=== PATIENT | male | born 1960 | race Asian ===

== ENCOUNTER 2023-12-20 08:53 | Outpatient (RCR) | payer OTHER, SELFPAY | END 2023-12-20 23:59 | disposition home or self-care (01) | LOC: RPT 08:53 | PROVIDERS: ATTENDING PHYSICIAN Internal Medicine | DX: M54.51 Vertebrogenic low back pain (principal); R25.2 Cramp and spasm; Z73.6 Limitation of activities due to disability | CPT/HCPCS: 97110; 97140; 97162 ==

== ENCOUNTER 2023-12-30 09:02 | Outpatient (RCR) | payer OTHER, SELFPAY | END 2023-12-30 23:59 | disposition home or self-care (01) | LOC: RPT 09:02 | PROVIDERS: ATTENDING PHYSICIAN Internal Medicine | DX: M54.51 Vertebrogenic low back pain (principal); R25.2 Cramp and spasm; Z73.6 Limitation of activities due to disability | CPT/HCPCS: 97110; 97140 ==

== ENCOUNTER 2024-02-17 17:02 | Outpatient (RCR) | payer OTHER, SELFPAY | END 2024-02-17 23:59 | disposition home or self-care (01) | LOC: RPT 17:02 | PROVIDERS: ATTENDING PHYSICIAN Internal Medicine | DX: M54.51 Vertebrogenic low back pain (principal); R25.2 Cramp and spasm; Z73.6 Limitation of activities due to disability; M79.642 Pain in left hand | CPT/HCPCS: 97018; 97110; 97140; 97166; 97535 ==

== ENCOUNTER 2024-03-20 09:16 | Outpatient (RCR) | payer OTHER, SELFPAY | END 2024-03-20 23:59 | disposition home or self-care (01) | LOC: RPT 09:16 | PROVIDERS: ATTENDING PHYSICIAN Internal Medicine | DX: M54.51 Vertebrogenic low back pain (principal); R25.2 Cramp and spasm; Z73.6 Limitation of activities due to disability; M79.642 Pain in left hand | CPT/HCPCS: 97010; 97018; 97035; 97110; 97140; 97535 ==

== ENCOUNTER 2024-04-20 12:29 | Outpatient (RCR) | payer OTHER, SELFPAY | END 2024-04-20 23:59 | disposition home or self-care (01) | LOC: RPT 12:29 | PROVIDERS: ATTENDING PHYSICIAN Internal Medicine | DX: M54.51 Vertebrogenic low back pain (principal); R25.2 Cramp and spasm; Z73.6 Limitation of activities due to disability | CPT/HCPCS: 97018; 97035; 97110; 97140 ==

== ENCOUNTER 2024-05-22 10:00 | Outpatient (RCR) | payer OTHER, SELFPAY | END 2024-05-22 12:00 | disposition home or self-care (01) | LOC: RPT 10:00 | PROVIDERS: ATTENDING PHYSICIAN Internal Medicine | DX: M54.51 Vertebrogenic low back pain (principal); R25.2 Cramp and spasm | CPT/HCPCS: 97110; 97140 ==

== ENCOUNTER 2025-02-15 09:28 | Outpatient (RCR) | payer OTHER, SELFPAY | END 2025-02-15 23:59 | disposition home or self-care (01) | LOC: RPT 09:28 | PROVIDERS: ATTENDING PHYSICIAN Internal Medicine | DX: M25.561 Pain in right knee (principal); M54.51 Vertebrogenic low back pain; Z73.6 Limitation of activities due to disability | CPT/HCPCS: 97110; 97140; 97162 ==

== ENCOUNTER 2025-03-21 15:15 | Outpatient (RCR) | payer OTHER, SELFPAY | END 2025-03-21 23:59 | disposition home or self-care (01) | LOC: RPT 15:15 | PROVIDERS: ATTENDING PHYSICIAN Internal Medicine | DX: M25.561 Pain in right knee (principal); M54.51 Vertebrogenic low back pain; Z73.6 Limitation of activities due to disability | CPT/HCPCS: 97110; 97140 ==

== ENCOUNTER → 2025-05-08 09:46 | Outpatient (REF) | payer OTHER, SELFPAY | LOC: MRI 3T 09:46 | PROVIDERS: ATTENDING PHYSICIAN Specialist; FAMILY PHYSICIAN Internal Medicine | DX: R97.20 Elevated prostate specific antigen [PSA] (principal) | CPT/HCPCS: 72197; A9575 ==

== ENCOUNTER 2025-05-19 14:20 | Inpatient (IN) | payer OTHER, SELFPAY ==
[2025-05-19] VITALS (22 sets, daily range): BP systolic 69–139; BP diastolic 43–76; BMI 26.2; BMI 25.7
[2025-05-19 11:15] LABS: Hematocrit 45.7 % (39.0-52.0); Hemoglobin 14.8 g/dL (13.0-18.0); Mean Corp Hgb Conc. 32.4 g/dL (33.0-37.0); Mean Corpuscular Volume 83.4 fL (80.0-94.0); Platelet Count 156 10^3/uL (130-400); Red Cell Dist. Width 12.7 % (11.5-14.5)
[2025-05-19 11:19] LABS: ALT (SGPT) 66 U/L (0-50); AST (SGOT) 54 U/L (17-59); Albumin 4.6 g/dl (3.5-5.0); Alkaline Phosphatase 94 U/L (38-126); Blood Urea Nitrogen 14 mg/dl (9-20); Calcium 8.6 mg/dl (8.4-10.2); Carbon Dioxide 20 mmol/L (22-30); Chloride 106 mmol/L (98-107); Estimated Creatinine Clearance 67 ml/min; Glucose 108 mg/dl (70-99); Potassium 4.4 mmol/L (3.5-5.1); Sodium 137 mmol/L (135-145); Total Protein 7.2 g/dl (6.3-8.2); eGFR > 60.00
--- NOTE | 2025-05-19 11:21 | ED.GENMED ---
History of Present Illness
General
Chief Complaint: Post Operative Problem(s)
Source: patient and spouse
Exam Limitations: none
Time Seen by Provider: 05/19/25 11:10
Nursing documentation reviewed up to this point in time: agreed with
History of Present Illness
History of Present Illness:
Note:
CHIEF COMPLAINT(S)
Cough and breathing difficulty following a biopsy procedure.
HISTORY OF PRESENT ILLNESS
The patient is a 64-year-old male who experienced the onset of cough and breathing difficulty after a biopsy procedure performed yesterday at his physicians office. The biopsy was done under local anesthesia. The patient reports that he began
coughing and was 'breathing really hard' following the procedure.
This episode is reminiscent of a prior experience related to a seizure, although the patient mentions that this is the first time occurring after a biopsy. He recalls an instance of being admitted to the hospital previously for similar symptoms.
In terms of medications, the patient states that he took Tylenol at 8:00 AM, but he is unsure of the precise amount. He believes the dose to be 500 mg. Additionally, the patient has been on an antibiotic, possibly mentioning 'cefixime,' having taken
two doses prior to yesterdays biopsy procedure.
He describes perineal pain and mentions discomfort when turning, alongside stating he felt a mass down there. These symptoms align with chest discomfort, but he denies any severe wheezing or use of inhalers, and there is no history of asthma noted.
The examination reveals a clear auscultation of lungs; however, shallow breathing is noted, warranting a chest X-ray for further evaluation. Given his symptoms, a CT scan has been considered as mentioned in the plan.
EXTERNAL RECORDS REVIEWED
The patient references his previous admission and procedure records, which are suggested to be accessed through a patient portal for current medications and antibiotic details.
SOCIAL DETERMINANTS AFFECTING HEALTH
The patient mentions experiencing anxiety related to his current symptoms and the medical interventions underway.
REVIEW OF SYSTEMS
- Respiratory: Cough and difficulty breathing, shallow respiration noted.
- Gastrointestinal: Possible history of diarrhea noted, though not an immediate concern.
- Genitourinary: Perineal discomfort, reported presence of a mass.
- Neurological: Mentions past experience with seizures.
- Psychiatric: Experiencing anxiety surrounding current health condition.
PHYSICAL EXAM
General: febrile, tachycardia
Skin: Warm, dry.
Head: Normocephalic, atraumatic.
Neck: Supple, trachea midline.
Eye Ears, nose, mouth and throat: Oral mucosa moist.
Cardiovascular: Normal peripheral perfusion, No edema.
Respiratory: Respirations are shallow, but auscultation reveals clear lungs.
Gastrointestinal : Abdomen nondistended
Back: Normal range of motion, Normal alignment.
Musculoskeletal: Normal ROM, normal strength.
Neurological: Alert and oriented to person, place, time, and situation, No focal neurological deficit observed.
Psychiatric: Cooperative, appropriate mood & affect.
PROBLEM LIST
Acute:
- Post-procedural respiratory difficulty
- Cough
- Anxiety related to current medical condition
PLAN
1. Admit the patient to the hospital for observation and management.
2. Conduct a chest X-ray to assess any pulmonary complications.
3. Evaluate the presence of a perineal mass via imaging.
4. Obtain a CT scan to further explore respiratory and related symptoms.
5. Administer medications for pain and anxiety management as indicated.
6. Assess for any potential allergic reaction to the antibiotic regimen with history review.
7. Provide supportive care, including safe mobilization practices to mitigate fall risk.
DIFFERENTIAL DIAGNOSIS
The Differential Diagnosis includes, in no particular order and is not limited to:
1. Post-procedural pneumothorax
2. Pulmonary embolism
3. Infection or abscess formation at the biopsy site
4. Drug-induced lung injury
5. Pneumonia
6. Anxiety-induced hyperventilation
7. Chronic obstructive pulmonary disease exacerbation
8. Heart failure exacerbation
9. Gastroesophageal reflux disease with aspiration
10. Perineal abscess or hematoma
CARE-UPDATE
05/19/25 - 15:03
The patient was admitted for sepsis of unclear etiology, potentially related to colitis. Currently receiving intravenous fluids and antibiotics, including cephalosporin and vancomycin. Will continue monitoring in the hospitalist care.
EKG
My independent EKG interpretation is:
- Time of EKG: Not provided
- Rhythm: Sinus tachycardia
- Heart rate: 122 bpm
- MA interval: Normal
- QRS duration: Normal
- QT interval: Normal
- Capay: Right axis deviation
- Abnormalities: None noted, no signs of ischemia, T wave inversions, or arrhythmias
Disposition:
SUMMARY OF ENCOUNTER
The patient, a 64-year-old male, presented to the emergency department with respiratory difficulty and cough following a biopsy procedure. The patients history included anxiety related to medical interventions and a recent admission for sepsis
potentially related to colitis. During the emergency department visit, the case was discussed with a urologist for suspected urinary retention, and intravenous fluids along with macrolide antibiotics, specifically vancomycin, were administered for
infection treatment.
DISPOSITION
Admit to hospitalists for further observation and care.
ASSESSMENT
Post-procedural respiratory difficulty, suspected sepsis related to colitis, and urinary retention.
EMERGENCY TREATMENTS ADMINISTERED
Administered intravenous fluids and vancomycin.
MANAGEMENT OF THE PATIENTS CARE WAS DISCUSSED WITH
Consultation with urology.
PLAN
The plan includes hospital admission under the care of hospitalists, continued monitoring for sepsis and colitis, initiation of intravenous fluid therapy, and administration of antibiotics. Urology to be involved in further management of urinary
retention.
DIAGNOSIS
1. Post-procedural respiratory difficulty (ICD-10: R06.89)
2. Sepsis, unspecified (ICD-10: A41.9)
3. Colitis, unspecified (ICD-10: K52.9)
4. Urinary retention (ICD-10: R33.9)
Phy Exam
Physical Exam
Physical Exam:
.
Sepsis
Sepsis Screening
Sepsis Assessment: Sepsis
Sepsis Screen
Sepsis Screen: Sepsis
Date: 05/19/25
Time: 15:06
Course
Orders/Labs/Results
Orders:
Orders
05/19/25 10:26
EKG [Electrocardiogram (*1)] Urgent
Reason for Study: Chest Pain
EKG- Treatment ONCE
05/19/25 10:47
Cardiac Monitoring- Treatment ONCE
IV Insert/Care/Rem.- Treatment PRN
Pulse Ox/cont/shift [RESP] Urgent
Quantity: 1
Special Instructions: CONTINUOUS
05/19/25 10:48
Complete Blood Count/With Diff Urgent
Comprehensive Metabolic Panel Urgent
Lactic Acid Q4H
Comment: ON ICE, CANCEL 2ND ORDER IF FIRST LACTIC ACID LEVEL <2
Urinalysis Reflex To Culture Urgent
Date Specimen was Collected: 05/19/25
Time Specimen was Collected: 10:47
Urine Microscopic Reflex Cult Urgent
Urine Culture Urgent
MORALES Source: U
Specimen Description:
Date Specimen was Collected: 05/19/25
Time Specimen was Collected: 10:47
05/19/25 10:57
Blood Culture Q20M
MORALES Source: Blood/Venous
Specimen Description:
Comment: Urgent from separate sites. If patient screens positive for possible sepsis
Blood Culture Q20M
MORALES Source: Blood/Venous
Specimen Description:
Comment: Urgent from separate sites. If patient screens positive for possible sepsis
05/19/25 11:22
0.9% Sodium Chloride 1000 ml [Nss] 2,000 ml IV BOLUS
05/19/25 11:34
Cefepime HCl [Maxipime] 2,000 mg IV NOW STA
05/19/25 11:35
Acetaminophen [Tylenol] 650 mg PO NOW STA
05/19/25 11:36
[place] Placement- Treatment ONCE
Reason for insertion: Acute Retention
CR Chest - 2 Views Urgent
Comment:
Reason For Exam: fever, cough
05/19/25 11:37
CT Abd/pelvis W Iv Cont Urgent
Comment:
Reason For Exam: lower abd pain, prostate biopsy 2d ago
05/19/25 11:57
COVID-19 Antigen Urgent
Source: Nasal Swab
INF RAPID [Influenza A+B Rapid Molecular] Urgent
MORALES Source: Nasal Swab
Specimen Description:
05/19/25 12:18
Sterile Water [Sterile Water For Injection] 10 ml .ROUTE .STK-MED ONE
Sterile Water [Sterile Water For Injection] 20 ml .ROUTE .STK-MED
05/19/25 12:38
Morphine Sulfate 4 mg IV NOW STA
05/19/25 12:39
Ondansetron Injectable [Zofran] 4 mg IV NOW STA
05/19/25 12:58
Vancomycin [Vancocin] 2,000 mg 0.9% Sodium Chloride 500 ml [Nss] 500 ml IV NOW
05/19/25 13:58
Admit/Transfer Patient As Directed
Co-Sign Provider:
Level of Care: Inpatient admission
Assign to:: IMU- Intermediate Care
Physician / Group: hospital medicine
Diagnosis: sepsis
Reason for Hospitalization: sepsis
Expected length of stay greater than two midnights?: Yes
ELOS- Estimated Length of Stay in days: 3
I certify the patient meets the requirements for IP care: Yes
PRN Pain Medication Management As Directed
May give lesser potent ordered pain med per pt: Yes
preference::
Protocol:: Medication orders for pain may be administered in a
manner that supports deferring to patient preference
when the pt is:
- Requesting an ordered lesser potent pain medication.
Least to most potent pain medications are defined
as: acetaminophen < NSAID < tramadol < opioids
(morphine, oxycodone, hydromorphone).
- Requesting a lesser dose of the same medication IF
ORDERED.
- Requesting a less intrusive route of administration
if both routes are prescribed by the provider (PO <
IV).
05/19/25 14:01
Code Status As Directed
Resuscitation Status: Full Code
05/19/25 15:00
Lactic Acid Q4H
Comment: ON ICE, CANCEL 2ND ORDER IF FIRST LACTIC ACID LEVEL <2
05/19/25 22:00
Cefepime HCl [Maxipime] 2,000 mg IV Q12H
Abnormal Lab Results
05/19/25
10:48
WBC 1.7 L* 10^3/uL
(4.8-10.8)
MCHC 32.4 L g/dL
(33.0-37.0)
Absolute Neuts (auto) 1.3 L 10^3/uL
(1.4-6.5)
Absolute Lymphs (auto) 0.4 L 10^3/uL
(1.2-3.4)
Absolute Monos (auto) 0.0 L 10^3/uL
(0.1-0.6)
Immature Gran % 1.2 H %
(0-0.5)
Monocytes % 1.2 L %
(1.7-9.3)
Carbon Dioxide 20 L mmol/L
(22-30)
Glucose 108 H mg/dl
(70-99)
Lactic Acid 3.7 H mmol/L
(0.7-2.0)
ALT 66 H U/L
(0-50)
Ur Occult Blood Reflex 4+ A
(Negative)
Leukocyte Esterase Rfl 1+ A
(Negative)
Urine RBC 90-100 A /HPF
(0-2)
Urine Bacteria (Reflex) Moderate A
(Negative)
Urine Albumin (Reflex) 3+ A
(Neg - Trace)
05/19/25 10:48
05/19/25 10:48
Vital Signs
Initial and Last Documented VS:
Initial Vital Signs
Temp Pulse Resp Pulse Ox
102.7 F H 127 20 95
05/19/25 10:24 05/19/25 10:24 05/19/25 10:24 05/19/25 10:24
Last Documented Vital Signs
Temp Pulse Resp BP Pulse Ox
104.1 F H 130 20 105/64 95
05/19/25 10:28 05/19/25 13:15 05/19/25 12:30 05/19/25 13:10 05/19/25 13:15
*Pulse Oximetry
SaO2: 96
Oxygen Mode of Delivery: Room air
Patient hypoxic: no
*Critical Care Note
Total Time (30-74mins, 75-104mins- exclusive of procedures): Not Applicable
ED Attending Note
-
Portions of this chart may have been created with voice recognition software.� Occasional wrong word or��sound alike� substitutions may have occurred due to the inherent limitations of voice recognition software.
Discharge Plan
Departure
Patient Disposition: Admit
Date of Disposition: 05/19/25
Time of Disposition: 12:58
Admit to: IMU
Presentation/result/management discussed w/ accepting MD/DO: Hospitalist
Patient with high blood pressure during this ER visit?: Yes
Condition: Fair
Discharge Problem:
Sepsis, Colitis, Acute urinary retention
Interventions
Interventions:
*Risk Screen - Suicide Last Done: 05/19/25 10:28
*General Assessment Last Done: 05/19/25 10:28
*ED COVID-19 Vaccine History Last Done: 05/19/25 10:46
[2025-05-19 11:25] LABS: Urine Character Slightly Cloudy (Clear)
[2025-05-19] MEDS: MAXIPIME 2000 MG IV (11:40)
[2025-05-19] MEDS: TYLENOL 650 MG PO ×2 (11:40→18:15)
[2025-05-19 11:41] LABS: Nucleated Red Blood Cells % 0 % (-)
[2025-05-19] MEDS: NSS 2000 IV (11:41)
[2025-05-19 12:07] LABS: Urine Red Blood Cell 90-100 /HPF (0-2)
[2025-05-19 12:25] LABS: COVID-19 Antigen Negative (Negative)
[2025-05-19] MEDS: MORPHINE SULFATE 4 MG IV (13:01)
[2025-05-19] MEDS: ZOFRAN 4 MG IV (13:02)
[2025-05-19] MEDS: VANCOCIN 540 MG IV (13:26)
--- NOTE | 2025-05-19 13:36 | HPS.HSE ---
Family Physician
-
Family Physician: NOT KNOW UNKNOWN - PT DOES
Chief Complaint
-
sepsis, urinary retention s/p prostate bx 1 day ago
History of Present Illness
64yoM PMH HLD presenting POD 1 from prostate bx with rigors, fever, nausea, vomiting, and urinary retention.
Pt was in usual state of health presented to the urologist for prostate bx for PI RADS 3 lesion on apex. Pt took cefdinir , today as prophylaxis for procedure. He was urinating appropriately and felt fine after the procedure. Upon waking this
morning, he was able to urinate but began to feel febrile, wheeze, and lightheaded. He then was unable to urinate independently. Pt reports having rigors, becoming weak. His called EMS.
In ED, pt was found to be febrile to 104.1, tachycardic to the 130s, normotensive. He was started on IVF and empiric abx cefepime and vancomycin. Upon leon placement, he was found to have hematuria. Pt reports resolved bloating feeling with leon
but continued sensation of having to void. He had formed stool today, denying diarrhea or constipation. In ED, pt reports nausea and vomiting.
Pt reports hx of retention 3 years ago whe he had fever and chillls with resolution after PO abx.
Medical History
Past Medical History
Past Medical History: Reports Hypercholesterolemia and Other (urinary retention 3 years ago)
Past Surgical History: Reports None
Social History
Tobacco: Non-smoker
Alcohol: Occasional
Personal:
Living: With Family
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
Family History
Family History: Not pertinent
Allergies / Home Medications
Allergies reflects when Allergies were last updated in [employer].
Home Medications with original date entered in [employer]
Allergy/Medication List:
NKDA
Review of Systems
-
History Source: Patient
A 12 point ROS was completed and negative except as noted: Yes
Constitutional: Reports Fever, Fatigue, Night Sweats and Chills
EENT: Reports No Symptoms
Respiratory: Reports No Symptoms (SOB resolved)
Cardiac: Reports No Symptoms
Abdomen/GI: Reports Nausea and Vomiting; Denies Abdominal Pain, Diarrhea or Bloody Stools
: Reports Bleeding and Leon
Musculoskeletal: Denies No Symptoms
Skin: Denies No Symptoms
Neurological: Denies No Symptoms
Endocrine: Denies No Symptoms
Hematologic/Lymphatic: Denies No Symptoms
Psych: Reports No Symptoms
Physical Exam
Vital Signs
Vital Signs
Temp Pulse Resp BP Pulse Ox
104.1 F H 130 20 105/64 95
05/19/25 10:28 05/19/25 13:15 05/19/25 12:30 05/19/25 13:10 05/19/25 13:15
Physical Exam
General: Well Developed, Well Nourished, No Apparent Distress, Comfortable, Fever and Sweats
HEENT: NormoCephalic, Anicteric, Moist mucous membranes and [place] Conjunctivae
Respiratory: Clear and Non Labored Respirations
Cardiac: S1/S2 and Regular Rhythm
GI: Soft, Non Tender (mild reported tenderness to deep palpation, non- peritonitic ) and Non Distended (baseline)
Genito-urinary: Bloody Urine and Leon
Musculoskeletal: No Edema
Skin: Warm
Neuro: AO x 3 and Nonfocal/grossly intact
Psych: Anxious
Laboratory Results
-
05/19/25 10:48
05/19/25 10:48
Laboratory Results
Lactic Acid 3.7 mmol/L (0.7-2.0) H 05/19/25 10:48
Total Bilirubin 1.0 mg/dl (0.2-1.3) 05/19/25 10:48
AST 54 U/L (17-59) 05/19/25 10:48
ALT 66 U/L (0-50) H 05/19/25 10:48
Alkaline Phosphatase 94 U/L (38-126) 05/19/25 10:48
Impression/Plan
-
IMPRESSION:
64yoM PMH urinary retention 3 years ago with recent prostate bx yesterday presenting with signs of sepsis. Pt is febrile Tmax 104.1, tachycardic 130, and leukopenic WBC 1.7, normotensive 139/76.
Pt received prophylactic cefdinir before and after prostate bx procedure yesterday, reports adherence. Pt has hx of urinary retention and fever treated outpt with PO abx 3 years ago. Discussion with urology, surmising likely acute on chronic
prostatitis aggravated in setting of prostate bx. CT demonstrated enteritis and transverse colitis, seemingly a sequelae of sepsis rather than source. Resolving nausea and vomiting, no abdominal pain. Lactic acidosis 3.7. Hematuria once leon
placed. ECG demonstrated sinus tachycardia with r axis.
PLAN:
#sepsis
#metabolic lactic acidosis
#prostatitis
- Continue broad spectrum abx cefepime and vancomycin adding flagyl for anaerobes
- IVF 150ml/hr s/p 2L bolus in ED
- ID consulted
- Urology following
- Follow enteritis. No abdominal pain. Trial clears, monitor for nausea.
- BC pending. Urine cultures pending.
- Flu, covid negative
- Keep leon in 1-2 days for retention and concerns of inflamation
DVT prophylaxis: lovenox
Diet: clears
Disposition: Admit to IMU
--- NOTE | 2025-05-19 14:15 | W.PN.URO.CBU ---
Today's Communication / Plan
-
continue present care
Assessment / Plan
-
urosepsis for transrecta bx prostae no physical eveidence of transverse colitis continue iv abs to cover anaerobes keep leon monitor wb
Diagnosis
-
Date of Service: May 19, 2025
-
Patient Diagnosis:sepsis s/p transrectal prostae bxs despite cefdir and tobramycin
Subjective
-
feeling better
Objective
-
Vital Signs
Temp Pulse Resp BP Pulse Ox
104.1 F H 130 20 105/64 95
05/19/25 10:28 05/19/25 13:15 05/19/25 12:30 05/19/25 13:10 05/19/25 13:15
Laboratory Results
05/19/25 10:48
05/19/25 10:48
Review of Systems
-
: Frequency and Difficulty Voiding
Physical Exam
-
General - well developed, well nourished, no acute distress
Chest - clear bilaterally
Abdomen - soft, non-tender, positive bowel sounds, no CVAT, no incisional pain or distention
Genitalia - normal
Rectal - normal
Skin - warm & dry with no rash
Neuro - AOx3, no motor deficits
Extremities - no clubbing, no cyanosis, no edema
Incision - clean, dry
Dressing - clean, dry, intact
Care Review
Data Reviewed
Discussed with: Internal Medicine, Nursing and Family
CT Scan: Image Pers Reviewed
--- NOTE | 2025-05-19 14:31 | PHA.VAN.IN ---
Assessment
- Assessment
Renal Function: Unknown baseline
Maximum Temperature: 104.1 F
Concomitant Antimicrobials: CEFEPIME
AUC Dosing Plan
- Dosing Variables
Dosing Weight (kg): 80
Dosing CrCl (ml/min): 67
Vd coefficient (L/kg): 0.7
- Empiric Dosing
Initial / Loading Dose: VANCO 2000MG X1
Maintenance Regimen: VANCO 750MG Q12H
Estimated AUC (mcg*h/mL): 466
Estimated Peak (mcg*h/mL): 26.1
Estimated Trough (mcg/ml): 13.9
Estimated Half Life (H): 11.5
- Monitoring
No levels ordered at this time: CONSIDER LEVELS AT STEADY STATE
Pharmacokinetics Vancomycin I
- -
Patient Age: 64
Patient Sex: Male
Vancomycin Day #: 1
Indication: Genito-Urinary Tract
Requesting Provider: DR. MORENO
Height / Weight:
Height 5 ft 9 in
Actual Weight 80.3 kg
- Vital Signs / Lab Results
Temp Pulse Resp BP Pulse Ox
104.1 F H 130 20 105/64 95
05/19/25 10:28 05/19/25 13:15 05/19/25 12:30 05/19/25 13:10 05/19/25 13:15
Lab Results - Hematology
05/19/25
10:48
WBC 1.7 L*
Lab Results - Chemistry
05/19/25
10:48
BUN 14
Creatinine 1.1
Estimated Creat Clear 67
Albumin 4.6
05/19/25
10:48
Lactic Acid 3.7 H
Lab Results - Urine
05/19/25
10:48
Urine Nitrite (Reflex) Negative
Leukocyte Esterase Rfl 1+ A
Urine WBC (Reflex) 6-10
Ur Squamous Epith Cells 3-5
Urine Bacteria (Reflex) Moderate A
Microbiology Results
05/19/25 11:57 Influenza Types A & B (DESTINI) - Final
Nasal Swab Negative for Influenza A & B, NAAT
Negative results must be combined with clinical observations
and patient history.
Nucleic Acid Amplification test (NAAT)performed on the
[employer] platform.
--- NOTE | 2025-05-19 15:03 | HPS.HSE ---
Addendum entered and electronically signed by Marv Rincon MD 05/29/25 08:45:
Read, reviewed, and agree. See same day progress note for additional details. Time spent reviewing records in EMR, med rec, consults, notes, d/w consultants, nursing, family, and CM
Addendum entered and electronically signed by Ana Botello MD, Resident 05/28/25 18:47:
Not on home medications.
Original Note:
Family Physician
-
Family Physician: NOT KNOW UNKNOWN - PT DOES
Chief Complaint
-
sepsis, urinary retention s/p prostate bx 1 day ago
History of Present Illness
64yoM PMH HLD presenting POD 1 from prostate bx with rigors, fever, nausea, vomiting, and urinary retention.
�
Pt was in usual state of health presented to the urologist for prostate bx for PI RADS 3 lesion on apex. Pt took cefdinir , , today as prophylaxis for procedure. He was urinating appropriately and felt fine after the procedure. Upon waking this
morning, he was able to urinate but began to feel febrile, wheeze, and lightheaded. He then was unable to urinate independently. Pt reports having rigors, becoming weak. His called EMS.
�
In ED, pt was found to be febrile to 104.1, tachycardic to the 130s, normotensive. He was started on IVF and empiric abx cefepime and vancomycin. Upon leon placement, he was found to have hematuria. Pt reports resolved bloating feeling with leon
but continued sensation of having to void. He had formed stool today, denying diarrhea or constipation. In ED, pt reports nausea and vomiting.
�
Pt reports hx of retention 3 years ago whe he had fever and chillls with resolution after PO abx.
�
Medical History
Past Medical History
Past Medical History: Reports Hypercholesterolemia and Other (urinary retention 3 years ago)
Past Surgical History: Reports None
Social History
Tobacco: Non-smoker
Alcohol: Occasional
Personal:
Living: With Family
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)
Family History
Family History: Not pertinent
Allergies / Home Medications
Allergies reflects when Allergies were last updated in [employer].
Home Medications with original date entered in [employer]
Allergy/Medication List:
NKDA
Review of Systems
-
History Source: Patient
A 12 point ROS was completed and negative except as noted: Yes
Constitutional: Reports Fever, Fatigue and Chills
EENT: Reports No Symptoms
Respiratory: Reports No Symptoms (SOB resolved)
Cardiac: Reports No Symptoms
Abdomen/GI: Reports Nausea; Denies Abdominal Pain, Diarrhea or Bloody Stools
: Reports Bleeding and Leon
Musculoskeletal: Reports No Symptoms
Skin: Reports No Symptoms
Neurological: Reports No Symptoms
Endocrine: Reports No Symptoms
Hematologic/Lymphatic: Reports No Symptoms
Psych: Reports Anxiety
Physical Exam
Vital Signs
Vital Signs
Temp Pulse Resp BP Pulse Ox
98.6 F 113 22 81/55 95
05/20/25 03:00 05/20/25 06:30 05/20/25 06:30 05/20/25 06:30 05/20/25 06:30
Physical Exam
General: Well Developed, Well Nourished, Appears in Distress, Pain and Fever
HEENT: NormoCephalic, Anicteric, Moist mucous membranes, PERRLA and [place] Conjunctivae
Respiratory: Clear and Non Labored Respirations
Cardiac: S1/S2 and Regular Rhythm
GI: Soft, Non Tender (mild tenderness to deep palpation, nonperitonitic ) and Non Distended
Genito-urinary: Bloody Urine and Leon
Musculoskeletal: No Clubbing, No Cyanosis and No Edema
Skin: Warm; No Dry (diaphoretic)
Neuro: AO x 3, No Motor Deficits and Nonfocal/grossly intact
Laboratory Results
-
05/20/25 03:56
05/20/25 03:56
Laboratory Results
Lactic Acid 2.7 mmol/L (0.7-2.0) H 05/20/25 03:56
Total Bilirubin 0.9 mg/dl (0.2-1.3) 05/20/25 03:56
AST 240 U/L (17-59) H 05/20/25 03:56
ALT 183 U/L (0-50) H 05/20/25 03:56
Alkaline Phosphatase 50 U/L (38-126) 05/20/25 03:56
Impression/Plan
-
IMPRESSION:
64yoM PMH urinary retention 3 years ago with recent prostate bx yesterday presenting with signs of sepsis. Pt is febrile Tmax 104.1, tachycardic 130, and leukopenic WBC 1.7, normotensive 139/76.
�
Pt received prophylactic cefdinir before and after prostate bx procedure yesterday, reports adherence. Pt has hx of urinary retention and fever treated outpt with PO abx 3 years ago. Discussion with urology, surmising likely acute on chronic
prostatitis aggravated in setting of prostate bx. CT demonstrated enteritis and transverse colitis, seemingly a sequelae of sepsis rather than source. Resolving nausea and vomiting, no abdominal pain. Lactic acidosis 3.7. Hematuria once leon
placed. ECG demonstrated sinus tachycardia with r axis.
�
�
PLAN:
#sepsis
#metabolic lactic acidosis
#prostatitis
- Continue broad spectrum abx cefepime and vancomycin adding flagyl for anaerobes
- IVF 150ml/hr s/p 2L bolus in ED
- ID consulted
- Urology following
- Follow enteritis. No abdominal pain. Trial clears, monitor for nausea.
- BC pending. Urine cultures pending.
- Flu, covid negative
- Keep loen in 1-2 days for retention and concerns of inflamation
�
DVT prophylaxis: lovenox
Diet: clears
Disposition: Admit to IMU
--- NOTE | 2025-05-19 15:13 | W.PN.UPDATE ---
Update Note
Progress Note Update
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 States woke up this morning with wheezing abdominal pain. CT abdomen pelvis demonstrating transverse colitis along with prostate
hypertrophy no abscess. While in the ED Regalado catheter was placed found to be leukopenic with a lactate of 3.7. Provided with 2 L of IV fluid along with cefepime and vancomycin. Personally spoke with urology in front of his room recommended
anaerobic coverage due to transrectal approach of biopsy.
Abdomen mildly distended however without evidence of rigidity/peritonitic findings. He is warm to touch though recorded temperature over 104.1.
Sepsis with fever leukopenia source likely GI/
- Check stool cultures however unlikely as decline diarrhea/nausea vomiting therefore low clinical suspicion for active colitis
- Continue serial abdominal examinations
- Follow-up blood and urine culture
- Start Flagyl for anaerobic coverage, continue cefepime for recent GC you intermittent hesitation for Pseudomonas coverage, continue vancomycin
- Sepsis bundle
- Follow-up lactate, until cleared
- ID consult
Metabolic acidosis secondary to lactic acid
- IV fluid maintenance
BPH
- Continue Flomax
- Follow up on protstate bx
- Uro following
--- NOTE | 2025-05-19 15:25 | CON.ID ---
Consultation
-
Date/Time Consultation Requested: May 19, 2025 1513
Date/Time Consultation Performed: May 19, 2025 152
Requesting Provider: Dr. Ana Botello
Performing Provider: Dr. Mary Banegas
Reason for Consultation: Prostate biopsy yesterday with sepsis
Chief Complaint / Past History
Chief Complaint
Rigors and wheezing
History of Present Illness
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 The patient reports he was prescribed prophylactic cefdinir. He
also received tobramycin at time of procedure. He was fine post procedure, urinating well, formed stool. However last night he developed sudden onset of severe shaking chills/rigors, and started to wheeze/air hunger. Was coughing a little bit.
This morning he noted perineal pain without bladder and rectum. No abdominal pain. No diarrhea. In the ER temperature up to 104, white count of 1.7. CT abdomen pelvis�possible mild colitis of the transverse colon versus due to limited
distention, no prostate abscess. Patient was dripping blood from the urethra and therefore Regalado catheter placed. He feels better after Regalado catheter placement. No flank pain.
Past History
Additional Past Medical History:
Dyslipidemia
BPH
Atopic dermatitis
Additional Past Surgical History:
Bilateral hernia repair
Hernia repair with mesh
Lisfranc arch injury left foot repair
Allergy History:
No Known Allergies Allergy (Verified 05/19/25 10:24)
Medications Reviewed: Yes
Current Antibiotics:
Cefepime
Vancomycin
Metronidazole
Social History
Tobacco: Non-Smoker
Alcohol: None
Drug: None
Living: With Family
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
Review of Systems
Review of Systems
General: Fever, Chills and Change in Appetite
HEENT: Negative Sinus Problems or Headache
Cardiovascular: Negative Chest Pain
Respiratory: Negative Dyspnea, Cough or Sputum Production
Gasteroenterology: Negative Nausea, Vomiting or Diarrhea
Genital / Urological: Hematuria; Negative Flank Pain
Endocrine: Weakness
Skin / Hair / Nails: Negative Rash
Neurological: Negative Dizziness
All systems: All other systems were reviewed and were negative
Vital Signs
Temp Pulse Resp BP Pulse Ox
104.1 F H 130 20 105/64 95
05/19/25 10:28 05/19/25 13:15 05/19/25 12:30 05/19/25 13:10 05/19/25 13:15
Physical Exam
Physical Exam
Constitutional: No Acute Distress and Non-toxic
Eyes: No Conjunctival Hemorrhage and Sclera Anicteric
Cardiovascular: S1/S2
Pulmonary: Clear
Gastrointestinal: Soft, Non Tender, Non Distended and Normal Bowel Sounds
Genito-Urinary: Regalado; Negative CVA Tenderness
Extremities: Negative Edema
Neurological: AO x 3
Lab / Diagnostic Study Results
05/19/25 10:48
05/19/25 10:48
Abs Immat Gran (auto) 0.0 10^3/uL (0-0.05) 05/19/25 10:48
Absolute Neuts (auto) 1.3 10^3/uL (1.4-6.5) L 05/19/25 10:48
Absolute Lymphs (auto) 0.4 10^3/uL (1.2-3.4) L 05/19/25 10:48
Absolute Monos (auto) 0.0 10^3/uL (0.1-0.6) L 05/19/25 10:48
Absolute Basos (auto) 0.0 10^3/uL (0-0.2) 05/19/25 10:48
Immature Gran % 1.2 % (0-0.5) H 05/19/25 10:48
Neutrophils % 75.0 % (42.2-75.2) 05/19/25 10:48
Lymphocytes % 21.4 % (20.5-51.1) 05/19/25 10:48
Monocytes % 1.2 % (1.7-9.3) L 05/19/25 10:48
Eosinophils % 0.6 % (0-6) 05/19/25 10:48
Basophils % 0.6 % (0-2) 05/19/25 10:48
Lactic Acid 3.7 mmol/L (0.7-2.0) H 05/19/25 10:48
Ur Squamous Epith Cells 3-5 /LPF (Few) 05/19/25 10:48
Microbiology Results
Micro:
05/19/25 11:57 Influenza Types A & B (DESTINI) - Final
Nasal Swab Negative for Influenza A & B, NAAT
Negative results must be combined with clinical observations
and patient history.
Nucleic Acid Amplification test (NAAT)performed on the
[employer] platform.
05/19/25 10:48 Urine Culture - Pending
Urine
05/19/25 10:57 Blood Culture - Pending
Blood/Venous
05/19/25 10:57 Blood Culture - Pending
Blood/Venous
05/19/25 CT a/p: Possible mild colitis of the transverse colon versus findings due to limited distention. Limited evaluation without oral contrast. Moderate prostate hypertrophy.No evidence of abscess formation.
Assessment / Plan
# Suspect bacteremia from prostate biopsy
# Sepsis: fever, leukopenia, tachycardia, elevated lactic acid
# s/p transrectal prostate biopsy 05/18/25
- Follow blood cx's
- DC Vanco, cefepime, metronidazole.
- At risk for ESBL post prostate bx. Cover with meropenem 500mg IV q6h.
- Trend temps, wbc.
# Possible mild transverse colitis on CT DOES NOT clinically correlate
--- NOTE | 2025-05-19 15:38 | CM ---
CM met with pt bedside
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
Pt is independent with his ADLs, denies use of DMEs, drives+
Confirmed [facility] plan with Rx coverage
PCP- Andre Washburn
Rx- Kian Wallis
Discharge Disposition- home, follow for needs
[2025-05-19] MEDS: LR 1000 IV ×3 (15:51→21:59)
[2025-05-19] MEDS: NSS (PRESERVATIVE FREE) 10 ML IV (16:03)
[2025-05-19] MEDS: PROTONIX IV 40 MG IV (16:03)
[2025-05-19] MEDS: LOVENOX 40 MG SC (18:15)
[2025-05-19] MEDS: STERILE WATER FOR INJECTION 10 ML IV ×2 (18:15→23:23)
[2025-05-19] MEDS: MERREM 500 MG IV ×2 (18:16→23:22)
--- NOTE | 2025-05-19 18:36 | PTCARENOTE ---
pt arrived via ed. aaox3. anxious. able to walk to the bed. states 10/10 pain in penis attila area from leon cath. temp 100.4 tylenol given as ordered. ivf running as ordered. pt resp rate 40 slight ex wheeze. bp 88/63 heart rate 120's. made
aware of pt condition.
--- NOTE | 2025-05-19 18:41 | W.PN.UPDATE ---
Update Note
Progress Note Update
Nurse updated 'BP 88/63 Resp 40 with slight expiratory wheeze saturating 95%. 100.4F'
On exam, pt is breathing around 30/min, denying lightheadedness in bed, no wheezes appreciated.
Start with fluid bolus. Levophed for MAP<65. 2L NC, titrate as needed for SpO2>92
[2025-05-19] MEDS: LEVOPHED 250 IV (19:08)
[2025-05-19] MEDS: DILAUDID 0.5 MG IV ×2 (19:21→23:22)
--- NOTE | 2025-05-19 20:00 | PTCARENOTE ---
Received pt. at 1900. Pt. awake, alert, and oriented. C/o pain related to prostate. Hypotensive. Levophed infusion started to maintain MAP >65. PRN Dilaudid given once vasopressor was started, see OCT. Heart rhythm sinus tach. Currently on room air.
Lungs sound diminished. Clear liquid diet is ordered. Abdomen round. [address] catheter [address] place. Draining without issue. Skin as documented. Discussed plan of care with patient and who is at bedside.
[2025-05-20] VITALS (44 sets, daily range): BP systolic 81–174; BP diastolic 55–107; PULSE 2–113; BMI 25.7
[2025-05-20 04:17] LABS: Hematocrit 38.2 % (39.0-52.0); Hemoglobin 12.7 g/dL (13.0-18.0); Mean Corp Hgb Conc. 33.2 g/dL (33.0-37.0); Mean Corpuscular Volume 84.0 fL (80.0-94.0); Platelet Count 112 10^3/uL (130-400); Red Cell Dist. Width 13.2 % (11.5-14.5)
[2025-05-20 04:31] LABS: Nucleated Red Blood Cells % 0 % (-)
[2025-05-20] MEDS: DILAUDID 0.5 MG IV ×3 (04:31→19:55)
[2025-05-20] MEDS: LR 1000 IV ×3 (04:41→17:40)
[2025-05-20 04:49] LABS: ALT (SGPT) 183 U/L (0-50); AST (SGOT) 240 U/L (17-59); Albumin 3.2 g/dl (3.5-5.0); Alkaline Phosphatase 50 U/L (38-126); Blood Urea Nitrogen 18 mg/dl (9-20); Calcium 7.0 mg/dl (8.4-10.2); Carbon Dioxide 20 mmol/L (22-30); Chloride 110 mmol/L (98-107); Estimated Creatinine Clearance 63 ml/min; Glucose 84 mg/dl (70-99); Potassium 4.3 mmol/L (3.5-5.1); Sodium 136 mmol/L (135-145); Total Protein 5.4 g/dl (6.3-8.2); eGFR > 60.00
[2025-05-20] MEDS: VALIUM INJECTION 2 MG IV (04:57)
[2025-05-20] MEDS: MERREM 500 MG IV ×4 (04:58→23:40)
[2025-05-20] MEDS: STERILE WATER FOR INJECTION 10 ML IV ×4 (04:58→23:40)
[2025-05-20] MEDS: VAPONEFRIN NEBS 0.5 ML INH (05:44)
[2025-05-20] MEDS: BENADRYL 50 MG IV (05:45)
[2025-05-20] MEDS: PEPCID 20 MG IV (05:51)
[2025-05-20] MEDS: ZOFRAN 4 MG IV (05:58)
--- NOTE | 2025-05-20 06:00 | PTCARENOTE ---
After receiving IV valium, pt. complaining of shakes. Became tachycardic. Expiratory wheezing in upper airway. Hypertensive. Contacted house provider. IV benadryl given. Respiratory contacted as well. Racemic epinephrine given by respiratory
therapist. Pt. also having episodes of dry heaving. IV zofran and IV pepcid administered. STAT chest x ray ordered. Pt. is now more calm. Blood pressure normotensive. Remains tachycardic. No audible wheezing at this time. IV valium placed on hold.
[2025-05-20] MEDS: NSS (PRESERVATIVE FREE) 8 ML IV (06:04)
--- NOTE | 2025-05-20 06:10 | W.PN.UPDATE ---
Update Note
Progress Note Update
RN reported patient having trouble breathing tachypneic 26, with expiratory wheezing. patient seen and evaluated. patient anxious noted to be in respiratory distress with audible wheezing, ? mild stridor 98.6 150/ 100's 130's, 30-40 97% 2l, patient
reports difficulty breathing, denies swelling of tongue or throat swelling, stated stomach upset and noted dry heaving, nauseous, RT made aware, Racemic neb , IV Benadryl IV Pepcid IV Zofran given. Chest Xray r/o volume overload
116/72 99% 2l 24 115-120, patient states feeling much better, faint wheeze auscultated, HR Regular tachy, abd distended + BS hypoactive + Flatus LBM 05/[address] draining well
patient had received IV Valium one hour prior, patient states his discomfort started shortly after that with wheezing getting worse
will hold Valium at present, Levophed on hold currently, chest xray pending
unsure Valium related reaction, paradoxical, though patient thinks it may be from Valium
--- NOTE | 2025-05-20 07:08 | W.PN.HOSP.TC ---
Addendum entered and electronically signed by Marv Rincon MD 05/29/25 08:45:
Read, reviewed, and agree. See same day progress note for additional details. Time spent reviewing records in EMR, med rec, consults, notes, d/w consultants, nursing, family, and CM
Addendum entered and electronically signed by Marv Rincon MD 05/20/25 12:36:
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 States woke up this morning with wheezing abdominal pain. CT abdomen pelvis demonstrating transverse colitis along with prostate
hypertrophy no abscess. While in the ED Leon catheter was placed found to be leukopenic with a lactate of 3.7. Provided with 2 L of IV fluid along with cefepime and vancomycin. Personally spoke with urology in front of his room recommended
anaerobic coverage due to transrectal approach of biopsy.
Abdomen mildly distended however without evidence of rigidity/peritonitic findings. He is warm to touch though recorded temperature over 104.1.
Septic shock secondary to GNR bacteremia (ankush gregorio) with fever leukopenia source likely GI/, hypotensive with map <65 breifly
-Started on pressors overrnight, was able to wean
- Check stool cultures however unlikely as decline diarrhea/nausea vomiting therefore low clinical suspicion for active colitis
- Continue serial abdominal examinations
- Follow-up blood and urine culture
- ID started Meropenem
- Sepsis bundle
- Follow-up lactate, until cleared
- ID following
Metabolic acidosis secondary to lactic acid
- IV fluid maintenance
BPH
- Continue Flomax
- Follow up on protstate bx
- Uro following
Original Note:
Today's Communication/Plan
-
Plan reviewed with attending
Continue fluid resuscitation.
Continue meropenem, BC and UC positive for E coli
ID and urology following
RUQ US
Monitor in IMU
Trend lactate
MAP >65 levophed
Assessment / Plan
Assessment / Plan
IMPRESSION:
64yoM PMH urinary retention 3 years ago with recent prostate bx yesterday presenting with signs of sepsis.
Admitted for Tmax 104.1, tachycardic 130, and leukopenic WBC 1.7, normotensive 139/76. Pt received prophylactic cefdinir before and after prostate bx procedure, reports adherence. Pt has hx of urinary retention and fever treated outpt with PO abx 3
years ago. Discussion with urology, surmising likely acute on chronic prostatitis aggravated in setting of prostate bx. CT demonstrated enteritis and transverse colitis, seemingly a sequelae of sepsis rather than source. Resolving nausea and
vomiting, no abdominal pain. Lactic acidosis 3.7. Hematuria once leon placed. ECG demonstrated sinus tachycardia with r axis.
Overnight, pt BP dropped. Fluid bolus given. Levophed started for MAP<65. Pt was complaining of bladder spasms and received dose valium to relieve symptoms with acute onset of wheezing, diaphoresis, hypertension ameliorated with bendryl, pepcid,
racemic epi, zofran. After episode, pt BP stabilized.
Today, pt still feels ill but improving with resolved nausea, SOB. Afebrile. CXR demonstrated bibasilar atelectasis with correlation on exam, not concerned for pneumonia currently. WBC 16.7. Lactate trending down, most recent 2.5. LFTs elevated AST
250 AST 183. Stooling appropriately. [place], blood tinged urine, less red than yesterday. BC and UC positive for E coli. Second BC drawn.
�
�
PLAN:
#septic shock
#metabolic lactic acidosis
#prostatitis
- Continue abx.
- ID following, recommended meropenem with concern of ESBL.
- IVF 150ml/hr s/p 2L bolus in ED. LR bolus last night.
- Urology following
- Follow enteritis, most likely in setting of sepsis. No abdominal pain. Trial clears, monitor for nausea.
- BC and UC positive for E coli. Awaiting sensitivities. Second BC pending.
- Flu, covid negative
- Keep leon in 1-2 days for retention and concerns of inflammation
#urinary retention
#bladder/urethral spasms
- Leon in place
- Urology following: Recommend against antispasmodics with risk of further retention. Recommended valium, although on hold due to the reaction overnight. No suppositories with prostatitis
#transaminitis
- in setting of septic shock, possible end organ damage.
- RUQ abdominal US ordered
�
DVT prophylaxis: lovenox
Diet: clears
Disposition: IMU
Anticipated Discharge: 24 - 48 hours
Subjective/Interval History
-
Date of Service: May 20, 2025
Pt reports continued bladder and urethra discomfort/spasms. Continues having BM. He reports having an episode of wheezing, dry heaving, nausea, and hypertension after receiving valium last night. After he was given bendryl, pepcid, zofran, racemic
epi, symptoms resolved.
Denies SOB, abdominal pain.
Objective Data
-
Labs:
Laboratory Results
05/20/25
03:56
WBC 16.7 H
Hgb 12.7 L
Hct 38.2 L
Plt Count 112 L D
Sodium 136
Potassium 4.3
Chloride 110 H
Carbon Dioxide 20 L
BUN 18
Creatinine 1.2
Glucose 84
Calcium 7.0 L D
Total Bilirubin 0.9
AST 240 H
ALT 183 H
Alkaline Phosphatase 50
Vital Signs:
Vital Signs
Temp Pulse Resp BP Pulse Ox
98.6 F 113 22 81/55 95
05/20/25 03:00 05/20/25 06:30 05/20/25 06:30 05/20/25 06:30 05/20/25 06:30
I&O
05/19/25 05/20/25 05/21/25
06:59 06:59 06:59
Intake Total 1800 / 1800
Output Total 1899 / 1899
Balance -100 / -100
Review of Systems
-
History Source: Patient
Constitutional: Reports Fatigue, Chills and Weakness
EENT: Reports No Symptoms Reported; Denies Blurry Vision or Decreased Vision
Respiratory: Reports No Symptoms
Cardiac: Reports No Symptoms and Diaphoresis
Abdomen/GI: Reports No Symptoms
Genitourinary: Reports Difficulty Voiding (feels like he must urinate) and Bleeding
Musculoskeletal: Reports No Symptoms
Skin: Reports No Symptoms
Neuro: Reports No Symptoms
Endocrine: Reports No Symptoms
Hematologic / Lymphatic: Reports No Symptoms
Allergy / Immunology: Reports No Symptoms
Psych: Reports Anxious
Physical Exam
-
General: Well Developed, Well Nourished, Fever, Chills and Sweats
HEENT: Normocephalic, Atraumatic and Moist Mucous Membranes
Respiratory: Clear to Auscultation and Crackles (basilar)
Cardiac: Regular Rhythm and S1/S2
GI: Soft, Nontender and Nondistended
Musculoskeletal: No Edema
Skin: Warm; Negative Dry (diaphoretic)
Neuro: AO x 3, No Motor Deficits and Nonfocal/Grossly Intact
Psych: Anxious
--- NOTE | 2025-05-20 07:08 | W.PN.UPDATE ---
Update Note
Progress Note Update
corrected ca 7.2 calcium gluconate IV 1g given,
Elevated AST ALT tylenol on hold, US abd
[2025-05-20] MEDS: CALCIUM GLUCONATE 100 IV (09:20)
[2025-05-20] MEDS: NSS (PRESERVATIVE FREE) 10 ML IV (09:21)
[2025-05-20] MEDS: PROTONIX IV 40 MG IV (09:21)
[2025-05-20] MEDS: FLOMAX 0.4 MG PO (09:21)
--- NOTE | 2025-05-20 10:55 | W.PN.ID1 ---
Date of Service
Date of Service: May 20, 2025
Today's Communication
Continue meropenem.
Assessment / Plan
# E. coli bacteremia from prostate biopsy
# Severe Sepsis: fever, leukocytosis, tachycardia, hypotension (brief course of pressor), elevated lactic acid
# s/p transrectal prostate biopsy 05/18/25
- Repeat blood cx's
- Continue meropenem 500mg IV q6h (d1)
- Trend temps, wbc, vitals
Chief Complaint
-: Fever, Leukocytosis, UTI and Bacteremia
Subjective / Review of Systems
c/o bladder spasm. Had episode of wheezing/SOB after valium.
Vital Signs / Physical Exam
Vital Signs
Vital Signs
Temp Pulse Resp BP Pulse Ox
98.8 F 107 20 83/59 94
05/20/25 07:05 05/20/25 08:30 05/20/25 08:30 05/20/25 08:30 05/20/25 08:30
Physical Exam
Constitutional: Acutely Ill
Eyes: Sclera Anicteric
Cardiovascular: S1/S2 (tachycardic)
Pulmonary: Clear
Gastrointestinal: Soft, Non Tender, Non Distended and Normal Bowel Sounds
Genito-Urinary: Regalado and Clear Urine
Extremities: Negative Edema
Neurological: AO x 3
Objective Data
Lab Data
Lab Results
05/20/25 03:56
05/20/25 03:56
Estimated Creat Clear 63 ml/min 05/20/25 03:56
Lactic Acid 2.5 mmol/L (0.7-2.0) H 05/20/25 08:18
Total Bilirubin 0.9 mg/dl (0.2-1.3) 05/20/25 03:56
AST 240 U/L (17-59) H 05/20/25 03:56
ALT 183 U/L (0-50) H 05/20/25 03:56
Alkaline Phosphatase 50 U/L (38-126) 05/20/25 03:56
Most recent labs reviewed.
Micro Results:
05/19/25 10:48 Urine Culture - Preliminary
Urine Escherichia coli
05/19/25 10:57 Blood Culture - Preliminary
Blood/Venous Escherichia coli
Gram Stain - Final
05/19/25 10:57 Blood Culture - Preliminary
Blood/Venous Positive culture in progress
Gram Stain - Final
05/20/25 03:56 Blood Culture - Pending
Blood/Venous
05/19/25 11:57 Influenza Types A & B (DESTINI) - Final
Nasal Swab Negative for Influenza A & B, NAAT
Negative results must be combined with clinical observations
and patient history.
Nucleic Acid Amplification test (NAAT)performed on the
[employer] platform.
05/19/25 CT a/p: Possible mild colitis of the transverse colon versus findings due to limited distention. Limited evaluation without oral contrast. Moderate prostate hypertrophy.No evidence of abscess formation.
--- NOTE | 2025-05-20 11:05 | W.PN.URO.CBU ---
Today's Communication / Plan
-
per id and hospitalist kyree leon
Assessment / Plan
-
urosepsis for transrecta bx prostae no physical eveidence of transverse colitis continue iv abs to cover anaerobes keep leon monitor wb will try and remove fokley am wednesday as uncomforatble and nidus of infection not good candidiate
for suppositories nr antichominergics
Diagnosis
-
Date of Service: May 20, 2025
-
Patient Diagnosis:
Post Op Day:
Patient Diagnosis:sepsis s/p transrectal prostae bxs despite cefdir and tobramycin
Subjective
-
bladder spasms
Objective
-
Vital Signs
Temp Pulse Resp BP Pulse Ox
98.8 F 107 20 83/59 94
05/20/25 07:05 05/20/25 08:30 05/20/25 08:30 05/20/25 08:30 05/20/25 08:30
Intake and Output
05/19/25 05/20/25 05/21/25
06:59 06:59 06:59
Intake Total 1800 / 1800
Output Total 1899 / 1899
Balance -100 / -100
Intake:
IV fluids (Total) 1800 / 1800
Output:
Urine, Leon 1899
Laboratory Results
05/20/25 03:56
05/20/25 03:56
Review of Systems
-
: Difficulty Voiding, Urgency and Other
Physical Exam
-
General - well developed, well nourished, no acute distress
Chest - clear bilaterally
Abdomen - soft, non-tender, positive bowel sounds, no CVAT, no incisional pain or distention
Genitalia - normal
Rectal - normal
Skin - warm & dry with no rash
Neuro - AOx3, no motor deficits
Extremities - no clubbing, no cyanosis, no edema
Incision - clean, dry
Dressing - clean, dry, intact
Counseling
-
keep leon no spasm tx for now
Care Review
Data Reviewed
Discussed with: Hospitalist, Nursing and Family
--- NOTE | 2025-05-20 13:18 | W.DCSUMMARY ---
Discharge Summary
Discharge Data
Date of Admission: 05/19/25
Date of Discharge: 05/28/25
-
Pending Results: No
Hospital Course
IMPRESSION:
64yoM PMH urinary retention 3 years ago with recent prostate bx yesterday presenting with signs of sepsis. Pt is febrile Tmax 104.1, tachycardic 130, and leukopenic WBC 1.7, normotensive 139/76.
�
Pt received prophylactic cefdinir before and after prostate bx procedure yesterday, reports adherence. Pt has hx of urinary retention and fever treated outpt with PO abx 3 years ago. Discussion with urology, surmising likely acute on chronic
prostatitis aggravated in setting of prostate bx. CT demonstrated enteritis and transverse colitis, seemingly a sequelae of sepsis rather than source. Resolving nausea and vomiting, no abdominal pain. Lactic acidosis 3.7. Hematuria once leon
placed. ECG demonstrated sinus tachycardia with r axis.
Admitted to IMU. Continue broad spectrum abx cefepime and vancomycin adding flagyl for anaerobes. IVF 150ml/hr s/p 2L bolus in ED. ID consulted. Urology following. Follow enteritis. No abdominal pain. Trial clears, monitor for nausea. BC, Urine
cultures. Flu, covid negative. Keep leon in for retention and concerns of inflammation.
ID changed abx to meropenem due to suspicion of ESBL in setting of transrectal prostate bx and likely source.
Urosepsis progressed to severe sepsis, necessitating levophed for MAP<65 overnight. Pt experienced bladder/urethral spasm sensation. Nursing gave PRN Valium for spasming that precipitated episode of wheezing, nausea, hypertension, tachypnea resolved
with racemic epinephrine, benadryl, pepcid, zofran. Symptoms resolved.
Next day, pt labs demonstrated evidence of septic shock with elevated LFTS to AST 240, ALT 183, lactic acid 2.5, WBC 16.7. BC and UC positive for E Coli. Continued fluids and abx. CXR demonstrates bibasilar atelectasis.
Today, pt still feels ill but improving with resolved nausea, SOB. Afebrile. CXR demonstrated bibasilar atelectasis with correlation on exam, not concerned for pneumonia currently. WBC 16.7. Lactate trending down, most recent 2.5. LFTs elevated AST
250 AST 183. Stooling appropriately. [place], blood tinged urine, less red than yesterday. BC and UC positive for E coli. Second BC drawn.
�Pt reports feeling improved complaining of leon discomfort. LFTs normalizing, leukocytosis improving, urine less blood tinged. Second BC after 24hrs abx NGTD. Lactate 1.7, VBG normalized after BiPAP overnight. Now saturating well on room air.
Troponin mildly elevated 0.042 in setting of septic shock. pro-BNP 1530.
Leon replaced due to retention overnight. New facial vesicles, slight pain. Mild uptick in leukocytosis, possibly in setting of replaced leon aggrevation.
AFVSS, improving leukocytosis. Pt complains of scrotal swelling. CXR and BNP WNL, indicative of no HF. Changed meropenem to ertapenum.
Leon was removed, passed void trial.
Scrotal swelling resolved with movement and ambulation. Pt symptoms resolved. Pt recommended outpt PT and IV abx with VN.
Discharge Plan
-
Patient Disposition: Home with Home Care
Discharge Diagnosis/Procedures: Sepsis with circulatory shock secondary to acute proctitis
Multidrug resistant organism with ESBL species
Herpes labialis
Condition: Good
Diet: As tolerated
Activity: As tolerated
Additional Activity: Use walker until PT f/u
Driving Restrictions: As prior to admission
Bathing Restrictions: keep midline dry
Blood Work: CMP, CBC on 05/30/2025
Other Services: VN
Instructions: Bacterial prostatitis
Referrals:
Tank Mascorro MD [Active, Urology] - in one week
Andre Washburn MD [Active, Internal Medicine]
UNKNOWN - PT DOES,NOT KNOW [Family Provider]
Mary Banegas MD [Active, Infectious Diseases] - As needed
Additional Discharge Medication Instructions: Continue acyclovir cream 5 times daily for 3 more days
Continue valacyclovir twice daily for 3 more days
Continue ertapenem through the end of 06/03/2025
Prescriptions:
New
acyclovir 5 % Ointment
1 applic topical 5/D Qty: 5 0RF
Ertapenem [Invanz] 1000 MG
0.9% Sodium Chloride [Nss] 50 ML
120 mls/hr IV Q24H
Ordered By: Shane Palumbo DO
Last Taken: 05/25/25 12:00 60 mls
albuterol sulfate [Ventolin HFA] 90 mcg/actuation HFA aerosol inhaler
2 puff inhalation Q6H PRN (Reason: shortness breath) Qty: 6.7 0RF
valacyclovir 500 mg Tablet
500 mg PO BID 3 Days Qty: 6 0RF
Continued
tamsulosin [Flomax] 0.4 mg capsule
0.4 mg PO DAILY Qty: 30 0RF
Discontinued
levofloxacin 750 mg tablet
750 mg PO DAILY Qty: 5 0RF
Discharge Orders:
Discharge Patient (As Directed); Ordered 05/25/25
Ordered By: Ana Botello
Discharge Date and Time
Discharge Date/Time: 05/25/25 15:02
Print Language: ARMENIAN
--- NOTE | 2025-05-20 13:49 | PTCARENOTE ---
Received this am, he is AAOx3 skin is hot and dry- temp 98 noted. Multi layered blankets removed- and CHG bathed, leon care done. IVF infusing - site slightly puffy- exchanged to other arm IV site. VAT notified. ST on tele 118, BP 80s-90s/60s,
MAPs >65. Abd distended +BS, freq asking for bedpan - only having smears of stool. Leon with ramin/yellow urine. VS and labs noted and requested provider to eval.
Currently lactic acid now 1.7. Anxious, will not rest or close his eyes. Fast speech and legs shaking. SCDs placed. NPO status maintained for US ABD. ( Not happy about) Provided small sips of water. IVF / IV antibx as ordered. Flomax po
given this am. Urine output 1000ml in 6 hrs.
[2025-05-20] MEDS: LOVENOX 40 MG SC (17:40)
--- NOTE | 2025-05-20 18:22 | PTCARENOTE ---
VS improving slowly through the day- Lactic acid now normal. Dyspneac with little exertion. Forced wheeze at times. However LCTA, RR 20s-30 pox 94 RAIR, 96% on 2L NC> Able to eat some yogurt and peaches for dinner tonight. Got up to [facility]- small
amt loose stool sent for culture. ++Flatus. Regalado small amt blood noted from meatus. Removed stat lock - pulling when he got up- will place leg strap. Otherwise urine output adequate. IVF / antibx as ordered.
[2025-05-20] MEDS: DUONEB 3 ML INH (19:56)
--- NOTE | 2025-05-20 20:01 | W.PN.UPDATE ---
Update Note
Progress Note Update
Patient is complaining of SOB, SPO2 in 90s on 2 L of O2, afebrile, denies chest pain.
-cbc, bmp, mag, pro BNP, vbg, trop, chest x-ray, Duo nebs ordered.
-Expiratory wheezing noted on lung exam.
-Patient still with difficult breathing after the nebs. One time dose of Decadron ordered but the patient refused. Chest x-ray and lab still pending at this time. Will give one time dose of IV lasix and holding IVF for now.
Troponin 0.044 will trend and EKG ordered
VbG result Noted (ph 7.31, pco2 56, po2 43, hco3 28.2) --->Bipap ordered and repeat vbg in am.
-Pro BNP 1530
-Blood culture still pending, Covid and flu neg on admission.
[2025-05-20 20:33] LABS: Venous Blood Gas B.E. 0.9 mmol/L (-4 to +4); Venous Blood Gas O2 Sat % 75.1 %
[2025-05-20 20:41] LABS: Hematocrit 37.1 % (39.0-52.0); Hemoglobin 12.2 g/dL (13.0-18.0); Mean Corp Hgb Conc. 32.9 g/dL (33.0-37.0); Mean Corpuscular Volume 83.6 fL (80.0-94.0); Red Cell Dist. Width 13.2 % (11.5-14.5)
[2025-05-20 20:52] LABS: Platelet Count 87 10^3/uL (130-400)
[2025-05-20 20:59] LABS: Blood Urea Nitrogen 20 mg/dl (9-20); Calcium 8.0 mg/dl (8.4-10.2); Carbon Dioxide 27 mmol/L (22-30); Chloride 103 mmol/L (98-107); Estimated Creatinine Clearance 58 ml/min; Glucose 111 mg/dl (70-99); Magnesium 1.7 mg/dl (1.6-2.3); Potassium 4.3 mmol/L (3.5-5.1); Sodium 135 mmol/L (135-145); eGFR > 60.00
[2025-05-20 21:15] LABS: Troponin I 0.044 ng/ml
[2025-05-20] MEDS: LIDOCAINE URO-JET 2% 1 SYRINGE TOPICAL (21:38)
[2025-05-20] MEDS: LASIX 20 MG IV (21:39)
[2025-05-21] VITALS (21 sets, daily range): BP systolic 94–133; BP diastolic 56–96; BMI 26.2
--- NOTE | 2025-05-21 00:03 | PTCARENOTE ---
Assumed care of Pt from day RN. Pt appearing to be having difficulty catching breath. Pt stating it is 'hard to keep up'. Pt spo2 94% on 2L nc, RR34. pt B/L lung sounds through out rhonchi with expiratory wheeze SERVER made aware, orders placed for
labs, CXR and breathing treatment. SERVER to bed side. Pt labs resulting, SERVER made aware. EKG ordered, IVF D/C Lasix given and BiPAP ordered. Pt refusing Decadron, SERVER made aware. Pt repeatedly out in [place] searching for RN, education given on ringing
call tinoco if in need of assistance. Pt informed RN that Pt spo2 was dropping from 94% on BiPAP to 89% at times. RN to room to check, Pt appears to be sleeping respiration even unlabored, BIPAP and connections, RT TT. Before RT to floor
coming out of Pt room and precedes to look in other Pt rooms for RT. RN giving education why looking around in rooms is not appropriate and takes other Pt privacy away. Pt understanding, still concerned for Pt spo2 going from 89%-93%. RT
arriving and assessing Pt, at this time Pt BiPAP oxygen popping off. RT fixing connection, Pt spo2 94%. Pt remaining asleep respirations even un labored.
[2025-05-21] MEDS: DILAUDID 0.5 MG IV (03:25)
[2025-05-21 03:30] LABS: Venous Blood Gas B.E. 1.5 mmol/L (-4 to +4); Venous Blood Gas O2 Sat % 86.3 %
[2025-05-21 03:38] LABS: Hematocrit 36.7 % (39.0-52.0); Hemoglobin 12.1 g/dL (13.0-18.0); Mean Corp Hgb Conc. 33.0 g/dL (33.0-37.0); Mean Corpuscular Volume 84.2 fL (80.0-94.0); Platelet Count 89 10^3/uL (130-400); Red Cell Dist. Width 13.2 % (11.5-14.5)
--- NOTE | 2025-05-21 03:39 | PTCARENOTE ---
Pt requesting to take off his BiPAP at 0230. Pt currently on 2Lnc, spo2 93% respirations even unlabored at this time. Pt NPO since midnight for US in morning.
[2025-05-21 03:46] LABS: Blood Urea Nitrogen 19 mg/dl (9-20); Calcium 8.2 mg/dl (8.4-10.2); Carbon Dioxide 28 mmol/L (22-30); Chloride 102 mmol/L (98-107); Estimated Creatinine Clearance 58 ml/min; Glucose 105 mg/dl (70-99); Magnesium 1.7 mg/dl (1.6-2.3); Potassium 3.7 mmol/L (3.5-5.1); Sodium 136 mmol/L (135-145); eGFR > 60.00
[2025-05-21 03:58] LABS: Troponin I 0.042 ng/ml
[2025-05-21 05:30] LABS: ALT (SGPT) 124 U/L (0-50); AST (SGOT) 99 U/L (17-59); Albumin 3.2 g/dl (3.5-5.0); Alkaline Phosphatase 75 U/L (38-126); Total Protein 5.6 g/dl (6.3-8.2)
[2025-05-21] MEDS: MERREM 500 MG IV ×4 (05:33→23:49)
[2025-05-21] MEDS: STERILE WATER FOR INJECTION 10 ML IV ×4 (05:33→23:49)
[2025-05-21] MEDS: PROTONIX IV 40 MG IV (08:11)
[2025-05-21] MEDS: NSS (PRESERVATIVE FREE) 10 ML IV (08:11)
--- NOTE | 2025-05-21 09:10 | W.PN.URO.CBU ---
Today's Communication / Plan
-
remove leon but if cannot vod or pvr over 400 renioset leon no cic 16 fr 5 cc balloon
Assessment / Plan
-
urosepsis for transrecta bx prostae no physical eveidence of transverse colitis continue iv abs m leon ouit voiding trial today
Diagnosis
-
Date of Service: May 21, 2025
-
Patient Diagnosis:
Post Op Day:
Patient Diagnosis:
Post Op Day:
Patient Diagnosis:sepsis s/p transrectal prostae bxs despite cefdir and tobramycin
Subjective
-
hated leon
Objective
-
Vital Signs
Temp Pulse Resp BP Pulse Ox
98.5 F 103 23 100/70 94
05/21/25 07:17 05/21/25 05:00 05/21/25 05:00 05/21/25 05:00 05/21/25 05:00
Intake and Output
05/20/25 05/21/25 05/22/25
06:59 06:59 06:59
Intake Total 1800 / 1800 2880 / 2880
Output Total 1900 / 1900 3700 / 3700
Balance -100 / -100 -820 / -820
Intake:
Oral fluids 1080 / 1080
IV fluids (Total) 1800 / 1800 1800 / 1800
Output:
Urine, Leon 1900 / 1900 3700 / 3700
Laboratory Results
05/21/25 03:04
05/21/25 03:04
Review of Systems
-
Constitutional: Weight Loss, Fatigue and Night Sweats
Respiratory: Trouble Breathing
: Difficulty Voiding
Physical Exam
-
General - well developed, well nourished, no acute distress
Chest - clear bilaterally
Abdomen - soft, non-tender, positive bowel sounds, no CVAT, no incisional pain or distention
Genitalia - normal
Rectal - normal
Skin - warm & dry with no rash
Neuro - AOx3, no motor deficits
Extremities - no clubbing, no cyanosis, no edema
Incision - clean, dry
Dressing - clean, dry, intact
Counseling
-
void trial
Care Review
Data Reviewed
Discussed with: Nursing and Family
--- NOTE | 2025-05-21 09:25 | W.PN.HOSP.TC ---
Addendum entered and electronically signed by Shane Palumbo DO 05/22/25 11:37:
CDI: acute prostatitis
Original Note:
Today's Communication/Plan
-
Plan reviewed with attending
continue abx
bowel regimen
d/c leon
prn duonebs
Assessment / Plan
Assessment / Plan
IMPRESSION:
64yoM PMH urinary retention 3 years ago with recent prostate bx yesterday presenting with signs of sepsis.
Admitted for Tmax 104.1, tachycardic 130, and leukopenic WBC 1.7, normotensive 139/76. Pt received prophylactic cefdinir before and after prostate bx procedure, reports adherence. Pt has hx of urinary retention and fever treated outpt with PO abx 3
years ago. Discussion with urology, surmising likely acute on chronic prostatitis aggravated in setting of prostate bx. CT demonstrated enteritis and transverse colitis, seemingly a sequelae of sepsis rather than source. Resolving nausea and
vomiting, no abdominal pain. Lactic acidosis 3.7. Hematuria once leon placed. ECG demonstrated sinus tachycardia with r axis.
Overnight, pt BP dropped. Fluid bolus given. Levophed started for MAP<65. Pt was complaining of bladder spasms and received dose valium to relieve symptoms with acute onset of wheezing, diaphoresis, hypertension ameliorated with bendryl, pepcid,
racemic epi, zofran. After episode, pt BP stabilized.
Next day, pt improving with resolved nausea, SOB. Afebrile. CXR demonstrated bibasilar atelectasis with correlation on exam, not concerned for pneumonia currently. WBC 16.7. Lactate trending down, most recent 2.5. LFTs elevated AST 250 AST 183.
Stooling appropriately. [place], blood tinged urine, less red than yesterday. BC and UC positive for E coli. Second BC drawn.
Today, pt reports feeling improved complaining of leon discomfort. LFTs normalizing, leukocytosis improving, urine less blood tinged. Second BC after 24hrs abx NGTD. Lactate 1.7, VBG normalized after BiPAP overnight. Now saturating well on room
air. Troponin mildly elevated 0.042 in setting of septic shock. pro-BNP 1530.
�
�
PLAN:
#septic shock
#metabolic lactic acidosis
#prostatitis
- Continue meropenem
- ID following, recommended meropenem with concern of ESBL.
- IVF 150ml/hr s/p 2L bolus in ED. LR bolus. PO intake appropriate. Low threshold to restart fluids.
- Urology following
- Follow enteritis, most likely in setting of sepsis. No abdominal pain. Trial clears, monitor for nausea.
- BC and UC positive for E coli. Awaiting sensitivities. Second BC NGTD.
- Flu, covid negative
- Remove leon per urology recommendations
#urinary retention
#bladder/urethral spasms
#constipation
- Leon in place. Plan to remove today
- Urology following: Recommend against antispasmodics with risk of further retention. Recommended valium, although on hold due to the reaction overnight. No suppositories with prostatitis
- I+O: -1080
- Bowel regimen ordered
#transaminitis
- in setting of septic shock, possible end organ damage- improving
- RUQ abdominal US- diffuse steatosis, moderate CBD dilation, moderate GB thickening and submucosal edema, no evidence of cholelithiasis
#wheezing
- PRN duonebs
�
DVT prophylaxis: lovenox
Diet: low residue
Disposition: IMU
Anticipated Discharge: 24 - 48 hours
Subjective/Interval History
-
Date of Service: May 21, 2025
Pt reports feeling better today. He continues to complain of urethral discomfort from the leon. Tolerating diet appropriately. Denies nausea, vomiting, abdominal pain.
Objective Data
-
Labs:
Laboratory Results
05/21/25
03:04
WBC 13.7 H
Hgb 12.1 L
Hct 36.7 L
Plt Count 89 L
Sodium 136
Potassium 3.7
Chloride 102
Carbon Dioxide 28
BUN 19
Creatinine 1.3
Glucose 105 H
Calcium 8.2 L
Total Bilirubin 0.8
AST 99 H
ALT 124 H
Alkaline Phosphatase 75
Vital Signs:
Vital Signs
Temp Pulse Resp BP Pulse Ox
98.5 F 103 23 100/70 94
05/21/25 07:17 05/21/25 05:00 05/21/25 05:00 05/21/25 05:00 05/21/25 05:00
I&O
05/20/25 05/21/25 05/22/25
06:59 06:59 06:59
Intake Total 1800 / 1800 2880 / 2880
Output Total 1900 / 1900 3700 / 3700
Balance -100 / -100 -820 / -820
Physical Exam
-
General: Well Developed, Well Nourished and Comfortable; Negative Respiratory Distress
HEENT: Normocephalic, Atraumatic and Moist Mucous Membranes
Respiratory: Clear to Auscultation and Non Labored Respirations
Cardiac: Regular Rhythm and S1/S2
GI: Soft, Nontender and Distended (pt reports bloating, nontympanic)
Genito-urinary: Bloody Urine (pink lemonade tinged) and Leon
Musculoskeletal: No Edema
Skin: Warm and Dry
Neuro: AO x 3 and Nonfocal/Grossly Intact
Psych: Calm
[2025-05-21] MEDS: FLOMAX 0.4 MG PO (10:12)
--- NOTE | 2025-05-21 11:27 | W.PN.ID1 ---
Date of Service
Date of Service: May 21, 2025
Today's Communication
Continue meropenem.
Assessment / Plan
# MDR/ESBL-E. coli bacteremia(3 sets) post transrectal prostate biopsy (05/18/25)
# Fever - trending down
# Leukocytosis trending down
# s/p severe sepsis
- Repeat blood cx's x 2
-Ucx E. coli
- Continue meropenem 500mg IV q6h (d2)
- Voiding trial today, per Urology
- Trend temps, wbc
-Contact isolation
Chief Complaint
-: Fever, Leukocytosis, UTI and Bacteremia
Subjective / Review of Systems
C/o SOB with activity. c/o leon discomfort.
Vital Signs / Physical Exam
Vital Signs
Vital Signs
Temp Pulse Resp BP Pulse Ox
98.5 F 103 23 100/70 94
05/21/25 07:17 05/21/25 05:00 05/21/25 05:00 05/21/25 05:00 05/21/25 05:00
Physical Exam
Constitutional: Comfortable
Eyes: No Conjunctival Hemorrhage and Sclera Anicteric
Cardiovascular: S1/S2 (tachycardic)
Pulmonary: Clear
Gastrointestinal: Soft, Non Tender and Distended (mild)
Genito-Urinary: Leon and Hematuria (light)
Extremities: Negative Edema
Neurological: AO x 3
Objective Data
Lab Data
Lab Results
05/21/25 03:04
05/21/25 03:04
Estimated Creat Clear 58 ml/min 05/21/25 03:04
Lactic Acid 1.7 mmol/L (0.7-2.0) 05/20/25 12:59
Total Bilirubin 0.8 mg/dl (0.2-1.3) 05/21/25 03:04
AST 99 U/L (17-59) H 05/21/25 03:04
ALT 124 U/L (0-50) H 05/21/25 03:04
Alkaline Phosphatase 75 U/L (38-126) 05/21/25 03:04
Most recent labs reviewed.
Micro Results:
05/19/25 10:48 Urine Culture - Final
Urine Escherichia coli - ESBL
05/19/25 10:57 Blood Culture - Preliminary
Blood/Venous Escherichia coli - ESBL
Gram Stain - Final
05/19/25 10:57 Blood Culture - Preliminary
Blood/Venous Escherichia coli - ESBL
Gram Stain - Final
05/20/25 03:56 Blood Culture - Preliminary
Blood/Venous Positive culture in progress
Gram Stain - Preliminary
05/21/25 03:04 Blood Culture - Pending
Blood/Venous
05/20/25 18:06 Salmonella/Shigella Culture - Pending
Feces/Stool Campylobacter Culture - Pending
Shiga Toxin Test - Pending
05/19/25 11:57 Influenza Types A & B (DESTINI) - Final
Nasal Swab Negative for Influenza A & B, NAAT
Negative results must be combined with clinical observations
and patient history.
Nucleic Acid Amplification test (NAAT)performed on the
[employer] platform.
05/19/25 CT a/p: Possible mild colitis of the transverse colon versus findings due to limited distention. Limited evaluation without oral contrast. Moderate prostate hypertrophy.No evidence of abscess formation.
Care Review
Plan reviewed with: Nurse
--- NOTE | 2025-05-21 11:34 | PTCARENOTE ---
Assumed care of patient at beginning of this shift from previous RN. Patient NPO initially for US abdomen; was able to eat breakfast on return. Dr Mascorro in to see patient and ordered leon catheter to be removed; catheter removed at 10:30. Order
states if unable to void to replace leon catheter, not intermittent; d/t void at 16:30. Patient and updated.
[2025-05-21] MEDS: MIRALAX 17 GRAMS PO (14:10)
--- NOTE | 2025-05-21 16:01 | CM ---
Following up on Patient. Overnight had an episode of dyspnea with bronchospasm. Was placed onto BiPAP which he did not like and took off eventually. Medical notes stated that he will continue Abx and PRN nebs so will follow to see what his
discharge needs will be.
PLAN: Home vs. Home w/ equipment
[2025-05-21] MEDS: DUONEB 3 ML INH (16:05)
--- NOTE | 2025-05-21 17:23 | PTCARENOTE ---
Patient has not voided as of yet. Bladder scan 245ml. Patient asking to have a catheter inserted and requests a size 22. [address] Mascorro called him and said to put it in. TT sent to Dr Mascorro to inform him of all of this. He did respond but
unable to understand the text. Another TT sent to him asking to read what was sent and resend instructions.
[2025-05-21] MEDS: LOVENOX 40 MG SC (17:32)
--- NOTE | 2025-05-21 18:10 | PTCARENOTE ---
Dr Mascorro responded that patient can have 20 or 24 but hopefully won't need any anyway. He then stated he was off call and to follow with dr Alcantara if needed.
Patient then stated he did not say he wanted a 22 and was fine with the 16. He had previously told another RN that Dr Mascorro had called him and said to place the catheter. Patient later stated that he did not say that, he said he meant that "José Miguel"Ludwin called his . Patient's was sitting in the room but did not confirm that Dr Mascorro had called her.
Due to confusion and needing to clarify, this nurse sent TT to Dr Alcantara who responded that Dr Mascorro signed out to him that a smaller catheter would be fine so the 16 fr is good.
Patient and both updated that order will be followed as entered in computer by Dr Mascorro and that this was verified with current physician brazer induction, Dr Alcantara.
Patient and both assured that repeat bladder scans will be done if patient does not void.
--- NOTE | 2025-05-21 22:44 | RESPNOTE ---
At around 2200 Pt spoke with RN and has refused the BiPAP at this time. Pt stated that they did not feel like they needed it. Pt is currently asleep. RN will notify me if the pt should need/ want the BiPAP.
[2025-05-22] VITALS (18 sets, daily range): BP systolic 99–125; BP diastolic 58–79; BMI 25.6
--- NOTE | 2025-05-22 00:55 | PTCARENOTE ---
Pt continues to have difficulty voiding. Pt void 15ml, bladder scanned resulting with 495. Pt agreeable to replace Regalado. Per order 16F Regalado placed with out issue, Pt appearing to tolerate well initial out put 550ml. Pt stating he felt 'relief'
after Regalado was placed. Pt AAOx3 but forgetful. Per Pt his received phone call from Dr. Mascorro saying his biopsy was negative for cancer. When reentering room about half hour later Pt again informed this RN of negative cancer results. Pt
continues on 2l nc spo2 95% respirations even unlabored. BiPAP offered at HS along with suggesting BiPAP be worn, Pt refusing at this time. Call tinoco within reach. bed in lowest position.
[2025-05-22] MEDS: DUONEB 3 ML INH (03:53)
[2025-05-22 05:13] LABS: Hematocrit 34.4 % (39.0-52.0); Hemoglobin 11.4 g/dL (13.0-18.0); Mean Corp Hgb Conc. 33.1 g/dL (33.0-37.0); Mean Corpuscular Volume 84.1 fL (80.0-94.0); Platelet Count 72 10^3/uL (130-400); Red Cell Dist. Width 13.0 % (11.5-14.5)
[2025-05-22 05:17] LABS: ALT (SGPT) 84 U/L (0-50); AST (SGOT) 51 U/L (17-59); Albumin 3.0 g/dl (3.5-5.0); Alkaline Phosphatase 109 U/L (38-126); Blood Urea Nitrogen 17 mg/dl (9-20); Calcium 8.2 mg/dl (8.4-10.2); Carbon Dioxide 31 mmol/L (22-30); Chloride 100 mmol/L (98-107); Estimated Creatinine Clearance 69 ml/min; Glucose 122 mg/dl (70-99); Potassium 3.8 mmol/L (3.5-5.1); Sodium 135 mmol/L (135-145); Total Protein 5.2 g/dl (6.3-8.2); eGFR > 60.00
[2025-05-22] MEDS: STERILE WATER FOR INJECTION 10 ML IV ×4 (05:43→23:10)
[2025-05-22] MEDS: MERREM 500 MG IV ×4 (05:43→23:10)
--- NOTE | 2025-05-22 07:40 | W.PN.HOSP.TC ---
Addendum entered and electronically signed by Shane Palumbo DO 05/23/25 12:41:
#CDI: NIMI
Original Note:
Today's Communication/Plan
-
Plan reviewed with attending
Continue meropenem per ID
Replaced leon. Removal per urology
Valtrex
continue bowel regimen
Assessment / Plan
Assessment / Plan
IMPRESSION:
64yoM PMH urinary retention 3 years ago with recent prostate bx yesterday presenting with signs of sepsis.
Admitted for Tmax 104.1, tachycardic 130, and leukopenic WBC 1.7, normotensive 139/76. Pt received prophylactic cefdinir before and after prostate bx procedure, reports adherence. Pt has hx of urinary retention and fever treated outpt with PO abx 3
years ago. Discussion with urology, surmising likely acute on chronic prostatitis aggravated in setting of prostate bx. CT demonstrated enteritis and transverse colitis, seemingly a sequelae of sepsis rather than source. Resolving nausea and
vomiting, no abdominal pain. Lactic acidosis 3.7. Hematuria once leon placed. ECG demonstrated sinus tachycardia with r axis.
Overnight, pt BP dropped. Fluid bolus given. Levophed started for MAP<65. Pt was complaining of bladder spasms and received dose valium to relieve symptoms with acute onset of wheezing, diaphoresis, hypertension ameliorated with bendryl, pepcid,
racemic epi, zofran. After episode, pt BP stabilized.
Next day, pt improving with resolved nausea, SOB. Afebrile. CXR demonstrated bibasilar atelectasis with correlation on exam, not concerned for pneumonia currently. WBC 16.7. Lactate trending down, most recent 2.5. LFTs elevated AST 250 AST 183.
Stooling appropriately. [place], blood tinged urine, less red than yesterday. BC and UC positive for E coli.
Today, pt reports feeling improved complaining of leon discomfort. LFTs normalizing, leukocytosis improving, urine less blood tinged. Second BC after 24hrs abx NGTD. Lactate 1.7, VBG normalized after BiPAP overnight. Now saturating well on room
air. Troponin mildly elevated 0.042 in setting of septic shock. pro-BNP 1530.
Leon replaced due to retention overnight. New facial vesicles, slight pain. AFVSS. Mild uptick in leukocytosis, possibly in setting of replaced leon aggrevation.
�
�
PLAN:
#septic shock
#metabolic lactic acidosis
#prostatitis- unclear acute on chronic (hx infxn 3 yrs ago)
- Continue meropenem
- ID following, recommended meropenem with concern of ESBL.
- IVF 150ml/hr s/p 2L bolus in ED. LR bolus. PO intake appropriate. Low threshold to restart fluids.
- Urology following
- Follow enteritis, most likely in setting of sepsis. No abdominal pain. Normal diet toelrated well.
- BC and UC positive for E coli. Awaiting sensitivities. Second BC positive, drawn only after 2 doses meropenem. 3rd BC NGTD.
- Flu, covid negative
- Leon replaced due to retention overnight. Removal pending urology recs
#urinary retention
#bladder/urethral spasms
#constipation
- Leon in place. Plan to remove today
- Urology following: Recommend against antispasmodics with risk of further retention. Recommended valium, although d/c due to the reaction. No suppositories with prostatitis
- Bowel regimen ordered. BM overnight. Senna added to regimen to attempt to help retention issues
#transaminitis
- in setting of septic shock, possible end organ damage- improving. no abd pain
- RUQ abdominal US- diffuse steatosis, moderate CBD dilation, moderate GB thickening and submucosal edema, no evidence of cholelithiasis
- F/u outpt for steatosis
#wheezing
- PRN duonebs
#facial vesicles
- Concern HSV flare. Start on valtrex
�
DVT prophylaxis: lovenox
Diet: low residue
Disposition: downgrade today
Anticipated Discharge: 24 - 48 hours
Subjective/Interval History
-
Date of Service: May 22, 2025
Pt reports feeling better today. He had a bout of urinary retention overnight and had leon replaced. He reports more comfort with smaller gauge. Multiple BM overnight. reports bothersome perioral vesicles, never before had.
Pt refused bipap overnight due to discomfort. Nursing reports snoring and MARCELLE-like choking noises.
Objective Data
-
Labs:
Laboratory Results
05/22/25
04:13
WBC 15.8 H
Hgb 11.4 L
Hct 34.4 L
Plt Count 72 L
Sodium 135
Potassium 3.8
Chloride 100
Carbon Dioxide 31 H
BUN 17
Creatinine 1.1
Glucose 122 H
Calcium 8.2 L
Total Bilirubin 0.6
AST 51
ALT 84 H
Alkaline Phosphatase 109
Vital Signs:
Vital Signs
Temp Pulse Resp BP Pulse Ox
98.1 F 98 23 109/66 97
05/22/25 03:57 05/22/25 07:00 05/22/25 07:00 05/22/25 07:00 05/22/25 07:00
I&O
05/21/25 05/22/25 05/23/25
06:59 06:59 06:59
Intake Total 2880 / 2880 480 / 480
Output Total 3700 / 3700 1360 / 1360
Balance -820 / -820 -880 / -880
Physical Exam
-
General: Well Developed, Well Nourished, No Apparent Distress and Comfortable
HEENT: Normocephalic, Atraumatic and Moist Mucous Membranes
Respiratory: Clear to Auscultation and Non Labored Respirations
Cardiac: Regular Rhythm and S1/S2
GI: Soft, Nontender and Distended (improving, nontympanic)
Genito-urinary: Leon (pink lemonade)
Musculoskeletal: No Edema
Skin: Warm, Dry and Rash (perioral vesicles)
Neuro: AO x 3, No Motor Deficits and Nonfocal/Grossly Intact
Psych: Calm
[2025-05-22] MEDS: FLOMAX 0.4 MG PO (09:06)
[2025-05-22] MEDS: PROTONIX 40 MG PO (09:06)
--- NOTE | 2025-05-22 09:57 | W.PN.ID1 ---
Date of Service
Date of Service: May 22, 2025
Today's Communication
See below.
Assessment / Plan
# MDR/ESBL-E. coli bacteremia(3 sets) post transrectal prostate biopsy (05/18/25)
# Fever - resolved
# Leukocytosis trending down
# s/p severe sepsis
# Failed voiding trial - leon in place
- Repeat blood cx's x neg to date.
-Ucx ESBL-E. coli - NO po abx option
- Continue meropenem 500mg IV q6h (d3)
- Tomorrow transition to Ertapenem 1g IV q24hr through 06/03/25.
Infusion sheet submitted to protective services case worker.
Patient considering going to Outpatient Infusion Dept over home IV abx.
He will let us know decision
- Place midline tomorrow if repeat blood cx's remain negative.
- Trend wbc
-Contact isolation
# HSV labialis
- Prescribed Valacyclovir 1g po q12 x 2 doses
- Apply topical acyclovir 5% five times/d.
Chief Complaint
-: Fever, Leukocytosis, UTI and Bacteremia
Subjective / Review of Systems
Failed voiding trial. Still with SOB with activity.
Vital Signs / Physical Exam
Vital Signs
Vital Signs
Temp Pulse Resp BP Pulse Ox
98.1 F 98 23 109/66 97
05/22/25 07:05 05/22/25 07:00 05/22/25 07:00 05/22/25 07:00 05/22/25 07:00
Physical Exam
Constitutional: Comfortable
Eyes: Sclera Anicteric
Oropharyngeal: Other (vesicular lesions Right upper and lower lip, left angle of the mouth)
Cardiovascular: Regular Rate
Pulmonary: Clear
Gastrointestinal: Soft, Non Tender and Non Distended
Extremities: Negative Edema
Neurological: AO x 3
Objective Data
Lab Data
Lab Results
05/22/25 04:13
05/22/25 04:13
Estimated Creat Clear 69 ml/min 05/22/25 04:13
Lactic Acid 1.7 mmol/L (0.7-2.0) 05/20/25 12:59
Total Bilirubin 0.6 mg/dl (0.2-1.3) 05/22/25 04:13
AST 51 U/L (17-59) 05/22/25 04:13
ALT 84 U/L (0-50) H 05/22/25 04:13
Alkaline Phosphatase 109 U/L (38-126) 05/22/25 04:13
Most recent labs reviewed.
Micro Results:
05/19/25 10:57 Blood Culture - Final
Blood/Venous Escherichia coli - ESBL
Gram Stain - Final
05/19/25 10:57 Blood Culture - Final
Blood/Venous Escherichia coli - ESBL
Gram Stain - Final
05/20/25 03:56 Blood Culture - Preliminary
Blood/Venous Escherichia coli - ESBL
Gram Stain - Preliminary
05/21/25 03:04 Blood Culture - Preliminary
Blood/Venous No Growth in 24 hours- Final report to follow
05/21/25 12:47 Blood Culture - Pending
Blood/Venous
05/19/25 10:48 Urine Culture - Final
Urine Escherichia coli - ESBL
05/20/25 18:06 Salmonella/Shigella Culture - Pending
Feces/Stool Campylobacter Culture - Pending
Shiga Toxin Test - Pending
05/19/25 11:57 Influenza Types A & B (DESTINI) - Final
Nasal Swab Negative for Influenza A & B, NAAT
Negative results must be combined with clinical observations
and patient history.
Nucleic Acid Amplification test (NAAT)performed on the
[employer] platform.
05/19/25 CT a/p: Possible mild colitis of the transverse colon versus findings due to limited distention. Limited evaluation without oral contrast. Moderate prostate hypertrophy.No evidence of abscess formation.
Care Review
Plan reviewed with: Nurse and Other (Case management)
[2025-05-22] MEDS: ZOVIRAX OINTMENT 5% 1 APPLIC TOPICAL ×4 (10:57→21:32)
[2025-05-22] MEDS: SENNA SYRUP 8.8 MG PO (10:57)
[2025-05-22] MEDS: VALTREX 1000 MG PO ×2 (10:57→21:31)
--- NOTE | 2025-05-22 11:05 | PN.CDI ---
CDI
- -
CDI:
Physician Documentation Request
Admit Date: 05/19/25 14:20
Dear Doctor Ayan,
05/21 progress note states 'Septic shock secondary to ESBL E. coli bacteremia secondary to prostatitis'
Please clarify which of the following accurately represents the acuity of the prostatitis
____ Acute
Chronic
____ Other
Use of terms such as suspected, likely, concern for, or probable (associated with a specific diagnosis that is being evaluated, monitored, or treated as if it exists) are acceptable and can be coded in the inpatient setting, when documented at the
time of discharge.
Thank you,
Alyson Mathis RN, BSN
CDI Specialist
tiger text
Please use your independent medical judgment in providing your response.
--- NOTE | 2025-05-22 12:48 | W.PN.UPDATE ---
Addendum entered and electronically signed by Shane Palumbo DO 05/23/25 07:54:
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
Original Note:
Update Note
Progress Note Update
I have independently evaluated the patient at the bedside I reviewed the case with the resident and agree with all documentation unless otherwise specified
AFVSS without vasopressors. �Regalado catheter replaced yesterday for recurrent retention. �WBC with slight increase from yesterday
AO x 4, NAD. MMM. Benign cardiopulmonary exam, no wheezes or rhonchi. Benign abdomen. Regalado catheter in place with blood-tinged urine. Skin warm and dry. No edema, palpable pulses. No FND or tremor
#Septic shock secondary to ESBL E. coli bacteremia from acute prostatitis. Recent prostate biopsy, failed OP antibiotics. Status post short course of vasopressors here. CT without signs of abscess. Currently on IV meropenem through 06/03/2025 per ID
recommendation.� Plan for midline tomorrow if repeat blood cultures remain negative.� Continue to trend CBC and temperature curve
#Urine retention.� Secondary to prostatitis as above.� Regalado catheter in place with urology following.� Maintain Regalado catheter for now, defer to urology on timing of next trial of void
#Elevated LFTs, CBD dilation on ultrasound. Possibly passed stone versus physiologic CBD dilation and elevated LFTs from shock. LFTs currently downtrending, no symptoms. Will continue to monitor LFTs and abdomen exam.
#Dyspnea with bronchospasm and hypercapnia. Differentials include RAD versus asthma, less likely COPD. Has had occasional episodes of shortness of breath and wheezing here. CXR without acute findings. No former smoking history. C/W PRN
bronchodilators. Plan for OP PFTs with pulmonology.
Diet -- LRD
DVT prophylaxis -- SQ Lovenox
CODE STATUS -- Full
Disposition -- Discharge home in 24-48 hours
--- NOTE | 2025-05-22 13:39 | W.PN.URO.CBU ---
Today's Communication / Plan
-
keep leon for now
Assessment / Plan
-
urosepsis for transrecta bx prostate bx will keep leon and try another voiding trial in coming days pt improcved from sepsis
Diagnosis
-
Date of Service: May 22, 2025
-
Patient Diagnosis:
Post Op Day:
Patient Diagnosis:
Post Op Day:
Patient Diagnosis:
Post Op Day:
Patient Diagnosis:sepsis s/p transrectal prostate bxs despite cefdir and tobramycin ESBL SEPSI URINARY RETENTION
Subjective
-
could not void but dfeelin beter
Objective
-
Vital Signs
Temp Pulse Resp BP Pulse Ox
98.2 F 99 22 118/75 96
05/22/25 11:05 05/22/25 12:00 05/22/25 12:00 05/22/25 12:00 05/22/25 12:00
Intake and Output
05/21/25 05/22/25 05/23/25
06:59 06:59 06:59
Intake Total 2880 / 2880 480 / 480
Output Total 3700 / 3700 1360 / 1360
Balance -820 / -820 -880 / -880
Intake:
Oral fluids 1080 / 1080 480 / 480
IV fluids (Total) 1800 / 1800
Output:
Urine, Leon 3700 / 3700 1310 / 1310
Urine, Voided 50 / 50
Other:
Number of approximated SMALL 1
amounts of urine
Laboratory Results
05/22/25 04:13
05/22/25 04:13
Review of Systems
-
: Difficulty Voiding
Physical Exam
-
General - well developed, well nourished, no acute distress
Chest - clear bilaterally
Abdomen - soft, non-tender, positive bowel sounds, no CVAT, no incisional pain or distention
Genitalia - normal
Rectal - normal
Skin - warm & dry with no rash
Neuro - AOx3, no motor deficits
Extremities - no clubbing, no cyanosis, no edema
Incision - clean, dry
Dressing - clean, dry, intact
Counseling
-
keep leon for now
Care Review
Data Reviewed
Discussed with: Nursing and Family
--- NOTE | 2025-05-22 14:24 | PTCARENOTE ---
Assumed care of patient at beginning of this shift from previous RN. Regalado catheter draining ramin with pink tinged urine. Patient complained to Dr Palumbo that he feels pressure in his rectum as if he has to have a bm. Dr Palumbo informed patient that
he would order something more for his bowls; patient stated he was agreeable. Senna was ordered. When this RN went to give to patient, him and stated he did not need it. Reviewed with patient and that patient discussed with physician.
Patient then stated he did want to take senna. He has been OOB to chair and to commode with 1 person assistance.
Patient downgraded to med/surg; assigned to go to room 2135. Patient informed of transfer. He then stated he wanted to speak with the physician who ordered the transfer and expressed concerns that he receive the same care. Reassured patient that his
currently ordered plan of care would be followed. TT sent to Dr Palumbo to make him aware; resident up to speak with patient.
--- NOTE | 2025-05-22 15:59 | PTCARENOTE ---
Patient transferred to room 2135 with all belongings; report given to Lorie. Patient's aware of transfer; patient stated he notified her at time of transfer as well.
--- NOTE | 2025-05-22 17:19 | CM ---
Following up on Patient. Medical Attending/ Team sent script for Home IV antibiotics. LAZARO Gonsales met with the patient who was not sure what he wanted to do in terms of Outpatient vs. Home Infusion and asked many questions.
LAZARO Gonsales made multiple phone calls and had conversations to inquire the process for Outpatient Infusion and to obtain the answers to his questions. Outpatient is unlikely due to, he states, his weakness and logistically having to go into the
Outpatient office during the week and ER on the weekend.
For Home Infusion, patient was not agreeable at first due to basically, being scared to not administer it correctly by himself or by his because the seriousness of his infection and asked if Home alodize machine operator can provide care daily. When patient
was told this is not possible and only Rehab can do this daily, he then seemed more interested in Home Infusion.
Patient was just not sure so after some discussion, he agreed that Case Management can start the SNF process while PT/OT assesses him here and Case Management initiate the Home Infusion process, at least for the insurance verification.
SNF referrals were sent and waiting for patient access representative from [facility] to call back.
PLAN: Home Infusion vs. SNF
[2025-05-22] MEDS: LOVENOX 40 MG SC (17:45)
[2025-05-22] MEDS: DITROPAN 5 MG PO (17:46)
[2025-05-22] MEDS: DILAUDID 0.5 MG IV (23:09)
[2025-05-23] VITALS (7 sets, daily range): BP systolic 116–135; BP diastolic 70–85; PULSE 88; O2SAT 94
[2025-05-23] MEDS: STERILE WATER FOR INJECTION 10 ML IV (06:07)
[2025-05-23] MEDS: MERREM 500 MG IV (06:08)
--- NOTE | 2025-05-23 07:13 | W.PN.HOSP.TC ---
Addendum entered and electronically signed by Shane Palumbo DO 05/25/25 08:05:
CDI: Shock liver, resolved
Original Note:
Today's Communication/Plan
-
Plan reviewed with attending
Abx per ID
Midline placed upon d/c
Leon per urology
Assessment / Plan
Assessment / Plan
IMPRESSION:
64yoM PMH urinary retention 3 years ago with recent prostate bx yesterday presenting with signs of sepsis.
Admitted for Tmax 104.1, tachycardic 130, and leukopenic WBC 1.7, normotensive 139/76. Pt received prophylactic cefdinir before and after prostate bx procedure, reports adherence. Pt has hx of urinary retention and fever treated outpt with PO abx 3
years ago. Discussion with urology, surmising likely acute on chronic prostatitis aggravated in setting of prostate bx. CT demonstrated enteritis and transverse colitis, seemingly a sequelae of sepsis rather than source. Resolving nausea and
vomiting, no abdominal pain. Lactic acidosis 3.7. Hematuria once leon placed. ECG demonstrated sinus tachycardia with r axis.
Overnight, pt BP dropped. Fluid bolus given. Levophed started for MAP<65. Pt was complaining of bladder spasms and received dose valium to relieve symptoms with acute onset of wheezing, diaphoresis, hypertension ameliorated with bendryl, pepcid,
racemic epi, zofran. After episode, pt BP stabilized.
Next day, pt improving with resolved nausea, SOB. Afebrile. CXR demonstrated bibasilar atelectasis with correlation on exam, not concerned for pneumonia currently. WBC 16.7. Lactate trending down, most recent 2.5. LFTs elevated AST 250 AST 183.
Stooling appropriately. [place], blood tinged urine, less red than yesterday. BC and UC positive for E coli.
Pt reports feeling improved complaining of leon discomfort. LFTs normalizing, leukocytosis improving, urine less blood tinged. Second BC after 24hrs abx NGTD. Lactate 1.7, VBG normalized after BiPAP overnight. Now saturating well on room air.
Troponin mildly elevated 0.042 in setting of septic shock. pro-BNP 1530.
Leon replaced due to retention overnight. New facial vesicles, slight pain. Mild uptick in leukocytosis, possibly in setting of replaced leon aggrevation.
AFVSS, improving leukocytosis.
�
�
PLAN:
#septic shock
#metabolic lactic acidosis
#prostatitis- unclear acute on chronic (hx infxn 3 yrs ago)
- Continue meropenem
- ID following, recommended meropenem with concern of ESBL.
- IVF 150ml/hr s/p 2L bolus in ED. LR bolus. PO intake appropriate. Low threshold to restart fluids.
- Urology following
- Follow enteritis, most likely in setting of sepsis. No abdominal pain. Normal diet toelrated well.
- BC and UC positive for E coli. Second BC positive, drawn only after 2 doses meropenem. 3rd BC NGTD 48hrs. Can place midline
- Flu, covid negative
- Leon replaced due to retention overnight. Removal pending urology recs.
#urinary retention
#bladder/urethral spasms
#constipation
- Leon in place. Plan to remove today
- Urology following: Recommend against antispasmodics with risk of further retention. Recommended valium, although d/c due to the reaction. No suppositories with prostatitis
- Bowel regimen ordered. BM overnight. Senna added to regimen to attempt to help retention issues
- 1 dose oxybutynin for bladder spasms.
#transaminitis
- in setting of septic shock, possible end organ damage- improving. no abd pain
- RUQ abdominal US- diffuse steatosis, moderate CBD dilation, moderate GB thickening and submucosal edema, no evidence of cholelithiasis
- F/u outpt for steatosis
#wheezing
- PRN duonebs
#facial vesicles
- Concern HSV flare. Start on valtrex
#type II demand ischemia
- elevated troponins, trended down
#swollen scrotum
- pro-BNP, CXR to r/o HF
�
DVT prophylaxis: lovenox
Diet: low residue
Disposition: downgrade today
Anticipated Discharge: Within 24 hours
Subjective/Interval History
-
Date of Service: May 23, 2025
Pt reports feeling better. He reports scrotal swelling and heaviness but denies any additional abdominal pain, nausea, vomiting, fevers. He describes ALVAREZ but improvement. He continues to describe mild lateral thigh numbness, as we discussed
positional related to him laying in bed.
Objective Data
-
Labs:
Laboratory Results
05/23/25
07:05
WBC Pending
Hgb Pending
Hct Pending
Plt Count Pending
Vital Signs:
Vital Signs
Temp Pulse Resp BP Pulse Ox
99.2 F 99 16 102/58 96
05/22/25 23:37 05/22/25 23:37 05/22/25 23:37 05/22/25 23:37 05/22/25 23:37
I&O
05/22/25 05/23/25 05/24/25
06:59 06:59 06:59
Intake Total 480 / 480 1200 / 1200
Output Total 1360 / 1360 750 / 750
Balance -880 / -880 450 / 450
Physical Exam
-
General: Well Developed, Well Nourished, No Apparent Distress and Comfortable
HEENT: Normocephalic, Atraumatic and Moist Mucous Membranes
Respiratory: Clear to Auscultation and Crackles (bibasilar atelectasis stable from admission)
Cardiac: Regular Rhythm and S1/S2
GI: Soft, Nontender and Nondistended
Genito-urinary: Other (with machine paint mixer hog handler in room: no visible scrotal swelling, subjective swelling per pt)
Musculoskeletal: No Edema
Skin: Warm and Dry
Neuro: AO x 3, No Motor Deficits and Nonfocal/Grossly Intact
Psych: Calm
[2025-05-23 07:33] LABS: Hematocrit 35.2 % (39.0-52.0); Hemoglobin 11.7 g/dL (13.0-18.0); Mean Corp Hgb Conc. 33.2 g/dL (33.0-37.0); Mean Corpuscular Volume 80.7 fL (80.0-94.0); Platelet Count 78 10^3/uL (130-400); Red Cell Dist. Width 13.0 % (11.5-14.5)
[2025-05-23] MEDS: ZOVIRAX OINTMENT 5% 1 APPLIC TOPICAL ×5 (09:01→22:50)
[2025-05-23] MEDS: FLOMAX 0.4 MG PO (09:01)
[2025-05-23] MEDS: SENNA SYRUP 8.8 MG PO (09:01)
[2025-05-23] MEDS: PROTONIX 40 MG PO (09:01)
--- NOTE | 2025-05-23 09:24 | PN.CDI ---
CDI
- -
CDI:
Physician Documentation Request
Admit Date: 05/19/25 14:20
Dear Doctor Ayan,
Patient admitted with sepsis following biopsy procedure.
Troponin noted to be elevated. Progress note states 'in setting of septic shock'
Could you please provide a diagnosis that supports the above lab abnormalities and additional evaluation/monitoring:
Nonischemic myocardial injury
type II AK demand ischemia
Other
Use of terms such as suspected, likely, concern for, or probable (associated with a specific diagnosis that is being evaluated, monitored, or treated as if it exists) are acceptable and can be coded in the inpatient setting, when documented at the
time of discharge.
Thank you,
Alyson Mathis RN, BSN
CDI Specialist
tiger text
Please use your independent medical judgment in providing your response.
--- NOTE | 2025-05-23 09:51 | W.PN.ID1 ---
Date of Service
Date of Service: May 23, 2025
Today's Communication
Transition meropenem to Ertapenem 1g IV q24hr through 06/03/25.
Place midline when close to dc.
Assessment / Plan
# MDR/ESBL-E. coli bacteremia(3 sets) post transrectal prostate biopsy (05/18/25)
#Acute prostatitis
# Fever - resolved
# Leukocytosis- resolved
# Failed voiding trial - leon in place
# Scrotal edema
- Repeat blood cx's x neg to date.
-Ucx ESBL-E. coli - NO po abx option
- Transition meropenem to Ertapenem 1g IV q24hr through 06/03/25.
Follow weekly CBC, CMP while on abx
Infusion sheet submitted to outsole caser 05/22 and 05/23
- Place midline when close to discharge.
- PT/OT eval
- Scrotal elevation. Management as per Urology
# HSV labialis
- s/p Valacyclovir 1g po q12 x 2 doses
- Continue topical acyclovir 5% five times/d.
Chief Complaint
-: UTI and Bacteremia
Subjective / Review of Systems
c/o scrotal swelling without pain.
Vital Signs / Physical Exam
Vital Signs
Vital Signs
Temp Pulse Resp BP Pulse Ox
98.2 F 87 18 123/76 94
05/23/25 07:11 05/23/25 07:11 05/23/25 07:11 05/23/25 07:11 05/23/25 07:11
Physical Exam
Constitutional: No Acute Distress and Comfortable
Oropharyngeal: Other (Vesicular lesions on lips and left angle of mouth)
Cardiovascular: Regular Rate and S1/S2
Pulmonary: Clear
Gastrointestinal: Soft, Non Tender and Non Distended
Genito-Urinary: Leon, Clear Urine and Other (Scrotum moderate edema, no erythema, nontender); Negative CVA Tenderness
Extremities: Negative Edema
Neurological: AO x 3
Objective Data
Lab Data
Lab Results
05/23/25 07:05
05/22/25 04:13
Estimated Creat Clear 69 ml/min 05/22/25 04:13
Lactic Acid 1.7 mmol/L (0.7-2.0) 05/20/25 12:59
Total Bilirubin 0.6 mg/dl (0.2-1.3) 05/22/25 04:13
AST 51 U/L (17-59) 05/22/25 04:13
ALT 84 U/L (0-50) H 05/22/25 04:13
Alkaline Phosphatase 109 U/L (38-126) 05/22/25 04:13
Most recent labs reviewed.
Micro Results:
05/20/25 18:06 Salmonella/Shigella Culture - Final
Feces/Stool No Salmonella, Shigella, Aeromonas or Plesiomonas species
isolated.
Campylobacter Culture - Final
No Campylobacter species isolated.
Shiga Toxin Test - Pending
05/21/25 03:04 Blood Culture - Preliminary
Blood/Venous No Growth in 48 hours- Final report to follow
05/21/25 12:47 Blood Culture - Preliminary
Blood/Venous No Growth in 24 hours- Final report to follow
05/19/25 10:57 Blood Culture - Final
Blood/Venous Escherichia coli - ESBL
Gram Stain - Final
05/19/25 10:57 Blood Culture - Final
Blood/Venous Escherichia coli - ESBL
Gram Stain - Final
05/20/25 03:56 Blood Culture - Preliminary
Blood/Venous Escherichia coli - ESBL
Gram Stain - Preliminary
05/19/25 10:48 Urine Culture - Final
Urine Escherichia coli - ESBL
05/19/25 11:57 Influenza Types A & B (DESTINI) - Final
Nasal Swab Negative for Influenza A & B, NAAT
Negative results must be combined with clinical observations
and patient history.
Nucleic Acid Amplification test (NAAT)performed on the
[employer] platform.
05/19/25 CT a/p: Possible mild colitis of the transverse colon versus findings due to limited distention. Limited evaluation without oral contrast. Moderate prostate hypertrophy.No evidence of abscess formation.
Care Review
Plan reviewed with: Physician (Dr. Botello)
--- NOTE | 2025-05-23 11:36 | W.PN.URO.CBU ---
Today's Communication / Plan
-
once ambulatory jim do voiding trial
Assessment / Plan
-
urosepsis for transrecta bx prostate bx will keep leon and try another voiding trial in coming days pt improcved from sepsis
Diagnosis
-
Date of Service: May 23, 2025
-
Patient Diagnosis:
Post Op Day:
Patient Diagnosis:
Post Op Day:
Patient Diagnosis:
Post Op Day:
Patient Diagnosis:
Post Op Day:
Patient Diagnosis:sepsis s/p transrectal prostate bxs despite cefdir and tobramycin ESBL SEPSI URINARY RETENTION
Subjective
-
better but tired weak sob
Objective
-
Vital Signs
Temp Pulse Resp BP Pulse Ox
98.2 F 87 18 123/76 94
05/23/25 07:11 05/23/25 07:11 05/23/25 07:11 05/23/25 07:11 05/23/25 07:11
Intake and Output
05/22/25 05/23/25 05/24/25
06:59 06:59 06:59
Intake Total 480 / 480 1200 / 1200
Output Total 1360 / 1360 750 / 750
Balance -880 / -880 450 / 450
Intake:
Oral fluids 480 / 480 1200 / 1200
Output:
Urine, Leon 1310 / 1310 750 / 750
Urine, Voided 50 / 50
Other:
Number of approximated SMALL 1
amounts of urine
Laboratory Results
05/23/25 07:05
05/22/25 04:13
Review of Systems
-
Respiratory: Trouble Breathing
Physical Exam
-
General - well developed, well nourished, no acute distress
Chest - clear bilaterally
Abdomen - soft, non-tender, positive bowel sounds, no CVAT, no incisional pain or distention
Genitalia - normal
Rectal - normal
Skin - warm & dry with no rash
Neuro - AOx3, no motor deficits
Extremities - no clubbing, no cyanosis, no edema
Incision - clean, dry
Dressing - clean, dry, intact
Counseling
-
per hospitalist
[2025-05-23] MEDS: INVANZ 60 MG IV (12:46)
--- NOTE | 2025-05-23 16:28 | CM ---
Reviewed the chart notes and spoke with the patient at the bedside. Patient unsure of direction for discharge whether SNF or home with VN supports. Discussed infusion. Agreeable to abx rx and clinicals to be faxed to [facility] in the
likelihood that the patient would be discharged to home. PT today recommending home health. CM continues to be available to patient/family and is monitoring medical plan for needs at discharge.
Plan: Discharge plans will depend on the patient's progress.
[2025-05-23] MEDS: LOVENOX 40 MG SC (18:17)
[2025-05-23] MEDS: DITROPAN 5 MG PO (23:38)
[2025-05-24 03:28] VITALS: BP 135/81
--- NOTE | 2025-05-24 06:44 | W.PN.HOSP.TC ---
Today's Communication/Plan
-
plan reviewed with attending
leon out tomorrow
manage pain/spasms
continue abx per id
urology following
Assessment / Plan
Assessment / Plan
IMPRESSION:
64yoM PMH urinary retention 3 years ago with recent prostate bx yesterday presenting with signs of sepsis.
Admitted for Tmax 104.1, tachycardic 130, and leukopenic WBC 1.7, normotensive 139/76. Pt received prophylactic cefdinir before and after prostate bx procedure, reports adherence. Pt has hx of urinary retention and fever treated outpt with PO abx 3
years ago. Discussion with urology, surmising likely acute on chronic prostatitis aggravated in setting of prostate bx. CT demonstrated enteritis and transverse colitis, seemingly a sequelae of sepsis rather than source. Resolving nausea and
vomiting, no abdominal pain. Lactic acidosis 3.7. Hematuria once leon placed. ECG demonstrated sinus tachycardia with r axis.
Overnight, pt BP dropped. Fluid bolus given. Levophed started for MAP<65. Pt was complaining of bladder spasms and received dose valium to relieve symptoms with acute onset of wheezing, diaphoresis, hypertension ameliorated with bendryl, pepcid,
racemic epi, zofran. After episode, pt BP stabilized.
Next day, pt improving with resolved nausea, SOB. Afebrile. CXR demonstrated bibasilar atelectasis with correlation on exam, not concerned for pneumonia currently. WBC 16.7. Lactate trending down, most recent 2.5. LFTs elevated AST 250 AST 183.
Stooling appropriately. [place], blood tinged urine, less red than yesterday. BC and UC positive for E coli.
Pt reports feeling improved complaining of leon discomfort. LFTs normalizing, leukocytosis improving, urine less blood tinged. Second BC after 24hrs abx NGTD. Lactate 1.7, VBG normalized after BiPAP overnight. Now saturating well on room air.
Troponin mildly elevated 0.042 in setting of septic shock. pro-BNP 1530.
Leon replaced due to retention overnight. New facial vesicles, slight pain. Mild uptick in leukocytosis, possibly in setting of replaced leon aggrevation.
AFVSS, improving leukocytosis. In chair. Encouraged to ambulate, using walker. Mild bilateral effusion on CXR and scrotal swelling improving. Hold lasix, observe for improvement with movement. Bladder pain- start motrin, antiinflammatory.
Plan to remove leon tomorrow. D/c planning for home abx.
�
�
PLAN:
#septic shock
#metabolic lactic acidosis
#prostatitis- unclear acute on chronic (hx infxn 3 yrs ago)
- Continue meropenem
- ID following, recommended meropenem with concern of ESBL.
- IVF 150ml/hr s/p 2L bolus in ED. LR bolus. PO intake appropriate. Low threshold to restart fluids.
- Urology following
- Follow enteritis, most likely in setting of sepsis. No abdominal pain. Normal diet toelrated well.
- BC and UC positive for E coli. Second BC positive, drawn only after 2 doses meropenem. 3rd BC NGTD 48h[address] midline
- Flu, covid negative
- Leon replaced due to retention overnight. Removal pending urology recs. plan to remove tomorrow.
#urinary retention
#bladder/urethral spasms
#constipation
- Urology following: Recommend against antispasmodics with risk of further retention. Recommended valium, although d/c due to the reaction. No suppositories with prostatitis
- Bowel regimen ordered. BM overnight. Senna added to regimen to attempt to help retention issues
- 1 dose oxybutynin for bladder spasms.
- Start antiinflammatory motrin. d/c dilaudid yesterday
#transaminitis- shock liver
- in setting of septic shock, possible end organ damage- improving. no abd pain
- RUQ abdominal US- diffuse steatosis, moderate CBD dilation, moderate GB thickening and submucosal edema, no evidence of cholelithiasis
- F/u outpt for steatosis
#wheezing
- PRN duonebs
#facial vesicles
- Concern HSV flare. Start on valtrex
#type II demand ischemia
- elevated troponins, trended down
#swollen scrotum
- pro-BNP, CXR to r/o HF
- Minimal bilateral effusions. Not concerning.
�
DVT prophylaxis: lovenox
Diet: low residue
Disposition: tomorrwo d/c
Anticipated Discharge: Within 24 hours
Subjective/Interval History
-
Date of Service: May 24, 2025
Pt reports resolving ALVAREZ, scrotal swelling, feeling better today.
Objective Data
-
Labs:
Laboratory Results
05/24/25
06:33
WBC Pending
Hgb Pending
Hct Pending
Plt Count Pending
Vital Signs:
Vital Signs
Temp Pulse Resp BP Pulse Ox
98.6 F 81 16 135/81 96
05/24/25 03:28 05/24/25 03:28 05/24/25 03:28 05/24/25 03:28 05/24/25 03:28
I&O
05/22/25 05/23/25 05/24/25
06:59 06:59 06:59
Intake Total 480 / 480 1200 / 1200 1620 / 1620
Output Total 1360 / 1360 750 / 750 1725 / 1725
Balance -880 / -880 450 / 450 -105 / -105
Physical Exam
-
General: Well Developed, Well Nourished, No Apparent Distress and Comfortable
HEENT: Normocephalic, Atraumatic and Moist Mucous Membranes
Respiratory: Clear to Auscultation (bibasilar atelectasis/crackles, stable) and Non Labored Respirations
Cardiac: Regular Rhythm and S1/S2
GI: Soft, Nontender and Nondistended
Musculoskeletal: No Cyanosis and No Edema
Skin: Warm and Dry
Neuro: AO x 3, No Motor Deficits and Nonfocal/Grossly Intact
Psych: Calm
[2025-05-24 07:08] LABS: Hematocrit 36.5 % (39.0-52.0); Hemoglobin 12.4 g/dL (13.0-18.0); Mean Corp Hgb Conc. 34.0 g/dL (33.0-37.0); Mean Corpuscular Volume 81.1 fL (80.0-94.0); Platelet Count 102 10^3/uL (130-400); Red Cell Dist. Width 12.9 % (11.5-14.5)
[2025-05-24 07:35] VITALS: BP 125/76
[2025-05-24 09:02] VITALS: BMI 25.1
[2025-05-24] MEDS: SENNA SYRUP 8.8 MG PO (09:17)
[2025-05-24] MEDS: FLOMAX 0.4 MG PO (09:17)
[2025-05-24] MEDS: PROTONIX 40 MG PO (09:17)
--- NOTE | 2025-05-24 09:19 | W.PN.ID1 ---
Date of Service
Date of Service: May 24, 2025
Today's Communication
Continue abx.
Assessment / Plan
# MDR/ESBL-E. coli bacteremia(3 sets) post transrectal prostate biopsy (05/18/25)
# Acute prostatitis
# Fever - resolved
# Leukocytosis- resolved
# Failed voiding trial - leon in place
# Scrotal edema
- Repeat blood cx's x neg to date.
- Ucx ESBL-E. coli -unfortunately NO po abx option
- Continue ertapenem 1g IV q24hr through 06/03/25.
- Follow weekly CBC, CMP while on abx
- Infusion sheet submitted to clinical case manager 05/22 and 05/23
- Place midline when close to discharge.
- PT/OT eval
- Scrotal elevation. Management as per Urology
# HSV labialis
- s/p Valacyclovir 1g po q12 x 2 doses
- Continue topical acyclovir 5% five times/d.
����������������������������������������������������������
Chief Complaint
-: UTI and Bacteremia
Subjective / Review of Systems
Review of Systems: No Fever
Vital Signs / Physical Exam
Vital Signs
Vital Signs
Temp Pulse Resp BP Pulse Ox
97.7 F 82 18 125/76 95
05/24/25 07:35 05/24/25 07:35 05/24/25 07:35 05/24/25 07:35 05/24/25 07:35
Physical Exam
Constitutional: No Acute Distress, Comfortable and Non-toxic
Cardiovascular: Regular Rate and S1/S2
Pulmonary: Clear
Gastrointestinal: Soft, Non Tender and Non Distended
Genito-Urinary: Leon and Clear Urine; Negative CVA Tenderness
Extremities: Negative Edema
Neurological: AO x 3
Objective Data
Lab Data
Lab Results
05/24/25 06:33
05/22/25 04:13
Estimated Creat Clear 69 ml/min 05/22/25 04:13
Lactic Acid 1.7 mmol/L (0.7-2.0) 05/20/25 12:59
Total Bilirubin 0.6 mg/dl (0.2-1.3) 05/22/25 04:13
AST 51 U/L (17-59) 05/22/25 04:13
ALT 84 U/L (0-50) H 05/22/25 04:13
Alkaline Phosphatase 109 U/L (38-126) 05/22/25 04:13
Most recent labs reviewed.
Micro Results:
05/20/25 18:06 Salmonella/Shigella Culture - Final
Feces/Stool No Salmonella, Shigella, Aeromonas or Plesiomonas species
isolated.
Campylobacter Culture - Final
No Campylobacter species isolated.
Shiga Toxin Test - Final
No E. coli Shiga Toxin 1 or 2 detected.
05/21/25 03:04 Blood Culture - Preliminary
Blood/Venous No Growth in 72 hours- Final report to follow
05/21/25 12:47 Blood Culture - Preliminary
Blood/Venous No Growth in 48 hours- Final report to follow
05/19/25 10:57 Blood Culture - Final
Blood/Venous Escherichia coli - ESBL
Gram Stain - Final
05/19/25 10:57 Blood Culture - Final
Blood/Venous Escherichia coli - ESBL
Gram Stain - Final
05/20/25 03:56 Blood Culture - Preliminary
Blood/Venous Escherichia coli - ESBL
Gram Stain - Preliminary
05/19/25 10:48 Urine Culture - Final
Urine Escherichia coli - ESBL
05/19/25 11:57 Influenza Types A & B (DESTINI) - Final
Nasal Swab Negative for Influenza A & B, NAAT
Negative results must be combined with clinical observations
and patient history.
Nucleic Acid Amplification test (NAAT)performed on the
[employer] platform.
Imaging:
05/19/25 CT a/p: Possible mild colitis of the transverse colon versus findings due to limited distention. Limited evaluation without oral contrast. Moderate prostate hypertrophy.No evidence of abscess formation.
[2025-05-24] MEDS: ZOVIRAX OINTMENT 5% 1 APPLIC TOPICAL ×4 (09:21→22:10)
--- NOTE | 2025-05-24 09:37 | PN.CDI ---
CDI
- -
CDI:
Physician Documentation Request
Admit Date: 05/19/25 14:20
Dear Doctor Ayan,
Patient admitted for septic shock, metabolic acidosis and prostatitis.
Hospitalist progress note states 'Transaminitis in setting of septic shock, possible end organ damage'
Based on the above, could you please clarify the diagnosis related to the elevated liver enzymes
Shock liver
acute hepatic failure
Transaminitis only
Other
Use of terms such as suspected, likely, concern for, or probable (associated with a specific diagnosis that is being evaluated, monitored, or treated as if it exists) are acceptable and can be coded in the inpatient setting, when documented at the
time of discharge.
Thank you,
Alyson Mathis RN, BSN
CDI Specialist
tiger text
Please use your independent medical judgment in providing your response.
[2025-05-24] MEDS: MOTRIN 400 MG PO ×2 (10:37→22:18)
--- NOTE | 2025-05-24 10:46 | W.PN.URO.CBU ---
Today's Communication / Plan
-
leon out 0645 wednesday am
Assessment / Plan
-
urosepsis for transrecta bx prostate bx will keep leon and try another voiding trial am tomorrow pt improcved from sepsis
Diagnosis
-
Date of Service: May 24, 2025
-
Patient Diagnosis:
Post Op Day:
Patient Diagnosis:
Post Op Day:
Patient Diagnosis:
Post Op Day:
Patient Diagnosis:
Post Op Day:
Patient Diagnosis:
Post Op Day:
Patient Diagnosis:sepsis s/p transrectal prostate bxs despite cefdir and tobramycin ESBL SEPSI URINARY RETENTION
Subjective
-
feeling better
Objective
-
Vital Signs
Temp Pulse Resp BP Pulse Ox
97.7 F 82 18 125/76 95
05/24/25 07:35 05/24/25 07:35 05/24/25 07:35 05/24/25 07:35 05/24/25 07:35
Intake and Output
05/23/25 05/24/25 05/25/25
06:59 06:59 06:59
Intake Total 1200 / 1200 1620 / 1620
Output Total 750 / 750 1724 / 1725
Balance 450 / 450 -105 / -105
Intake:
Oral fluids 1200 / 1200 1620 / 1620
Output:
Urine, Leon 750 / 750 1725 / 1725
Laboratory Results
05/24/25 06:33
05/22/25 04:13
Review of Systems
-
: Difficulty Voiding
Physical Exam
-
General - well developed, well nourished, no acute distress
Chest - clear bilaterally
Abdomen - soft, non-tender, positive bowel sounds, no CVAT, no incisional pain or distention
Genitalia - normal
Rectal - normal
Skin - warm & dry with no rash
Neuro - AOx3, no motor deficits
Extremities - no clubbing, no cyanosis, no edema
Incision - clean, dry
Dressing - clean, dry, intact
Care Review
Data Reviewed
Discussed with: Hospitalist and Nursing
--- NOTE | 2025-05-24 11:57 | CM ---
Addendum entered by Lisa Ibarra, RN 05/24/25 14:53:
Received call from Sandra with [facility], they do not accept the patient's insurance. Referral sent to [facility].
Plan: Discharge to home with [facility] services.
Original Note:
Reviewed the chart notes. CM spoke with Mya with [facility]. They received clinicals and script yesterday and are working on insurance coverage. Referral sent to [facility]. [facility] will manage the patient IV abx and supplies.
supervisor [facility] will manage PICC/Midline. CM continues to be available to patient/family and is monitoring medical plan for needs at discharge.
Plan: Discharge to home with [facility] and [facility]. Waiting on acceptance for [facility].
[2025-05-24] MEDS: INVANZ 60 MG IV (12:52)
[2025-05-24 13:47] VITALS: BP 113/76; PULSE 85; O2SAT 97
[2025-05-24] MEDS: ZOVIRAX OINTMENT 5% TOPICAL (15:30)
[2025-05-24 15:40] VITALS: BP 114/70
[2025-05-24] MEDS: LOVENOX 40 MG SC (18:26)
[2025-05-24 19:00] VITALS: BP 119/65
[2025-05-24 23:00] VITALS: BP 122/63
[2025-05-25 04:53] VITALS: BP 112/76
[2025-05-25 06:09] LABS: Hematocrit 34.0 % (39.0-52.0); Hemoglobin 11.2 g/dL (13.0-18.0); Mean Corp Hgb Conc. 32.9 g/dL (33.0-37.0); Mean Corpuscular Volume 80.8 fL (80.0-94.0); Platelet Count 129 10^3/uL (130-400); Red Cell Dist. Width 13.2 % (11.5-14.5)
[2025-05-25 07:40] VITALS: BP 118/79
[2025-05-25] MEDS: SENNA SYRUP 8.8 MG PO (08:16)
[2025-05-25] MEDS: PROTONIX 40 MG PO (08:16)
[2025-05-25] MEDS: FLOMAX 0.4 MG PO (08:17)
[2025-05-25] MEDS: ZOVIRAX OINTMENT 5% 1 APPLIC TOPICAL (08:22)
--- NOTE | 2025-05-25 09:05 | W.PN.HOSP.TC ---
Today's Communication/Plan
-
Plan reviewed with attending
D/c home with midline for continued IV abx
Assessment / Plan
Assessment / Plan
IMPRESSION:
64yoM PMH urinary retention 3 years ago with recent prostate bx yesterday presenting with signs of sepsis.
Admitted for Tmax 104.1, tachycardic 130, and leukopenic WBC 1.7, normotensive 139/76. Pt received prophylactic cefdinir before and after prostate bx procedure, reports adherence. Pt has hx of urinary retention and fever treated outpt with PO abx 3
years ago. Discussion with urology, surmising likely acute on chronic prostatitis aggravated in setting of prostate bx. CT demonstrated enteritis and transverse colitis, seemingly a sequelae of sepsis rather than source. Resolving nausea and
vomiting, no abdominal pain. Lactic acidosis 3.7. Hematuria once leon placed. ECG demonstrated sinus tachycardia with r axis.
Overnight, pt BP dropped. Fluid bolus given. Levophed started for MAP<65. Pt was complaining of bladder spasms and received dose valium to relieve symptoms with acute onset of wheezing, diaphoresis, hypertension ameliorated with bendryl, pepcid,
racemic epi, zofran. After episode, pt BP stabilized.
Next day, pt improving with resolved nausea, SOB. Afebrile. CXR demonstrated bibasilar atelectasis with correlation on exam, not concerned for pneumonia currently. WBC 16.7. Lactate trending down, most recent 2.5. LFTs elevated AST 250 AST 183.
Stooling appropriately. [place], blood tinged urine, less red than yesterday. BC and UC positive for E coli.
Pt reports feeling improved complaining of leon discomfort. LFTs normalizing, leukocytosis improving, urine less blood tinged. Second BC after 24hrs abx NGTD. Lactate 1.7, VBG normalized after BiPAP overnight. Now saturating well on room air.
Troponin mildly elevated 0.042 in setting of septic shock. pro-BNP 1530.
Leon replaced due to retention overnight. New facial vesicles, slight pain. Mild uptick in leukocytosis, possibly in setting of replaced leon aggrevation.
AFVSS, improving leukocytosis. In chair. Encouraged to ambulate, using walker. Mild bilateral effusion on CXR and scrotal swelling improving. Hold lasix, observe for improvement with movement. Bladder pain- start motrin, antiinflammatory.
Leon removed. Respiratory symptoms improved. Midline placed. Plan home today.
�
�
PLAN:
#septic shock
#metabolic lactic acidosis
#prostatitis- unclear acute on chronic (hx infxn 3 yrs ago)
- Continue meropenem
- ID following, recommended meropenem with concern of ESBL.
- IVF 150ml/hr s/p 2L bolus in ED. LR bolus. PO intake appropriate. Low threshold to restart fluids.
- Urology following
- Follow enteritis, most likely in setting of sepsis. No abdominal pain. Normal diet tolerated well.
- BC and UC positive for E coli. Second BC positive, drawn only after 2 doses meropenem. 3rd BC NGTD 48hrs. Midline placed.
- Flu, covid negative
- Leon removed
#urinary retention
#bladder/urethral spasms
#constipation
- Urology following: Recommend against antispasmodics with risk of further retention. Recommended valium, although d/c due to the reaction. No suppositories with prostatitis
- Bowel regimen ordered. BM overnight. Senna added to regimen to attempt to help retention issues
- 1 dose oxybutynin for bladder spasms.
- Start antiinflammatory motrin. d/c Dilaudid. Pain controlled.
#transaminitis- shock liver
- in setting of septic shock, possible end organ damage- improving. no abd pain
- RUQ abdominal US- diffuse steatosis, moderate CBD dilation, moderate GB thickening and submucosal edema, no evidence of cholelithiasis
- F/u outpt for steatosis
#wheezing
- PRN duonebs
#facial vesicles
- Concern HSV flare. Start on valtrex. continue face cream
#NIMI
- elevated troponins, trended down
#swollen scrotum
- pro-BNP, CXR to r/o HF
- Minimal bilateral effusions. Not concerning.
�
DVT prophylaxis: lovenox
Diet: normal
Disposition: today to home
Anticipated Discharge: Today
Subjective/Interval History
-
Date of Service: May 25, 2025
Pt reports feeling well today. He complains of the face vesicles crusting and bleeding today.
His leon is out and he already urinated about an hour after removal. He reports he had some discomfort on urination and it was blood tinged, otherwise feeling okay.
Objective Data
-
Labs:
Laboratory Results
05/25/25
03:53
WBC 6.8
Hgb 11.2 L
Hct 34.0 L
Plt Count 129 L D
Vital Signs:
Vital Signs
Temp Pulse Resp BP Pulse Ox
97.6 F 82 16 118/79 98
05/25/25 07:40 05/25/25 07:40 05/25/25 07:40 05/25/25 07:40 05/25/25 07:40
I&O
05/24/25 05/25/25 05/26/25
06:59 06:59 06:59
Intake Total 1620 / 1620 900 / 900
Output Total 1725 / 1725 1374 / 1374
Balance -105 / -105 -474 / -474
Review of Systems
-
History Source: Patient
All other systems: Reviewed and negative
Respiratory: Reports No Symptoms (signficantly improved)
Physical Exam
-
General: Well Developed, Well Nourished, No Apparent Distress and Comfortable
HEENT: Normocephalic, Atraumatic, Moist Mucous Membranes and Anicteric
Respiratory: Clear to Auscultation, Crackles (basilar, improving) and Non Labored Respirations
Cardiac: Regular Rhythm and S1/S2
GI: Soft and Nontender
Genito-urinary: Negative Leon
Musculoskeletal: No Clubbing and No Edema
Skin: Warm and Dry
Neuro: AO x 3, No Motor Deficits and Nonfocal/Grossly Intact
Psych: Calm
--- NOTE | 2025-05-25 09:47 | W.PN.URO.CBU ---
Today's Communication / Plan
-
per hospitalist try and keep leon out
Assessment / Plan
-
urosepsis for transrectal bx prostate bx voiding jim try and keep leon out
Diagnosis
-
Date of Service: May 25, 2025
-
Patient Diagnosis:
Post Op Day:
Patient Diagnosis:
Post Op Day:
Patient Diagnosis:
Post Op Day:
Patient Diagnosis:
Post Op Day:
Patient Diagnosis:
Post Op Day:
Patient Diagnosis:
Post Op Day:
Patient Diagnosis:sepsis s/p transrectal prostate bxs despite cefdir and tobramycin ESBL SEPSI URINARY RETENTION
Subjective
-
voiding leon out mild hematuria
Objective
-
Vital Signs
Temp Pulse Resp BP Pulse Ox
97.6 F 82 16 118/79 98
05/25/25 07:40 05/25/25 07:40 05/25/25 07:40 05/25/25 07:40 05/25/25 07:40
Intake and Output
05/24/25 05/25/25 05/26/25
06:59 06:59 06:59
Intake Total 1620 / 1620 900 / 900
Output Total 1724 / 172 1374 / 1374
Balance -105 / -105 -474 / -474
Intake:
Oral fluids 1620 / 1620 900 / 900
Output:
Urine, Leon 1724 / 1724 1374 / 1374
Laboratory Results
05/25/25 03:53
05/22/25 04:13
Review of Systems
-
: Bleeding
Physical Exam
-
General - well developed, well nourished, no acute distress
Chest - clear bilaterally
Abdomen - soft, non-tender, positive bowel sounds, no CVAT, no incisional pain or distention
Genitalia - normal
Rectal - normal
Skin - warm & dry with no rash
Neuro - AOx3, no motor deficits
Extremities - no clubbing, no cyanosis, no edema
Incision - clean, dry
Dressing - clean, dry, intact
Care Review
Data Reviewed
Discussed with: Nursing
--- NOTE | 2025-05-25 11:35 | CM ---
Reviewed the chart notes and spoke with Brooklynn with [facility]. Midline information faxed to ([phone]). Per Brooklynn, start of service will be tomorrow. Patient to receive his dose of IV abx here. [facility] will teach
administration in the home tomorrow. CM continues to be available to patient/family and is monitoring medical plan for needs at discharge.
Plan: Discharge to home with [facility] services and [facility] for IV abx.
--- NOTE | 2025-05-25 11:38 | W.PN.ID1 ---
Date of Service
Date of Service: May 25, 2025
Today's Communication
Continue antibiotics. See below�
Assessment / Plan
# MDR/ESBL-E. coli bacteremia(3 sets) post transrectal prostate biopsy (05/18/25)
# Acute prostatitis
# Fever - resolved
# Leukocytosis- resolved
# Failed voiding trial - leon in place
# Scrotal edema
- Repeat blood cx's x neg to date.
- Ucx ESBL-E. coli - unfortunately NO po abx option
- Continue ertapenem 1g IV q24hr through 06/03/25.
- Follow weekly CBC, CMP while on abx
- Infusion sheet submitted to case manager specialist 05/22 and 05/23
- Midline placed.
- PT/OT eval
- Scrotal elevation. Management as per Urology
# HSV labialis
- s/p Valacyclovir 1g po q12 x 2 doses although patient feels there may be some spreading.
- Will give 3 additional days of oral Valtrex.
����������������������������������������������������������
Chief Complaint
-: UTI and Bacteremia
Subjective / Review of Systems
Review of Systems: No Fever and No Chills
Vital Signs / Physical Exam
Vital Signs
Vital Signs
Temp Pulse Resp BP Pulse Ox
97.6 F 82 16 118/79 98
05/25/25 07:40 05/25/25 07:40 05/25/25 07:40 05/25/25 07:40 05/25/25 07:40
Physical Exam
Constitutional: No Acute Distress, Comfortable and Non-toxic
Oropharyngeal: Other (Perioral crusting noted.)
Cardiovascular: Regular Rate and S1/S2
Pulmonary: Clear
Gastrointestinal: Soft, Non Tender and Non Distended
Genito-Urinary: Negative Leon
Extremities: Negative Edema
Neurological: AO x 3
Objective Data
Lab Data
Lab Results
05/25/25 03:53
05/22/25 04:13
Estimated Creat Clear 69 ml/min 05/22/25 04:13
Lactic Acid 1.7 mmol/L (0.7-2.0) 05/20/25 12:59
Total Bilirubin 0.6 mg/dl (0.2-1.3) 05/22/25 04:13
AST 51 U/L (17-59) 05/22/25 04:13
ALT 84 U/L (0-50) H 05/22/25 04:13
Alkaline Phosphatase 109 U/L (38-126) 05/22/25 04:13
Most recent labs reviewed.
Micro Results:
05/21/25 03:04 Blood Culture - Preliminary
Blood/Venous No Growth in 4 days- Final report to follow
05/21/25 12:47 Blood Culture - Preliminary
Blood/Venous No Growth in 72 hours- Final report to follow
05/20/25 18:06 Salmonella/Shigella Culture - Final
Feces/Stool No Salmonella, Shigella, Aeromonas or Plesiomonas species
isolated.
Campylobacter Culture - Final
No Campylobacter species isolated.
Shiga Toxin Test - Final
No E. coli Shiga Toxin 1 or 2 detected.
05/19/25 10:57 Blood Culture - Final
Blood/Venous Escherichia coli - ESBL
Gram Stain - Final
05/19/25 10:57 Blood Culture - Final
Blood/Venous Escherichia coli - ESBL
Gram Stain - Final
05/20/25 03:56 Blood Culture - Preliminary
Blood/Venous Escherichia coli - ESBL
Gram Stain - Preliminary
05/19/25 10:48 Urine Culture - Final
Urine Escherichia coli - ESBL
05/19/25 11:57 Influenza Types A & B (DESTINI) - Final
Nasal Swab Negative for Influenza A & B, NAAT
Negative results must be combined with clinical observations
and patient history.
Nucleic Acid Amplification test (NAAT)performed on the
[employer] platform.
Imaging:
05/19/25 CT a/p: Possible mild colitis of the transverse colon versus findings due to limited distention. Limited evaluation without oral contrast. Moderate prostate hypertrophy.No evidence of abscess formation.
Care Review
Plan reviewed with: Physician (Resident)
[2025-05-25 11:40] VITALS: BP 131/82
[2025-05-25] MEDS: INVANZ 60 MG IV (12:00)
[2025-05-25] MEDS: ZOVIRAX OINTMENT 5% TOPICAL (12:11)
--- NOTE | 2025-05-25 14:32 | VNURNOTE ---
Home Health Liaison met with patient at bedside to discuss [facility] nurse/therapy, visits, schedule and homebound status. Patient is agreeable and understands that visits at home will be 2-3 x per week to assess and teach medical management. Patient
is aware that [facility] will contact them for start of care after discharge from .
[facility] referral completed in [facility].
== END 2025-05-25 15:02 | disposition home health service (06) | DRG 862 ==
LOC: 2 NORTH 14:20
PROVIDERS: Nurse Practitioner Family; ADMITTING PHYSICIAN Hospitalist; ATTENDING PHYSICIAN Internal Medicine; CONSULT PHYSICIAN Internal Medicine Infectious Disease; EMERGENCY PHYSICIAN Emergency Medicine; OTHER PHYSICIAN Specialist
PROC: 5A09357 Assistance with Respiratory Ventilation, Less than 24 Consecutive Hours, Continuous Positive Airway Pressure (ICD-10-PCS; 2025-05-20)
DX: T81.44XA Sepsis following a procedure, initial encounter (principal); A41.51 Sepsis due to Escherichia coli [E. coli]; R65.21 Severe sepsis with septic shock; Z16.12 Extended spectrum beta lactamase (ESBL) resistance; N41.0 Acute prostatitis; E87.20 Acidosis, unspecified; I5A Non-ischemic myocardial injury (non-traumatic); J98.11 Atelectasis; R33.8 Other retention of urine; Y83.8 Other surgical procedures as the cause of abnormal reaction of the patient, or of later complication, without mention of misadventure at the time of the procedure; B00.1 Herpesviral vesicular dermatitis; J98.01 Acute bronchospasm; R31.9 Hematuria, unspecified; E78.00 Pure hypercholesterolemia, unspecified; Z11.52 Encounter for screening for COVID-19
CPT/HCPCS: 51702; 71045; 71046; 74177; 76700; 80048; 80053; 81003; 81015; 82805; 83605; 83735; 83880; 84484; 85025; 85027; 87040; 87045; 87046; 87077; 87086; 87154; 87186; 87205; 87427; 87502; 87811; 93005; 94640; 94660; 94760; 96361; 96365; 96366; 96375; 97110; 97116; 97162; 97166; 97530; 99285; J1335; Q9967

== ENCOUNTER 2025-06-10 01:47 | Inpatient (IN) | payer OTHER, SELFPAY ==
[2025-06-09 19:48] VITALS: BP 144/77
--- NOTE | 2025-06-09 21:01 | ED.GENMED ---
History of Present Illness
General
Chief Complaint: Male Genito-Urinary Symptoms
Source: patient
Exam Limitations: none
Time Seen by Provider: 06/09/25 20:46
Nursing documentation reviewed up to this point in time: agreed with
History of Present Illness
History of Present Illness:
Note:
CHIEF COMPLAINT(S)
Pain and swelling in the right scrotal area, chills.
HISTORY OF PRESENT ILLNESS
The patient is a 64-year-old male with a recent history of undergoing a biopsy related to a 10-year condition (specific details of the condition were not discussed), which led to a hospital stay involving intensive care and treatment with
vasopressors due to septic shock. The patient reported receiving intravenous meropenem every six hours during hospitalization and completing antibiotics at home post-discharge. Since then, the patient has experienced pain and swelling in the right
scrotal area. Initially, the patient attributed the discomfort to a possible musculoskeletal cause, thinking it would resolve on its own.
The pain intensified last night, prompting the patient to apply pressure to the area, which resulted in significant pain. The patient contacted Dr. Hall, who advised visiting the emergency department for evaluation. The patient self-medicated with
Advil, which alleviated the pain to some extent, but swelling persisted. The patient reported experiencing chills over the past couple of days, which were also noted by his spouse. There is no significant pain at present, although the area remains
tender. The patient recalls having chills primarily in the evenings, with them subsiding by morning. The concern regarding potential orchitis or epididymitis was expressed, along with fears of an underlying infective process, potentially distinct
from previous ESBL infection.
The patient denied any current abdominal pain but mentioned past occurrences of abdominal issues, including pleural effusions and atelectasis, following previous bouts of generalized sepsis. No recent increase in temperature or cough was reported.
ADDITIONAL HISTORY OBTAINED FROM SOURCES OTHER THAN THE PATIENT
Per the patients spouse, there has been an observation of chills, particularly noticeable in the evening, with the patient feeling hot to touch occasionally.
PHYSICAL EXAM
General: Alert, no acute distress.
Skin: Warm, dry.
Head: Normocephalic, atraumatic.
Neck: Supple, trachea midline.
Eye Ears, Nose, Mouth, and Throat: Oral mucosa moist.
Cardiovascular: Normal peripheral perfusion, No edema.
Respiratory: Respirations are non-labored.
Gastrointestinal: Abdomen nondistended, not tender to palpation, no guarding.
Back: Normal range of motion, Normal alignment.
Musculoskeletal: Normal ROM, normal strength.
Neurological: Alert and oriented to person, place, time, and situation, No focal neurological deficit observed.
Psychiatric: Cooperative, appropriate mood & affect.
: mild right testicular swelling, minimally tender
PROBLEM LIST
Acute:
1. Pain and swelling in the right scrotal area
2. Chills
3. History of septic shock post-biopsy
4. Recent treatment with intravenous meropenem
5. History of ESBL infection
PLAN
1. Perform an ultrasound of the scrotal area to evaluate for potential orchitis or epididymitis.
2. Conduct blood cultures to check for signs of infection.
3. Request a CAT scan to examine for any additional abdominal or pelvic issues.
4. Monitor and manage symptoms with analgesics as needed.
DIFFERENTIAL DIAGNOSIS
The differential diagnosis includes, in no particular order and is not limited to:
1. Orchitis
2. Epididymitis
3. Abscess
4. Testicular torsion
5. Relapse of ESBL infection
6. Hydrocele
7. Hernia
8. Abscess related to previous procedures
9. Hematoma
10. Idiopathic scrotal pain
CARE-UPDATE
06/10/25 - 00:58
Ultrasound reveals right-sided epididymitis and hydrocele. No acute findings on ct a/p. Chronic pancreatic cyst and biliary ductal dilation noted. Ertapenem initiated following infectious disease consultation.
Disposition:
SUMMARY OF ENCOUNTER
The patient, a 64-year-old male, presented to the emergency department due to pain and swelling in the right scrotal area along with chills. The patient has a history of septic shock following a biopsy. After evaluation, including history, physical
examination, and imaging, right-sided epididymitis and hydrocele were diagnosed. Concerns for a possible E. coli extended-spectrum beta-lactamase (ESBL) infection were raised, leading to the initiation of ertapenem treatment.
DISPOSITION
Admit.
MANAGEMENT OF THE PATIENTS CARE WAS DISCUSSED WITH
Infectious disease and hospitalists were consulted regarding the patients condition and the decision to admit.
PLAN
The patient will be admitted for further management of epididymitis with ertapenem therapy, considering possible ESBL infection. Further evaluations and monitoring for any complications or response to treatment will be conducted during the hospital
stay.
MEDICATION RECONCILIATION
Ertapenem initiated for treatment of suspected ESBL infection.
MEDICAL DECISION MAKING
-Complexity of Data Reviewed: Chronic conditions affecting care including history of septic shock post-biopsy and recent treatment with intravenous meropenem. Differential diagnosis includes orchitis, epididymitis, abscess, testicular torsion, and
relapse of ESBL infection.
-Data:
Category 1
Clinical information was obtained from an independent historian via the patients spouse, noting evening chills and occasional fever.
Category 3
Discussion of management with an infectious disease specialist and hospitalists for admission based on the severity of the infection and potential complications related to ESBL.
-Risk:
The decision to initiate prescription drug management with ertapenem, a therapy requiring monitoring for potential toxicity. The decision for admission due to the complexity and risk associated with the patients current presentation and history.
DIAGNOSIS
-N45.2 Epididymo-orchitis with abscess
-N13.2 Hydronephrosis with ureteral stricture, not elsewhere classified (Hydrocele)
-B96.20 Unspecified Escherichia coli as the cause of diseases classified elsewhere (suspected E. coli ESBL Infection)
Phy Exam
Physical Exam
Physical Exam:
.
Course
Orders/Labs/Results
Orders:
Orders
06/09/25 20:57
Complete Blood Count/With Diff Urgent
Lactic Acid Urgent
06/09/25 20:58
Comprehensive Metabolic Panel Urgent
06/09/25 20:59
Blood Culture Urgent
MORALES Source: Blood/Venous
Specimen Description:
06/09/25 21:09
Scrotum US [US Scrotum] Urgent
Comment:
Reason For Exam: right testicular swelling
06/09/25 21:10
CT Abd/pelvis W Iv Cont Urgent
Comment:
Reason For Exam: abd distended
06/09/25 22:24
Urinalysis Reflex To Culture Urgent
Date Specimen was Collected: 06/09/25
Time Specimen was Collected: 21:45
Urine Microscopic Reflex Cult Urgent
Urine Culture Urgent
MORALES Source: U
Specimen Description:
Date Specimen was Collected: 06/09/25
Time Specimen was Collected: 21:45
06/10/25 00:18
Ertapenem [Invanz] 1,000 mg 0.9% Sodium Chloride [Nss] 50 ml IV NOW
06/10/25 01:24
Admit/Transfer Patient As Directed
Co-Sign Provider:
Level of Care: Inpatient admission
Assign to:: Medical/Surgical
Physician / Group: Chirag
Diagnosis: Epididymoorchitis
Reason for Hospitalization: Epididymoorchitis
Expected length of stay greater than two midnights?: Yes
ELOS- Estimated Length of Stay in days: 2
I certify the patient meets the requirements for IP care: Yes
Code Status As Directed
Resuscitation Status: Full Code
PRN Pain Medication Management As Directed
May give lesser potent ordered pain med per pt: Yes
preference::
Protocol:: Medication orders for pain may be administered in a
manner that supports deferring to patient preference
when the pt is:
- Requesting an ordered lesser potent pain medication.
Least to most potent pain medications are defined
as: acetaminophen < NSAID < tramadol < opioids
(morphine, oxycodone, hydromorphone).
- Requesting a lesser dose of the same medication IF
ORDERED.
- Requesting a less intrusive route of administration
if both routes are prescribed by the provider (PO <
IV).
Abnormal Lab Results
06/09/25 06/09/25 06/09/25
20:57 20:58 22:24
RBC 4.59 L 10^6/uL
(4.70-6.10)
Hgb 12.4 L g/dL
(13.0-18.0)
Hct 38.5 L %
(39.0-52.0)
MCHC 32.2 L g/dL
(33.0-37.0)
Absolute Neuts (auto) 7.4 H 10^3/uL
(1.4-6.5)
Absolute Monos (auto) 0.7 H 10^3/uL
(0.1-0.6)
Neutrophils % 77.5 H %
(42.2-75.2)
Lymphocytes % 12.5 L %
(20.5-51.1)
Glucose 119 H mg/dl
(70-99)
Ur Occult Blood Reflex 1+ A
(Negative)
Urine Nitrite (Reflex) Positive A
(Negative)
Leukocyte Esterase Rfl 2+ A
(Negative)
Urine RBC 7-10 A /HPF
(0-2)
Urine WBC (Reflex) >100 A /HPF
(0-5)
Urine Bacteria (Reflex) Many A
(Negative)
Urine Albumin (Reflex) 2+ A
(Neg - Trace)
06/09/25 20:57
06/09/25 20:58
Vital Signs
Initial and Last Documented VS:
Initial Vital Signs
Temp Pulse Resp BP Pulse Ox
98.8 F 95 18 144/77 100
06/09/25 19:48 06/09/25 19:48 06/09/25 19:48 06/09/25 19:48 06/09/25 19:48
Last Documented Vital Signs
Temp Pulse Resp BP Pulse Ox
98.8 F 86 15 127/77 98
06/09/25 19:48 06/10/25 01:15 06/10/25 01:15 06/10/25 00:30 06/10/25 01:15
*Pulse Oximetry
SaO2: 100
Oxygen Mode of Delivery: Room air
Patient hypoxic: no
*Critical Care Note
Total Time (30-74mins, 75-104mins- exclusive of procedures): Not Applicable
ED Attending Note
-
Portions of this chart may have been created with voice recognition software.� Occasional wrong word or��sound alike� substitutions may have occurred due to the inherent limitations of voice recognition software.
Discharge Plan
Departure
Patient Disposition: Admit
Date of Disposition: 06/10/25
Time of Disposition: 00:33
Admit to: Telemetry
Presentation/result/management discussed w/ accepting MD/DO: Hospitalist
Patient with high blood pressure during this ER visit?: Yes
Condition: Good
Discharge Problem:
UTI (urinary tract infection), Acute epididymo-orchitis
Interventions
Interventions:
*Risk Screen - Suicide Last Done: 06/09/25 19:48
*General Assessment Last Done: 06/09/25 21:31
*Neglect/Abuse Screening Last Done: 06/09/25 21:31
*ED- Fall Risk Assessment Last Done: 06/09/25 21:31
*ED COVID-19 Vaccine History Last Done: 06/09/25 21:31
*ED Influenza Vaccine History Last Done: 06/09/25 21:31
ED-Male Genitourinary Assessment Last Done: 06/09/25 21:31
[2025-06-09 21:08] LABS: Hematocrit 38.5 % (39.0-52.0); Hemoglobin 12.4 g/dL (13.0-18.0); Mean Corp Hgb Conc. 32.2 g/dL (33.0-37.0); Mean Corpuscular Volume 83.9 fL (80.0-94.0); Nucleated Red Blood Cells % 0 % (-); Platelet Count 229 10^3/uL (130-400); Red Cell Dist. Width 13.2 % (11.5-14.5)
[2025-06-09 21:29] VITALS: BP 118/69
[2025-06-09 21:29] LABS: ALT (SGPT) 27 U/L (0-50); AST (SGOT) 23 U/L (17-59); Albumin 4.1 g/dl (3.5-5.0); Alkaline Phosphatase 119 U/L (38-126); Blood Urea Nitrogen 20 mg/dl (9-20); Calcium 8.7 mg/dl (8.4-10.2); Carbon Dioxide 27 mmol/L (22-30); Chloride 103 mmol/L (98-107); Glucose 119 mg/dl (70-99); Potassium 4.2 mmol/L (3.5-5.1); Sodium 138 mmol/L (135-145); Total Protein 7.0 g/dl (6.3-8.2); eGFR > 60.00
[2025-06-09 22:25] VITALS: BP 110/74
[2025-06-09 22:33] LABS: Urine Character Slightly Cloudy (Clear)
[2025-06-09 22:43] LABS: Urine Squamous Cell None seen /LPF (Few); Urine White Cell >100 /HPF (0-5)
[2025-06-10 00:30] VITALS: BP 127/77
[2025-06-10] MEDS: INVANZ 60 MG IV (00:34)
--- NOTE | 2025-06-10 01:32 | HPS.HSE ---
Addendum entered and electronically signed by Fran Beard DO 06/10/25 01:45:
Note: [facility] radi[facility] CT report also notes unchanged 8mm cystic focus in pancreatic head. Rec follow-up MRI in 6 months. Patient aware.
Original Note:
Family Physician
-
Family Physician: NO INTERVIEW UNKNOWN
Chief Complaint
-
Right Testicle Pain / Swelling
History of Present Illness
Patient is a 64y M with PMH significant for recent admission for ESBL E coli bacteremia and septic shock following prostate biopsy who presents to ED complaining of R testicle pain and swelling x 24 hours. Patient was recently admitted 05/19 -
05/25 due to septic shock following prostate biopsy. He was found to have ESBL E coli bacteremia and was treated with meropenem which was changed to ertapenem at discharge. He completed a course of IV abx on 06/03. His midline has since been
removed. Patient states that he was feeling well. He was urinating without difficulty and stopped his tamsulosin a few days ago.
Last PM, patient noted some discomfort in the R testicle. He thought that this might be mechanical in nature; however, the pain did not resolve with change in tight clothing, etc.
Today the pain and swelling seemed more intense and patient presented to the ED for further evaluation and treatment.
Patient does states that he has experienced some chills in the evenings over the past 2-3 nights. His has noted that he felt warm as well.
He has had no urinary symptoms of frequency, urgency, dysuria, hematuria, discharge, etc.
Medical History
Past Medical History
Past Medical History: Reports Other
Additional Past Medical History:
BPH
Septic Shock s/p Prostate Biopsy, MDR ESBL E coli (04/2025)
Past Surgical History: Reports Other
Additional Past Surgical History:
Prostate Biopsy (05/18/25)
[facility] Surgery R Ankle
Bilateral Inguinal Hernia Repairs
Social History
Tobacco: Non-smoker
Alcohol: Occasional
Drug: None
Family History
Family History: Not pertinent
Allergies / Home Medications
Allergies reflects when Allergies were last updated in [facility].
Home Medications with original date entered in [facility]
Allergy/Medication List:
Allergies
Allergy/AdvReac Type Severity Reaction Status Date / Time
diazepam (From Valium) Allergy Unknown Verified 06/10/25 00:33
Home Medications
ascorbic acid (vitamin C) 500 mg tablet (Vitamin C) 500 mg PO DAILY 06/10/25
chondroitin sulfate A sodium 400 mg capsule 400 mg PO DAILY 06/10/25
rosuvastatin 10 mg tablet 10 mg PO DAILY 06/10/25
vitamin B complex 1 cap PO DAILY 06/10/25
Review of Systems
-
History Source: Patient
A 12 point ROS was completed and negative except as noted: Yes
Constitutional: Reports Chills; Denies Fever or Fatigue
Respiratory: Denies Cough or Trouble Breathing
Cardiac: Denies Chest Pain or Palpitations
Abdomen/GI: Denies Abdominal Pain, Nausea, Vomiting or Diarrhea
: Reports Other (R testicle pain and swelling.); Denies Dysuria, Frequency, Flank Pain, Incontinence, Difficulty Voiding, Bleeding or Discharge
Neurological: Denies Dizzy or Headache
Psych: Denies Depression or Anxiety
Physical Exam
Vital Signs
Vital Signs
Temp Pulse Resp BP Pulse Ox
98.8 F 86 15 127/77 98
06/09/25 19:48 06/10/25 01:15 06/10/25 01:15 06/10/25 00:30 06/10/25 01:15
Physical Exam
General: Other (64y M in no distress.)
HEENT: Moist mucous membranes and PERRLA
Respiratory: Clear; No Wheezes, Rales or Rhonchi
Cardiac: S1/S2 and Regular Rhythm; No Murmur
GI: Soft, Non Tender, Non Distended and Normal Bowel Sounds
Genito-urinary: No costovertebral tender and Other (R testicular swelling / prominence and tenderness. Palpable / tender epididymis.)
Musculoskeletal: No Clubbing, No Cyanosis and No Edema
Neuro: AO x 3
Laboratory Results
-
06/09/25 20:57
06/09/25 20:58
Laboratory Results
Lactic Acid 0.9 mmol/L (0.7-2.0) 06/09/25 20:57
Total Bilirubin 0.4 mg/dl (0.2-1.3) 06/09/25 20:58
AST 23 U/L (17-59) 06/09/25 20:58
ALT 27 U/L (0-50) 06/09/25 20:58
Alkaline Phosphatase 119 U/L (38-126) 06/09/25 20:58
Impression/Plan
-
A/P: Patient is a 64y M with PMH significant for recent septic shock following prostate biopsy who presents to ED complaining of R testicular pain and swelling x 24 hours.
Right Epididymoorchitis
- Admit for further evaluation and treatment.
- Resume IV ertapenem given recent MDR ESBL E coli infection and concern that current presentation is related.
- No urinary complaints, recurrent urinary retention, etc.
- Follow temperature curve and monitor for any new / worsening symptoms.
- ID and Urology evaluations for additional recommendations.
- Follow-up culture data.
BPH
- Urinating well since last admission per patient.
- Bladder scan protocol to monitor for any recurrent retention.
DVT Prophylaxis: SCDs
Code Status: Full
[2025-06-10 05:00] VITALS: BP 130/82
[2025-06-10] MEDS: TORADOL 15 MG IV (05:23)
--- NOTE | 2025-06-10 08:25 | W.PN.HOSP.TC ---
Today's Communication/Plan
-
Continue IV ertapenem
Check GC and CT
Follow cultures
Encourage oral hydration (patient requested IVF discontinued)
Assessment / Plan
Assessment / Plan
#Right epididymoorchitis
#Recent ESBL UTI
- Presented with right testicular pain and swelling over 1 days time
- Had hospitalization in April with ESBL E. coli due to prostatitis after Bx
- Ultrasound here with mildly increased blood flow consistent with epididymoorchitis
- Was started on IV ertapenem upon arrival with recent ESBL; cultures pending
- Continue IV ertapenem and follow cultures, trend CBC and temperature
- Planning for pelvic MRI at 48 to 72 hours to assess for abscess
- Urology considering right orchiectomy v TURP for source control
#BPH
- Monitor for signs of retention
- Not currently on finasteride or tamsulosin
Diet: Regular
Thromboprophylaxis: SCDs
CODE STATUS: Full code
Disposition: PT consulted
Anticipated Discharge: > 48 hours
Subjective/Interval History
-
Date of Service: June 10, 2025
Seen and examined at the bedside. No acute events reported overnight. AFVSS this morning
Patient request IV fluids to be discontinued, states he is drinking a lot of water.
A.m. potassium hemolyzed, repeat ordered. Remainder of labs stable, WBC 11.7
Objective Data
-
Labs:
Laboratory Results
06/09/25 06/09/25 06/10/25
20:57 20:58 06:00
WBC 9.6 Pending
Hgb 12.4 L Pending
Hct 38.5 L Pending
Plt Count 229 Pending
Sodium 138 Pending
Potassium 4.2 Pending
Chloride 103 Pending
Carbon Dioxide 27 Pending
BUN 20 Pending
Creatinine 1.3 Pending
Glucose 119 H Pending
Calcium 8.7 Pending
Total Bilirubin 0.4
AST 23
ALT 27
Alkaline Phosphatase 119
Vital Signs:
Vital Signs
Temp Pulse Resp BP Pulse Ox
98.6 F 86 15 130/82 98
06/10/25 05:00 06/10/25 01:15 06/10/25 01:15 06/10/25 05:00 06/10/25 01:15
Review of Systems
-
History Source: Patient
All other systems: Reviewed and negative
Physical Exam
-
General: Well Developed, Well Nourished and No Apparent Distress
HEENT: Normocephalic, Atraumatic, Moist Mucous Membranes and Anicteric
Respiratory: Clear to Auscultation and Non Labored Respirations; Negative Accessory Resp Muscle Use
Cardiac: Regular Rhythm, S1/S2 and Other (Borderline tacky); Negative Murmur, Rub or Gallop
GI: Soft, Nontender, Nondistended and Normal Bowel Sounds
Genito-urinary: Other (Right sided scrotal swelling)
Musculoskeletal: No Clubbing, No Cyanosis and No Edema
Skin: Warm and Dry; Negative Rash
Neuro: AO x 3, Nonfocal/Grossly Intact and Central Nerve's Intact
Psych: Calm
Data Reviewed
-
Labs: Labs Reviewed by me and Discussed with Patient
[2025-06-10 08:44] VITALS: BP 127/68
--- NOTE | 2025-06-10 10:14 | CON.MD ---
Consultation - Medical
-
see dictated note
Dr Ulrich underwent prostate bx with dr meza end apr- path benign- but admitted post op with esbl urosepsis
discharged with 2 weeks of iv antibx
did well- antibx completed past week
last 24hrs developed right testicular swelling/tenderness- now with intermittent fevers and chills
no hematuria or sig dysuria- feels he is emptying his bladder
ua +- low grade temps in ER
scrotal u/s and CT c/w right epididymorchitis- bladder not distended- no evid of air in bladder or fistula- no obvious prostate abscess
wbc and lactic acid normal
exam- abd benign
right testicle indurated and tender- no skin change or obvious abscess
rectal exam- smooth- no fluctuance or sig tenderness
a/p
very complicated situation
recurrent infx- likely persistent esbl
? if tissue source of infx- either right testicle or prostate
antibx directed by ID
check pvr- flomax
toradol
likely pelvic MRI after 48-72hrs of antibx to assess for any abscess
would possibly need to discuss right orch and/or TURP if pt fails to improve
reviewed extenstively with pt
he is also aware [place] dr [place]
Consultation
-
Date/Time Consultation Requested: 05/11/25 at 2am
Date/Time Consultation Performed: 05/11/25 at 9:30am
Requesting Provider: Dr Beard
Performing Provider: Dr Hall
Reason for Consultation: orchitis/UTI
[2025-06-10 10:34] LABS: Hematocrit 38.3 % (39.0-52.0); Hemoglobin 12.6 g/dL (13.0-18.0); Mean Corp Hgb Conc. 32.9 g/dL (33.0-37.0); Mean Corpuscular Volume 80.8 fL (80.0-94.0); Platelet Count 235 10^3/uL (130-400); Red Cell Dist. Width 13.1 % (11.5-14.5)
[2025-06-10 10:58] LABS: Blood Urea Nitrogen 12 mg/dl (9-20); Calcium 8.6 mg/dl (8.4-10.2); Carbon Dioxide 26 mmol/L (22-30); Chloride 100 mmol/L (98-107); Estimated Creatinine Clearance 84 ml/min; Glucose 120 mg/dl (70-99); Sodium 133 mmol/L (135-145); eGFR > 60.00
[2025-06-10] MEDS: FLOMAX 0.4 MG PO (11:14)
[2025-06-10] MEDS: CRESTOR 10 MG PO (11:14)
[2025-06-10 11:51] LABS: Potassium 3.2 mmol/L (3.5-5.1)
--- NOTE | 2025-06-10 13:19 | PTCARENOTE ---
Patient endorses frequent voiding needs, urine specimen obtained per order. PVR was 58- see flowsheets. Pt vital signs stable except low grade temperature. Awaiting blood and urine cultures. Pt is oriented, ambulating independently in room, pain
controlled with scheduled Toradol.
--- NOTE | 2025-06-10 13:26 | CON.ID ---
Consultation
-
Date/Time Consultation Requested: 06/10/2025 0302
Date/Time Consultation Performed: 06/10/2025 1052
Requesting Provider: Dr. Beard
Performing Provider: Dr. Murray
Reason for Consultation: Right epididymoorchitis
Chief Complaint / Past History
History of Present Illness
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 Brownlee in regards to suspected right epididymal orchitis. History is obtained from chart review, along with patient interview, and a review of old records contained in the
[facility] EMR system.
The patient is known to the Infectious Diseases service, having been seen during late April. At that time he had a underwent a transrectal prostate biopsy and presented later to the ER with rigors. Cultures ultimately revealed the presence of
ESBL E. coli, and the patient was discharged to home on 05/25, to continue with ertapenem through 06/03/2025.
The patient reports that he completed his course of antibiotics on that date, and overall was feeling well. He notes that 2 days ago he began to have some right scrotal discomfort while attending a conference and [place]. He initially thought
it may be secondary to undergarment constriction, but loosening his undergarments did not help with the pain. He was not having any dysuria hematuria or any fevers, but he did develop some chills. Ultimately he reached out to His urologist who
advised him to come to the ER for further workup.
ER workup did not reveal leukocytosis, but he has developed one today. Ultrasound imaging has suggested right epididymal orchitis, and CT imaging has revealed an enlarged prostate.
Given prior history of ESBL, the patient has been started on empiric ertapenem, and Infectious Diseases asked to comment upon further antimicrobial therapy.
Past History
Additional Past Medical History:
Dyslipidemia
BPH
Atopic dermatitis
Additional Past Surgical History:
Bilateral hernia repair
Hernia repair with mesh
Lisfranc arch injury left foot repair
Allergy History:
diazepam (From Valium) Allergy (Verified 06/10/25 00:33)
Unknown
Medications Reviewed: Yes
Current Antibiotics:
Ertapenem 1 gm IV q.24 hours
Social History
Tobacco: Non-Smoker
Alcohol: None
Drug: None
Living: With Family
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
Family History
Family History: Not Pertinent
Review of Systems
Vital Signs
Temp Pulse Resp BP Pulse Ox
100.2 F 107 20 127/68 98
06/10/25 08:44 06/10/25 08:44 06/10/25 08:44 06/10/25 08:44 06/10/25 08:44
Physical Exam
Physical Exam
Constitutional: No Acute Distress and Non-toxic
Eyes: No Conjunctival Hemorrhage and Sclera Anicteric
Cardiovascular: S1/S2
Pulmonary: Clear
Gastrointestinal: Soft, Non Tender, Non Distended and Normal Bowel Sounds
Genito-Urinary: Other (Right testicle somewhat swollen and tender to palpation.); Negative CVA Tenderness
Extremities: Negative Edema
Neurological: AO x 3
Lab / Diagnostic Study Results
06/10/25 10:23
06/10/25 11:18
Abs Immat Gran (auto) 0.0 10^3/uL (0-0.05) 06/09/25 20:57
Absolute Neuts (auto) 7.4 10^3/uL (1.4-6.5) H 06/09/25 20:57
Absolute Lymphs (auto) 1.2 10^3/uL (1.2-3.4) 06/09/25 20:57
Absolute Monos (auto) 0.7 10^3/uL (0.1-0.6) H 06/09/25 20:57
Absolute Basos (auto) 0.0 10^3/uL (0-0.2) 06/09/25 20:57
Immature Gran % 0.4 % (0-0.5) 06/09/25 20:57
Neutrophils % 77.5 % (42.2-75.2) H 06/09/25 20:57
Lymphocytes % 12.5 % (20.5-51.1) L 06/09/25 20:57
Monocytes % 6.8 % (1.7-9.3) 06/09/25 20:57
Eosinophils % 2.5 % (0-6) 06/09/25 20:57
Basophils % 0.3 % (0-2) 06/09/25 20:57
Lactic Acid 0.9 mmol/L (0.7-2.0) 06/09/25 20:57
Ur Squamous Epith Cells None seen /LPF (Few) 06/09/25 22:24
Microbiology Results
Micro:
06/10/25 11:09 Chlamydia trachomatis (PCR) - Final
Urine Neisseria gonorrhoeae (PCR) - Final
06/09/25 22:24 Urine Culture - Pending
Urine
06/09/25 20:59 Blood Culture - Pending
Blood/Venous
Imaging:
06/09/2025 CT abdomen/pelvis with contrast: no intestinal obstruction or free air. Unremarkable gallbladder. Enlarged prostate gland. Mild relatively diffuse thickening of the wall of the urinary bladder which may be due to underdistention or
bladder outlet obstruction.
06/09/2025 scrotal ultrasound: no findings to suggest testicular torsion. Small right epididymal head cyst. Small bilateral hydroceles. Relative slight increased blood flow to the right epididymis which could represent right epididymitis.
05/19/25 CT a/p: Possible mild colitis of the transverse colon versus findings due to limited distention. Limited evaluation without oral contrast. Moderate prostate hypertrophy.No evidence of abscess formation.
Assessment / Plan
Right scrotal swelling/pain
Suspected right epididymitis
Leukocytosis
Hx MDRO (ESBL E. coli)
Dyslipidemia
BPH
Atopic dermatitis
Recommendations:
Blood cultures and urine culture are pending.
Continue with empiric ertapenem.
Follow for scrotal improvement.
Further recommendations as additional data is returned.
[2025-06-10 15:25] VITALS: BP 92/56
[2025-06-10] MEDS: TYLENOL 650 MG PO (15:28)
[2025-06-10 15:31] VITALS: BMI 28.4
--- NOTE | 2025-06-10 15:33 | EDCM ---
CM reviewed chart and met with pt bedside in ED. Lives with his in 2 story home, 2 LEI. First floor half bath, full flight to second floor bedroom and full bath.
Independent in ADLs, personal care and ambulation at baseline. No assistive devices, no DME. Still driving.
Was receiving home antibiotics since last admit (05/19-05/25) from [facility] they completed last week.
Also had [facility], no hx SNF.
Confirms prescription coverage.
PCP: Andre Washburn
Pharmacy: [facility]
Anticipate discharge home, CM will continue to follow for all discharge planning needs.
[2025-06-10 18:40] VITALS: BP 108/70
[2025-06-10] MEDS: MOTRIN 400 MG PO (22:29)
--- NOTE | 2025-06-10 22:30 | PTCARENOTE ---
Pt scheduled for 9pm Toradol. Did not want to take it as he didn't feel his pain was that bad. He did however ask if he could have Ibuprofen as it might also help with inflammation. Brenda WHITTAKER aware and ordered one time dose.
[2025-06-10 23:37] VITALS: BP 103/58
[2025-06-11] MEDS: INVANZ 60 MG IV (01:05)
[2025-06-11 07:30] VITALS: BP 97/58
--- NOTE | 2025-06-11 07:40 | W.PN.URO.CBU ---
Today's Communication / Plan
-
await cx'a dn continue antibx
Assessment / Plan
-
ESBL UTi s/p prostate bx
readmitted with right orchitis/UTI
improved with antibx
reviewed options/potential outcomes
plan to continue antibx and await cx's
check pelvic MRI tomorrow to r/o prostatic abscess
did review potential consideration for intervention if abscess present/orchitis fails to resolve or if ID does not feel continue antibx would be helpful alf
will follow
Diagnosis
-
Date of Service: June 11, 2025
-
Patient Diagnosis:
esbl orchitis and UTI/prostatitis
Subjective
-
pt feels better
some frequency but no dysuria or hematuria- PVR under 100cc
right testicle much less uncomfortable
wbc and cx's pending
Objective
-
Vital Signs
Temp Pulse Resp BP Pulse Ox
98.7 F 83 17 103/58 95
06/10/25 23:37 06/10/25 23:37 06/10/25 23:37 06/10/25 23:37 06/10/25 23:37
Intake and Output
06/10/25 06/11/25 06/12/25
06:59 06:59 06:59
Intake Total 1020 / 1020
Balance 1020 / 1020
Intake:
Oral fluids 960 / 960
IV piggybacks 60 / 60
Other:
Number of unmeasured voidings 3
Number of approximated SMALL 1
amounts of urine
Number of approximated MODERATE 2
amounts of urine
Review of Systems
-
Constitutional: Fatigue
Respiratory: No Symptoms
Cardiac: No Symptoms
Abdomen/GI: No Symptoms
: Frequency
Physical Exam
-
General - no acute distress
Abdomen - soft, non-tender
Genitalia - indurated right testicle and some scrotal edema- but no abscess/skin change and improved from yesterday
Rectal - yesterday performed- no abscess or tenderness
Skin - warm & dry with no rash
Neuro - AOx3, no motor deficits
[2025-06-11] MEDS: FLOMAX 0.4 MG PO (07:45)
[2025-06-11] MEDS: CRESTOR 10 MG PO (07:46)
[2025-06-11 09:15] LABS: Hematocrit 38.3 % (39.0-52.0); Hemoglobin 12.3 g/dL (13.0-18.0); Mean Corp Hgb Conc. 32.1 g/dL (33.0-37.0); Mean Corpuscular Volume 83.4 fL (80.0-94.0); Nucleated Red Blood Cells % 0 % (-); Platelet Count 216 10^3/uL (130-400); Red Cell Dist. Width 13.2 % (11.5-14.5)
[2025-06-11 10:06] LABS: Blood Urea Nitrogen 16 mg/dl (9-20); Calcium 8.7 mg/dl (8.4-10.2); Carbon Dioxide 26 mmol/L (22-30); Chloride 101 mmol/L (98-107); Estimated Creatinine Clearance 57 ml/min; Glucose 133 mg/dl (70-99); Potassium 3.8 mmol/L (3.5-5.1); Sodium 137 mmol/L (135-145); eGFR > 60.00
[2025-06-11] MEDS: MOTRIN 400 MG PO ×2 (12:15→20:32)
--- NOTE | 2025-06-11 14:48 | W.PN.ID1 ---
Date of Service
Date of Service: June 11, 2025
Today's Communication
Continue abx.
Assessment / Plan
Right scrotal swelling/pain
Suspected right epididymitis
UTI
Leukocytosis
Hx MDRO (ESBL E. coli)
Dyslipidemia
BPH
Atopic dermatitis
Recommendations:
Blood cultures and urine culture are pending.
Continue with empiric ertapenem.
Follow for scrotal improvement.

Chief Complaint
-: UTI
Subjective / Review of Systems
Pt. seen / examined. Feels testicle is improving.
Vital Signs / Physical Exam
Vital Signs
Vital Signs
Temp Pulse Resp BP Pulse Ox
97.6 F 82 16 97/58 95
06/11/25 07:30 06/11/25 07:30 06/11/25 07:30 06/11/25 07:30 06/11/25 07:30
Physical Exam
Constitutional: No Acute Distress, Comfortable and Non-toxic
Cardiovascular: S1/S2; Negative S3/S4
Pulmonary: Clear; Negative Wheezes or Rales
Gastrointestinal: Soft, Non Tender and Non Distended
Genito-Urinary: Other (decreased size right testicle. less tenderness.)
Neurological: Awake and Alert
Psychological: Calm
Objective Data
Lab Data
Lab Results
06/11/25 08:32
06/11/25 08:32
Estimated Creat Clear 57 ml/min 06/11/25 08:32
Lactic Acid 0.9 mmol/L (0.7-2.0) 06/09/25 20:57
Total Bilirubin 0.4 mg/dl (0.2-1.3) 06/09/25 20:58
AST 23 U/L (17-59) 06/09/25 20:58
ALT 27 U/L (0-50) 06/09/25 20:58
Alkaline Phosphatase 119 U/L (38-126) 06/09/25 20:58
Most recent labs reviewed.
Micro Results:
06/09/25 22:24 Urine Culture - Preliminary
Urine Escherichia coli
06/09/25 20:59 Blood Culture - Preliminary
Blood/Venous No Growth in 24 hours- Final report to follow
06/10/25 11:09 Chlamydia trachomatis (PCR) - Final
Urine Neisseria gonorrhoeae (PCR) - Final
Imaging:
06/09/2025 CT abdomen/pelvis with contrast: no intestinal obstruction or free air. Unremarkable gallbladder. Enlarged prostate gland. Mild relatively diffuse thickening of the wall of the urinary bladder which may be due to underdistention or
bladder outlet obstruction.
06/09/2025 scrotal ultrasound: no findings to suggest testicular torsion. Small right epididymal head cyst. Small bilateral hydroceles. Relative slight increased blood flow to the right epididymis which could represent right epididymitis.
05/19/25 CT a/p: Possible mild colitis of the transverse colon versus findings due to limited distention. Limited evaluation without oral contrast. Moderate prostate hypertrophy.No evidence of abscess formation.
Care Review
Plan reviewed with: Physician (Urology)
[2025-06-11 15:00] VITALS: BP 102/66
--- NOTE | 2025-06-11 15:23 | W.PN.HOSP.TC ---
Today's Communication/Plan
-
Assessment / Plan
Assessment / Plan
NAD
Scleral Anicteric
MMM
No JVD
CTABL
RRR, S1/S2
Soft, NT, ND, BS+
Warm, Dry
AAOx3
Calm
#Right epididymoorchitis
#Recent ESBL UTI
- Presented with right testicular pain and swelling over 1 days time
- Had hospitalization in April with ESBL E. coli due to prostatitis after Bx
- Ultrasound here with mildly increased blood flow consistent with epididymoorchitis
- Was started on IV ertapenem upon arrival with recent ESBL; cultures pending
- Continue IV ertapenem and follow cultures, trend CBC and temperature
- Planning for pelvic MRI at 48 to 72 hours to assess for abscess
- Urology considering right orchiectomy v TURP for source control
- Provide scrotal support
#BPH
- Monitor for signs of retention
- Not currently on finasteride or tamsulosin
Diet: Regular
Thromboprophylaxis: SCDs
CODE STATUS: Full code
Disposition: PT consulted
Anticipated Discharge: > 48 hours
Subjective/Interval History
-
Date of Service: June 11, 2025
Seen and examined. No new complaints. No acute overnight events.
Objective Data
-
Labs:
Laboratory Results
06/11/25
08:32
WBC 8.7
Hgb 12.3 L
Hct 38.3 L
Plt Count 216
Sodium 137
Potassium 3.8
Chloride 101
Carbon Dioxide 26
BUN 16
Creatinine 1.2
Glucose 133 H
Calcium 8.7
Vital Signs:
Vital Signs
Temp Pulse Resp BP Pulse Ox
97.6 F 82 16 97/58 95
06/11/25 07:30 06/11/25 07:30 06/11/25 07:30 06/11/25 07:30 06/11/25 07:30
I&O
06/10/25 06/11/25 06/12/25
06:59 06:59 06:59
Intake Total 1020 / 1020
Balance 1020 / 1020
[2025-06-11 23:42] VITALS: BP 97/59
[2025-06-12] MEDS: INVANZ 60 MG IV (00:53)
[2025-06-12 07:00] VITALS: BP 97/61
[2025-06-12] MEDS: FLOMAX 0.4 MG PO (08:11)
[2025-06-12] MEDS: CRESTOR 10 MG PO (08:11)
--- NOTE | 2025-06-12 10:55 | W.PN.URO.CBU ---
Today's Communication / Plan
-
Await pelvic MRI results
Assessment / Plan
-
ESBL UTi s/p prostate bx
readmitted with right orchitis/UTI
improved with antibx
reviewed options/potential outcomes
plan to continue antibx and await cx's
check pelvic MRI today to r/o prostatic abscess
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
will follow
Diagnosis
-
Date of Service: June 12, 2025
-
Patient Diagnosis:
esbl right epididymorchitis and UTI/prostatitis
Subjective
-
Feels better
Right testis/cord far less tender
Objective
-
Vital Signs
Temp Pulse Resp BP Pulse Ox
97.6 F 86 12 97/61 96
06/12/25 07:00 06/12/25 07:00 06/12/25 07:00 06/12/25 07:00 06/12/25 07:00
Intake and Output
06/11/25 06/12/25 06/13/25
06:59 06:59 06:59
Intake Total 1020 / 1020 540 / 540
Balance 1020 / 1020 540 / 540
Intake:
Oral fluids 960 / 960 480 / 480
IV piggybacks 60 / 60 60 / 60
Other:
Number of unmeasured voidings 3
Number of approximated SMALL 1
amounts of urine
Number of approximated MODERATE 2 3
amounts of urine
Laboratory Results
06/11/25 08:32
06/11/25 08:32
Review of Systems
-
Constitutional: Fatigue
Respiratory: No Symptoms
Cardiac: No Symptoms
Abdomen/GI: No Symptoms
: No Symptoms
Neurological: No Symptoms
Physical Exam
-
General - well developed, well nourished, no acute distress
Abdomen - soft, non-tender
Genitalia - right testis swelling w/o significant tenderness, no fluctuance, no erythema or cellulitis
Skin - warm & dry with no rash
Neuro - AOx3, no motor deficits
--- NOTE | 2025-06-12 14:01 | CM ---
Patient seen at bedside with physicians. Patient states that he was home with [facility] last admission and per ID he may need to have ongoing IV antibiotics at home. Patient indicated that he did want to return to [facility] and that he did not have any changes from his last admission. CM will continue to follow for discharge planning needs.
Plan; home with [facility] if IV antibiotics recommended and family supports
--- NOTE | 2025-06-12 14:23 | W.PN.ID1 ---
Date of Service
Date of Service: June 12, 2025
Today's Communication
Continue antibiotics. See below�
Assessment / Plan
Right scrotal swelling/pain
Suspected right epididymitis
UTI
Leukocytosis
Hx MDRO (ESBL E. coli)
Dyslipidemia
BPH
Atopic dermatitis
Recommendations:
Improvement in scrotal swelling encouraging.
Blood cultures without growth.
Urine culture reveals ESBL E. coli
Continue with ertapenem. Patient will likely need a 3 to 6-week course of IV antibiotics
IV prescription placed on paper chart.
Will place midline.

Chief Complaint
-: UTI
Subjective / Review of Systems
Patient seen and examined. Reports improvement in right testicular swelling and size, as well as tenderness.
Review of Systems: No Fever and No Chills
Vital Signs / Physical Exam
Vital Signs
Vital Signs
Temp Pulse Resp BP Pulse Ox
97.6 F 86 12 97/61 96
06/12/25 07:00 06/12/25 07:00 06/12/25 07:00 06/12/25 07:00 06/12/25 07:00
Physical Exam
Constitutional: No Acute Distress, Comfortable and Non-toxic
Pulmonary: Non Labored
Gastrointestinal: Non Distended
Genito-Urinary: Other (Right testicle with decreased swelling. Decreased tenderness to palpation.)
Neurological: Awake and Alert
Psychological: Calm
Objective Data
Lab Data
Lab Results
06/11/25 08:32
06/11/25 08:32
Estimated Creat Clear 57 ml/min 06/11/25 08:32
Lactic Acid 0.9 mmol/L (0.7-2.0) 06/09/25 20:57
Total Bilirubin 0.4 mg/dl (0.2-1.3) 06/09/25 20:58
AST 23 U/L (17-59) 06/09/25 20:58
ALT 27 U/L (0-50) 06/09/25 20:58
Alkaline Phosphatase 119 U/L (38-126) 06/09/25 20:58
Most recent labs reviewed.
Micro Results:
06/09/25 22:24 Urine Culture - Final
Urine Escherichia coli - ESBL
06/09/25 20:59 Blood Culture - Preliminary
Blood/Venous No Growth in 48 hours- Final report to follow
06/10/25 11:09 Chlamydia trachomatis (PCR) - Final
Urine Neisseria gonorrhoeae (PCR) - Final
Urine Culture Final 06/09/25
CC: Greater than 100,000 CFU/ML Escherichia coli - ESBL
Isolation Precautions Required
Organism 1 Escherichia coli - ESBL
1. Escherichia coli - ESBL
M.I.C. RX
--------- ---
Amoxicillin/Potas. Clavulanate >16/8 R
Ampicillin >16 R
Ampicillin/Sulbactam >16/8 R
Aztreonam >16 R
Cefazolin >16 R
Cefepime >16 R
Ceftazidime >16 R
Ceftriaxone >2 R
Ertapenem <=0.5 S
Ciprofloxacin >2 R
Gentamicin >8 R
Meropenem <=1 S
Nitrofurantoin-Urine Only <=32 S
Piperacillin/Tazobactam 64 I
Tetracycline >8 R
Tobramycin >8 R
Trimethoprim/Sulfamethoxazole > R
Imaging:
06/09/2025 CT abdomen/pelvis with contrast: no intestinal obstruction or free air. Unremarkable gallbladder. Enlarged prostate gland. Mild relatively diffuse thickening of the wall of the urinary bladder which may be due to underdistention or
bladder outlet obstruction.
06/09/2025 scrotal ultrasound: no findings to suggest testicular torsion. Small right epididymal head cyst. Small bilateral hydroceles. Relative slight increased blood flow to the right epididymis which could represent right epididymitis.
05/19/25 CT a/p: Possible mild colitis of the transverse colon versus findings due to limited distention. Limited evaluation without oral contrast. Moderate prostate hypertrophy.No evidence of abscess formation.
[2025-06-12 14:50] VITALS: BP 153/86
--- NOTE | 2025-06-12 16:06 | PN.CDI ---
CDI
- -
CDI:
Physician Documentation Request
Admit Date: 06/10/25 01:47
Dear Doctor,
Please review the following and provide your response in the progress notes.
Clinical Indicators:
Pt admitted with right orchitis/UTI/prostatitis on ertapenem
Urology progress notes 06/11 &06/12,' prostatitis.'
Clarify which of the following accurately represents the acuity of the (Prostatitis ).
Acute
Chronic
Acute on Chronic
Other ( please specify)
Use of terms such as suspected, likely, concern for, or probable (associated with a specific diagnosis that is being evaluated, monitored, or treated as if it exists) are acceptable and can be coded in the inpatient setting, when documented at the
time of discharge.
Thank you,
Elva Samano RN
CDI Specialist
[facility]
Please use your independent medical judgment in providing your response.
[2025-06-12 16:34] LABS: Urine Character Cloudy (Clear)
[2025-06-12 16:51] LABS: Urine Red Blood Cell 0-2 /HPF (0-2); Urine Squamous Cell 0-2 /LPF (Few); Urine White Cell 0-2 /HPF (0-5)
--- NOTE | 2025-06-12 19:15 | VATNOTE ---
MD order for PICC line with a notation that it may be a Midline. Physician note states that client will need 3-6 weeks IV abx. Attempted to place PICC line. Client expressed concerns about PICC line as it is a more invasive procedure. Explained that
a Midline's duration is 29 days and he may need abx longer. Client states he plays tennis everyday and would prefer a midline in his left arm so he can continue to play tennis and if he needs abx for longer than 29 days he would prefer to have the
midline removed and a new one placed for duration of treatment. Midline kit then obtained and attempted to place midline in left arm. Client then stated that the peripheral iv in his left arm had just been placed today and he prefers to get his IV
abx through that tonight and have midline placed tomorrow so it will be good for one additional day. Peripheral IV site checked for patency and primary care RN made aware of client's wishes.
--- NOTE | 2025-06-12 19:16 | W.PN.HOSP.TC ---
Addendum entered and electronically signed by Corinna Dahl MD 06/12/25 21:19:
I saw and evaluated the patient independently. I reviewed and discussed the resident�s note and agree with findings and plan as documented by Dr. Yeager.
GENERAL: well developed, well nourished, male in no apparent distress
HEENT: NC/AT
HEART: regular rate and rhythm, +S1, +S2
LUNGS : clear to auscultation bilaterally
ABDOM: soft, nontender, nondistended, + bowel sounds
EXT: no cyanosis, clubbing, or edema
NEUROLOGIC: grossly intact
: right scrotum swollen, fullness to touch
Right epididymoorchitis--Recent ESBL UTI and completed IV abx course--symptoms now with right testicular pain--urine culture positive again for ESBL E. coli- Ultrasound here with mildly increased blood flow consistent with epididymoorchitis--
Pelvis MRI: There is no evidence of prostatic abscess- Urology considering right orchiectomy v TURP for source control- Provide scrotal support--will need IV ABX again per ID
Meralgia Paresthetica -- lateral left leg numb--likely due to compression of lateral cutaneous nerve--should self resolve
BPH--Tamsulosin
DVT proph--SCDs
CODE STATUS-- Full code
Original Note:
Today's Communication/Plan
-
- Continue IV ertapenem and follow cultures, trend CBC and temperature
- Urology considering right orchiectomy v TURP for source control
- Provide scrotal support
Assessment / Plan
Assessment / Plan
Patient is a 64y M with PMH significant for recent admission for ESBL E coli bacteremia and septic shock following prostate biopsy who presents to ED (06/09/2025) complaining of R testicle pain and swelling x 24 hours. Patient was recently
admitted 05/19 - 05/25 due to septic shock following prostate biopsy. He was found to have ESBL E coli bacteremia and was treated with meropenem which was changed to ertapenem at discharge. He completed a course of IV abx on 06/03. His midline has
since been removed. Patient states that he was feeling well. He was urinating without difficulty and stopped his tamsulosin a few days ago. Last night, patient noted some discomfort in the R testicle. He thought that this might be mechanical in
nature; however, the pain did not resolve with change in tight clothing, etc. Today the pain and swelling seemed more intense and patient presented to the ED for further evaluation and treatment. Patient does states that he has experienced some
chills in the evenings over the past 2-3 nights. He has had no urinary symptoms of frequency, urgency, dysuria, hematuria, discharge, etc. He was diagnosed with epididymo-orchitis. Today, patient denies any nausea, vomiting, fever. He is worried
that his infection might have seeded and that he will constantly have to deal with this issue for the rest of his life.
#Right epididymoorchitis
#Recent ESBL UTI
- Presented with right testicular pain and swelling over 1 days time
- Had hospitalization in April with ESBL E. coli due to prostatitis after Bx
- Ultrasound here with mildly increased blood flow consistent with epididymoorchitis
- Was started on IV ertapenem upon arrival with recent ESBL; cultures positive for E. Coli.
- Continue IV ertapenem and follow cultures, trend CBC and temperature
- Pelvis MRI: There is no evidence of prostatic abscess
- Urology considering right orchiectomy v TURP for source control
- Provide scrotal support
#Meralgia Paresthetica
Due to compression of the lateral cutaneous nerve along L leg.
Would advise to wear less tight clothes.
Should resolve over time on its own.
#BPH
Addressed via Tamsulosin 0.4 mg PO Daily
Diet: Regular
Thromboprophylaxis: SCDs
CODE STATUS: Full code
Disposition: PT consulted
Anticipated Discharge: 24 - 48 hours
Subjective/Interval History
-
Date of Service: June 12, 2025
Patient is a 64y M with PMH significant for recent admission for ESBL E coli bacteremia and septic shock following prostate biopsy who presents to ED (06/09/2025) complaining of R testicle pain and swelling x 24 hours. Patient was recently
admitted 05/19 - 05/25 due to septic shock following prostate biopsy. He was found to have ESBL E coli bacteremia and was treated with meropenem which was changed to ertapenem at discharge. He completed a course of IV abx on 06/03. His midline has
since been removed. Patient states that he was feeling well. He was urinating without difficulty and stopped his tamsulosin a few days ago. Last night, patient noted some discomfort in the R testicle. He thought that this might be mechanical in
nature; however, the pain did not resolve with change in tight clothing, etc. Today the pain and swelling seemed more intense and patient presented to the ED for further evaluation and treatment. Patient does states that he has experienced some
chills in the evenings over the past 2-3 nights. He has had no urinary symptoms of frequency, urgency, dysuria, hematuria, discharge, etc. He was diagnosed with epididymo-orchitis. Today, patient denies any nausea, vomiting, fever. He is worried
that his infection might have seeded and that he will constantly have to deal with this issue for the rest of his life.
Objective Data
-
Labs:
Microbiology Results - Entire Visit
06/09/25 22:24 Urine Urine Culture - Final
Escherichia coli - ESBL
06/09/25 20:59 Blood/Venous Blood Culture - Preliminary
No Growth in 48 hours- Final report to follow
06/10/25 11:09 Urine Chlamydia trachomatis (PCR) - Final
06/10/25 11:09 Urine Neisseria gonorrhoeae (PCR) - Final
Other lab results - Last 24 hours
06/12/25 Range/Units
16:11
Urine Color Yellow
Urine Clarity Cloudy (Clear)
Urine pH 8.0 (5.0-9.0)
Ur Specific Collins 1.015 (<1.030)
Urine Ketones Negative (Negative)
Ur Occult Blood Reflex Negative (Negative)
Urine Nitrite (Reflex) Negative (Negative)
Urine Bilirubin Negative (Negative)
Urine Urobilinogen Negative (Neg - 1+)
Leukocyte Esterase Rfl Negative (Negative)
Urine RBC 0-2 (0-2) /HPF
Urine WBC (Reflex) 0-2 (0-5) /HPF
Ur Squamous Epith Cells 0-2 (Few) /LPF
Amorphous Crystals Seen
Urine Bacteria (Reflex) Many A (Negative)
Urine Glucose Negative (Negative)
Urine Albumin (Reflex) 1+ A (Neg - Trace)
Vital Signs:
Vital Signs
Temp Pulse Resp BP Pulse Ox
97.5 F 92 16 153/86 98
06/12/25 14:50 06/12/25 14:50 06/12/25 14:50 06/12/25 14:50 06/12/25 14:50
I&O
06/11/25 06/12/25 06/13/25
06:59 06:59 06:59
Intake Total 1020 / 1020 540 / 540 1440 / 1440
Balance 1020 / 1020 540 / 540 1440 / 1440
Scrotal U/S (06/09/2025): No findings to suggest testicular torsion. Small right epididymal head cyst. Small bilateral hydroceles, right greater than left. Relative slight increased blood flow to the right epididymis which could represent right
epididymitis.
Abdomen/Pelvis CT (06/09/2025): No intestinal obstruction or free air. Unremarkable appendix. Unremarkable gallbladder. Borderline prominent extrahepatic biliary tract, stable, likely within the limits of normal. Suggest correlation with LFTs.
Suspected subcentimeter cystic focus in the pancreatic head, unchanged. Recommend MRI in 6 months to confirm stability. Enlarged prostate gland. At least mild relative diffuse thickening of the wall the urinary bladder which may be due to
underdistention or bladder outlet obstruction. Other etiology such as cystitis cannot be entirely excluded.
Pelvis MRI (06/12/2025): There is no evidence of prostatic abscess. The peripheral zones are heterogeneous which may related to postprocedural change although prostatitis would be difficult to exclude. The scrotum appears diffusely thickened and
enhancing suggestive of scrotal cellulitis. Additionally the right epididymis appears mildly asymmetrically thickened and enhancing. Additionally the right testicle appears mildly hyperenhancing. Findings are suggestive of right-sided
epididymoorchitis. Small bilateral hydroceles.
Review of Systems
-
History Source: Patient
Genitourinary: Reports Other (Right scrotal swelling and tenderness)
Musculoskeletal: Reports Other (Left sided Meralgia Paresthetica)
Physical Exam
-
General: Well Developed, Well Nourished and Comfortable
Genito-urinary: Other (right testis swelling w/o significant tenderness, no fluctuance, no erythema or cellulitis)
Musculoskeletal: Other (Nerve pain running along hip to lower forefoot on left side. )
Neuro: AO x 3
Psych: Calm and Intact Judgement/Insight
Data Reviewed
-
CT Scan: Report Reviewed by me
Ultrasound: Report Reviewed by me
MRI: Report Reviewed by me
Labs: Labs Reviewed by me and Discussed with Physician
[2025-06-12 23:16] VITALS: BP 119/65
[2025-06-13] MEDS: INVANZ 60 MG IV ×2 (00:08→20:11)
[2025-06-13 07:00] VITALS: BP 130/76
[2025-06-13] MEDS: FLOMAX 0.4 MG PO (08:13)
[2025-06-13] MEDS: CRESTOR 10 MG PO (08:13)
[2025-06-13 08:33] LABS: Hematocrit 38.6 % (39.0-52.0); Hemoglobin 12.0 g/dL (13.0-18.0); Mean Corp Hgb Conc. 31.1 g/dL (33.0-37.0); Mean Corpuscular Volume 83.7 fL (80.0-94.0); Nucleated Red Blood Cells % 0 % (-); Platelet Count 245 10^3/uL (130-400); Red Cell Dist. Width 13.2 % (11.5-14.5)
[2025-06-13 09:56] LABS: ALT (SGPT) 49 U/L (0-50); AST (SGOT) 35 U/L (17-59); Albumin 3.6 g/dl (3.5-5.0); Alkaline Phosphatase 127 U/L (38-126); Blood Urea Nitrogen 10 mg/dl (9-20); Calcium 8.8 mg/dl (8.4-10.2); Carbon Dioxide 23 mmol/L (22-30); Chloride 105 mmol/L (98-107); Estimated Creatinine Clearance 68 ml/min; Glucose 107 mg/dl (70-99); Magnesium 2.2 mg/dl (1.6-2.3); Potassium 4.5 mmol/L (3.5-5.1); Sodium 134 mmol/L (135-145); Total Protein 6.6 g/dl (6.3-8.2); eGFR > 60.00
--- NOTE | 2025-06-13 10:56 | W.PN.URO.CBU ---
Today's Communication / Plan
-
No radiographic evidence of prostate abscess
Cleared for discharge home from [facility]
Assessment / Plan
-
ESBL UTi s/p prostate bx
readmitted with right orchitis/UTI
improved with antibx
reviewed options/potential outcomes
plan to continue antibx for ESBL E. coli
---
Cleared for discharge from [facility]
Diagnosis
-
Date of Service: June 13, 2025
-
Patient Diagnosis:
esbl right epididymorchitis and UTI/acute prostatitis
Subjective
-
Feels well
No abdominal pain
No voiding dysfunction
Objective
-
Vital Signs
Temp Pulse Resp BP Pulse Ox
97.6 F 84 17 130/76 99
06/13/25 07:00 06/13/25 07:00 06/13/25 07:00 06/13/25 07:00 06/13/25 07:00
Intake and Output
06/12/25 06/13/25 06/14/25
06:59 06:59 06:59
Intake Total 540 / 540 1560 / 1560
Balance 540 / 540 1560 / 1560
Intake:
Oral fluids 480 / 480 1560 / 1560
IV piggybacks 60 / 60
Other:
Number of approximated MODERATE 3 2
amounts of urine
Laboratory Results
06/13/25 07:56
06/13/25 07:56
Pelvic MRI 06/13/25: No evidence of prostatic abscess. Inflammatory changes bilaterally c/w biopsy/infection
Review of Systems
-
Constitutional: Fatigue
Respiratory: No Symptoms
Cardiac: No Symptoms
Abdomen/GI: No Symptoms
: No Symptoms
Neurological: No Symptoms
Physical Exam
-
General - well developed, well nourished, no acute distress
Abdomen - soft, non-tender, no CVAT
Genitalia - swollen right testis/epididymis; minimally tender, diminished scrotal swelling, no erythema
Neuro - AOx3, no motor deficits
--- NOTE | 2025-06-13 11:02 | CM ---
Addendum entered by Radha Pineda 06/13/25 15:09:
Per [facility]; patient listed as [facility]GLE and she will call back to confirm that patient has everything completed in their system. CM will continue to follow for discharge planning needs.
Addendum entered by Radha Pineda 06/13/25 14:58:
Patient case accepted by [facility] and he OK to have [facility]. CM updated IV team and to physician. Patient pending insurance confirmation of cost/acceptance. CM will continue to follow for discharge planning needs.
Plan; home with [facility].
Original Note:
Faxed clinical information including script to [facility] they indicated that patient case had been closed and need updated script and orders to reopen. CM spoke with patient and plan is for discharge home with to transport and patient
to have [facility] for IV medication. Patient pending Mid line. CM will continue to follow for discharge planning needs.
Plan; home with [facility]
[2025-06-13 15:00] VITALS: BP 134/78
--- NOTE | 2025-06-13 16:11 | W.DCSUMMARY ---
Addendum entered and electronically signed by Corinna Dahl MD 06/13/25 21:01:
Read, reviewed, and agree. See same day progress note for additional details. Time spent coordinating care, DC planning, review of DC plan of care with resident, transition of care, review of records in EMR, med rec, consults, notes, d/w
consultants, nursing, family, and CM = 35 minutes
Original Note:
Discharge Summary
Discharge Data
Date of Admission: 06/10/25
Date of Discharge: 06/13/25
Total time spent discharging patient (in min): 35
-
Pending Results: No
Hospital Course
Patient is a 64y M with PMH significant for recent admission for ESBL E coli bacteremia and septic shock following prostate biopsy who presents to ED (06/09/2025) complaining of R testicle pain and swelling x 24 hours. Patient was recently
admitted 05/19 - 05/25 due to septic shock following prostate biopsy. He was found to have ESBL E coli bacteremia and was treated with meropenem which was changed to ertapenem at discharge. He completed a course of IV abx on 06/03. His midline has
since been removed. Patient states that he was feeling well. He was urinating without difficulty and stopped his tamsulosin a few days ago. The night of the , patient noted some discomfort in the R testicle. He thought that this might be
mechanical in nature; however, the pain did not resolve with change in tight clothing, etc. A few hours later the pain and swelling seemed more intense and patient presented to the ED for further evaluation and treatment. Patient does states that he
had experienced some chills in the evenings over the past 2-3 nights. He has had no urinary symptoms of frequency, urgency, dysuria, hematuria, discharge, etc. He was diagnosed with epididymo-orchitis. Has been doing well on IV ertapenem to treat
his culture positive for E. Coli. CBC is trending well. Temperature is afebrile. Recent MRI of the Pelvis showed there was no evidence of prostatic abscess. Today, patient denies any nausea, vomiting, fever. He expressed his wish to have a midline
on being sent home and not a picc line. He also requested to have his Abx given to him tonight at 9 PM so he can have it at 9 PM tomorrow at home. Explained why we would be sending him home without repeating urine cultures right away. Future
management with right orchiectomy v TURP for source control if infection recurs was discussed. Patient was also advised that his Meralgia Paresthetica was probably due to laying in bed for so long and putting pressure on his lateral cutaneous nerve.
He was reassured that it resolves on its own over time. Can be D/C today once home IV Abx are set up.
Discharge Plan
-
Patient Disposition: Home with Home Care
Discharge Diagnosis/Procedures: Epididymoorchitis
Meralgia Parasthetica
BPH
Condition: Fair
Diet: No restrictions
Activity: As tolerated
Driving Restrictions: As prior to admission
Bathing Restrictions: None
Others Tests: Follow up urine culture after full antibiotic regimen in 3 weeks with ID
Other Services: [facility]
Activity Restrictions/Additional Instructions:
As tolerated.
Referrals:
David Murray, DO [Active, Infectious Diseases]
Referral Note: Repeat urine culture in 3-4 weeks after full Abx regimen.
UNKNOWN,NO INTERVIEW [Family Provider] - in less than 1 week
Additional Discharge Medication Instructions: Please follow up with ID in 3-4 weeks and do repeat urine culture at this time.
Prescriptions:
New
tamsulosin 0.4 mg Capsule
0.4 mg PO DAILY Qty: 30 0RF
Ertapenem [Invanz] 1000 MG
0.9% Sodium Chloride [Nss] 50 ML
120 mls/hr IV Q24H
Ordered By: Corinna Dahl MD
Last Taken: 06/13/25 20:11 60 mls
Continued
vitamin B complex Capsule
1 cap PO DAILY
rosuvastatin 10 mg Tablet
10 mg PO DAILY
chondroitin sulfate A sodium 400 mg Capsule
400 mg PO DAILY
ascorbic acid (vitamin C) [Vitamin C] 500 mg Tablet
500 mg PO DAILY
Discharge Orders:
Discharge Patient (As Directed); Ordered 06/13/25
Ordered By: Simon Corbin
Discharge Date and Time
Print Language: HEBREW
[2025-06-13] MEDS: PROTONIX 40 MG PO (19:38)
[2025-06-13 20:27] VITALS: BP 142/75
--- NOTE | 2025-06-13 20:32 | W.PN.HOSP.TC ---
Addendum entered and electronically signed by Corinna Dahl MD 06/13/25 20:57:
I saw and evaluated the patient independently. I reviewed and discussed the resident�s note and agree with findings and plan as documented by Dr. Yeager.
GENERAL: well developed, well nourished, male in no apparent distress
HEENT: NC/AT
HEART: regular rate and rhythm, +S1, +S2
LUNGS : clear to auscultation bilaterally
ABDOM: soft, nontender, nondistended, + bowel sounds
EXT: no cyanosis, clubbing, or edema
NEUROLOGIC: grossly intact
: right scrotum swollen, fullness to touch much improved
Right epididymoorchitis--Recent ESBL UTI and completed IV abx course--symptoms now with right testicular pain--urine culture positive again for ESBL E. coli- Ultrasound here with mildly increased blood flow consistent with epididymoorchitis-- Pelvis
MRI: There is no evidence of prostatic abscess--will need IV ABX again per ID--apprec ID and urology
Meralgia Paresthetica -- lateral left leg numb--likely due to compression of lateral cutaneous nerve--should self resolve
BPH--Tamsulosin
DVT proph--SCDs
CODE STATUS-- Full code
OK for d/c
Original Note:
Today's Communication/Plan
-
Patient is cleared for discharge today.
Protonix 20 mg PRN (30 tabs) was prescribed for patient for at home use at his pharmacy in [place].
Continue IV Abx treatment full regimen at home
Consult ID after regimen completed in 3-4 weeks for repeat urine culture
Assessment / Plan
Assessment / Plan
Patient is a 64y M with PMH significant for recent admission for ESBL E coli bacteremia and septic shock following prostate biopsy who presents to ED (06/09/2025) complaining of R testicle pain and swelling x 24 hours. Patient was recently
admitted 05/19 - 05/25 due to septic shock following prostate biopsy. He was found to have ESBL E coli bacteremia and was treated with meropenem which was changed to ertapenem at discharge. He completed a course of IV abx on 06/03. He has had no
urinary symptoms of frequency, urgency, dysuria, hematuria, discharge, etc. He was diagnosed with epididymo-orchitis. Has been doing well on IV ertapenem to treat his culture positive for E. Coli. CBC is trending well. Temperature is afebrile.
Recent MRI of the Pelvis showed there was no evidence of prostatic abscess. Today, patient denies any nausea, vomiting, fever. He expressed his wish to have a midline on being sent home and not a picc line. He also requested to have his Abx given
to him tonight at 9 PM so he can have it at 9 PM tomorrow at home. Explained why we would be sending him home without repeating urine cultures right away. Future management with right orchiectomy v TURP for source control if infection recurs was
discussed. Patient was also advised that his Meralgia Paresthetica was probably due to laying in bed for so long and putting pressure on his lateral cutaneous nerve. He was reassured that it resolves on its own over time. Can be D/C today once home
IV Abx are set up.
#Right epididymoorchitis
Pelvis MRI shows no radiographic evidence of prostate abscess
Responding to IV Ertapenem
Cleared for discharge home
#Meralgia Paresthetica
Due to compression of the lateral cutaneous nerve along L leg.
Probably due to long periods of time spent on side in bed.
Should resolve over time on its own.
#BPH
Addressed via Tamsulosin 0.4 mg PO Daily
Diet: Regular
Thromboprophylaxis: SCDs
CODE STATUS: Full code
Disposition: PT consulted
Anticipated Discharge: Today
Subjective/Interval History
-
Date of Service: June 13, 2025
Patient is a 64y M with PMH significant for recent admission for ESBL E coli bacteremia and septic shock following prostate biopsy who presents to ED (06/09/2025) complaining of R testicle pain and swelling x 24 hours. Patient was recently
admitted 05/19 - 05/25 due to septic shock following prostate biopsy. He was found to have ESBL E coli bacteremia and was treated with meropenem which was changed to ertapenem at discharge. He completed a course of IV abx on 06/03. He has had no
urinary symptoms of frequency, urgency, dysuria, hematuria, discharge, etc. He was diagnosed with epididymo-orchitis. Has been doing well on IV ertapenem to treat his culture positive for E. Coli. CBC is trending well. Temperature is afebrile.
Recent MRI of the Pelvis showed there was no evidence of prostatic abscess. Today, patient denies any nausea, vomiting, fever. He expressed his wish to have a midline on being sent home and not a picc line. He also requested to have his Abx given
to him tonight at 9 PM so he can have it at 9 PM tomorrow at home. Explained why we would be sending him home without repeating urine cultures right away. Future management with right orchiectomy v TURP for source control if infection recurs was
discussed. Patient was also advised that his Meralgia Paresthetica was probably due to laying in bed for so long and putting pressure on his lateral cutaneous nerve. He was reassured that it resolves on its own over time. Can be D/C today once home
IV Abx are set up.
Objective Data
-
Labs:
Laboratory Results
06/13/25
07:56
WBC 6.0
Hgb 12.0 L
Hct 38.6 L
Plt Count 245
Sodium 134 L
Potassium 4.5
Chloride 105
Carbon Dioxide 23
BUN 10
Creatinine 1.0
Glucose 107 H
Calcium 8.8
Total Bilirubin 0.5
AST 35
ALT 49
Alkaline Phosphatase 127 H
Vital Signs:
Vital Signs
Temp Pulse Resp BP Pulse Ox
98.2 F 64 16 142/75 98
06/13/25 20:27 06/13/25 20:27 06/13/25 20:27 06/13/25 20:27 06/13/25 20:27
I&O
06/12/25 06/13/25 06/14/25
06:59 06:59 06:59
Intake Total 540 / 540 1560 / 1560 120 / 120
Balance 540 / 540 1560 / 1560 120 / 120
MR Pelvis W/o & With Contrast: There is no evidence of prostatic abscess. The peripheral zones are heterogeneous which may related to postprocedural change although prostatitis would be difficult to exclude. The scrotum appears diffusely thickened
and enhancing suggestive of scrotal cellulitis. Additionally the right epididymis appears mildly asymmetrically thickened and enhancing. Additionally the right testicle appears mildly hyperenhancing. Findings are suggestive of right-sided
epididymoorchitis. Small bilateral hydroceles.
Review of Systems
-
History Source: Patient
All other systems: Reviewed and negative
Respiratory: Reports Other (Mild exertional SOB)
Musculoskeletal: Reports Other (Nerve pain starting from Left Greater Trochanteric area that moves down the leg. )
Physical Exam
-
General: Well Developed, Well Nourished and No Apparent Distress
HEENT: Normocephalic and Atraumatic
Respiratory: Clear to Auscultation
Cardiac: Regular Rhythm and S1/S2
Breast: Deferred by me
GI: Soft, Nontender, Nondistended and Normal Bowel Sounds
Genito-urinary: No Costovertebral Tender
Musculoskeletal: No Clubbing, No Cyanosis, No Edema and Other (Pain running across the lateral portion of the left leg. )
Skin: Warm and Dry
Neuro: AO x 3
Psych: Calm and Intact Judgement/Insight
Data Reviewed
-
CT Scan: Report Reviewed by me and Discussed with Physician
Ultrasound: Report Reviewed by me and Discussed with Physician
MRI: Report Reviewed by me and Discussed with Physician
Labs: Labs Reviewed by me and Discussed with Physician
== END 2025-06-13 21:10 | disposition home or self-care (01) | DRG 728 ==
LOC: 4 WEST ACU 01:47
PROVIDERS: Internal Medicine; ADMITTING PHYSICIAN Hospitalist; ATTENDING PHYSICIAN Internal Medicine; CONSULT PHYSICIAN Internal Medicine Infectious Disease; CONSULT PHYSICIAN Specialist; EMERGENCY PHYSICIAN Emergency Medicine
DX: N45.3 Epididymo-orchitis (principal); N39.0 Urinary tract infection, site not specified; N41.0 Acute prostatitis; Z16.12 Extended spectrum beta lactamase (ESBL) resistance; E78.5 Hyperlipidemia, unspecified; G57.10 Meralgia paresthetica, unspecified lower limb; Z87.440 Personal history of urinary (tract) infections; B96.20 Unspecified Escherichia coli [E. coli] as the cause of diseases classified elsewhere
CPT/HCPCS: 72197; 74177; 76870; 80048; 80053; 81003; 81015; 83605; 83735; 84132; 85025; 85027; 87040; 87077; 87086; 87186; 87491; 87591; 93976; 96365; 97162; 99285; A9575; J1335; Q9967

== ENCOUNTER 2025-06-22 10:01 | Outpatient (RCR) | payer OTHER, SELFPAY ==
[2025-06-20 14:36] VITALS: BP 129/78
[2025-06-20] MEDS: INVANZ 60 MG IV (14:43)
[2025-06-21 10:45] VITALS: BP 146/83
[2025-06-21] MEDS: INVANZ 60 MG IV (11:04)
[2025-06-22 10:28] VITALS: BP 139/83
[2025-06-22] MEDS: INVANZ 60 MG IV (10:32)
== END 2025-06-22 11:04 | disposition home or self-care (01) ==
LOC: OID 10:01
PROVIDERS: ATTENDING PHYSICIAN Internal Medicine Infectious Disease
DX: N45.3 Epididymo-orchitis (principal)
CPT/HCPCS: 96365; J1335

== ENCOUNTER → 2025-07-06 11:53 | Outpatient (REF) | payer OTHER, SELFPAY | LOC: RAD 11:53 | PROVIDERS: ATTENDING PHYSICIAN Internal Medicine | DX: R06.09 Other forms of dyspnea (principal); R06.02 Shortness of breath | CPT/HCPCS: 71046 ==

== ENCOUNTER 2025-07-10 14:19 | Emergency (ER) | payer OTHER, SELFPAY ==
[2025-07-10 14:24] VITALS: BP 131/82
--- NOTE | 2025-07-10 17:02 | ED.GENMED ---
History of Present Illness
General
Chief Complaint: Catheter/Tube Problem
Source: patient
Exam Limitations: none
Time Seen by Provider: 07/10/25 15:50
Nursing documentation reviewed up to this point in time: agreed with
History of Present Illness
History of Present Illness:
Patient is a 65-year-old male who presents to the emergency department for replacement of midline catheter. Patient states that he is currently undergoing 6 weeks of IV antibiotic therapy for cystitis/epididymo-orchitis. He is currently on IV
ertapenem. He has 10 days remaining in his scheduled course however states his midline catheter is 28 days old and needs to be replaced. He denies any fever. No surrounding redness or drainage from midline catheter site. No chest pain or
shortness of breath.
Patient was discharged from the hospital on 06/13/2025. He has been following with Dr. Murray with infectious disease and Dr. Mascorro with urology outpatient.
Patient presents today only for midline catheter exchange. No other concerns.
Review of Systems
Review of Systems
Allergies reviewed?: Yes
All Other Systems: ROS reviewed and negative except as documented in HPI and ROS
Phy Exam
Physical Exam
Physical Exam:
Vitals: Patient's vital signs are stable. Afebrile
General: Patient is very well-appearing, in no distress.
Skin: Midline catheter in place in left upper arm without surrounding erythema, warmth, or tenderness. No bleeding from site.
Head: Normocephalic, atraumatic
Throat: Protecting airway
Neck: Normal ROM, no cervical spine tenderness
Cardiac: Regular rate
Pulm: No apparent respiratory distress
Extremities: Midline catheter in left upper arm. Palpable left radial pulse. LUE neurovascularly intact
Neuro: Grossly intact
Psychiatric: Normal affect.
Course
Vital Signs
Initial and Last Documented VS:
Initial Vital Signs
Temp Pulse Resp BP Pulse Ox
98.1 F 96 16 131/82 98
07/10/25 14:24 07/10/25 14:24 07/10/25 14:24 07/10/25 14:24 07/10/25 14:24
Last Documented Vital Signs
Temp Pulse Resp BP Pulse Ox
98.1 F 96 16 131/82 98
07/10/25 14:24 07/10/25 14:24 07/10/25 14:24 07/10/25 14:24 07/10/25 17:02
MDM/Problems Addressed
Differential Diagnosis Includes:
Not limited to: Midline catheter replacement, etc.
MDM/Problems Addressed:
65-year-old male presenting for midline catheter exchange. Currently on six weeks of IV ertepenam to treat recurrent UTI/epididymo-orchitis. No infectious symptoms or erythema/tenderness surrounding midline catheter site today.
Prior to my evaluation � IV team was down to emergency department who successfully replaced midline catheter in left upper arm. There is no bleeding or evidence of surrounding cellulitis. He is otherwise well appearing and nontoxic.
Stable for discharge home with continued outpatient follow-up with infectious disease and urology. Return precautions discussed including any signs of infection. Patient comfortable with plan.
Chronic conditions affecting care:
Recent cystitis/epididymoorchitis on IV ABX
Acute Exacerbation and/or Progression of Chronic Illness:
N/A
*Pulse Oximetry
SaO2: 98
Oxygen Mode of Delivery: Room air
Patient hypoxic: no
*EKG
Interpreted by ED Provider?: NA
*Base Ply Hand Interpretation
Rate: Base Ply Hand- N/A
*Critical Care Note
Total Time (30-74mins, 75-104mins- exclusive of procedures): Not Applicable
Data Reviewed
Review of Other/Old Records Reveals: Discharge Summary (Discharge summary from 06/13/25 after admission for acute epididymo-orchitis/UTI)
ED Attending Note
-
Portions of this chart may have been created with voice recognition software.� Occasional wrong word or��sound alike� substitutions may have occurred due to the inherent limitations of voice recognition software.
Discharge Plan
Departure
Patient Disposition: Home (Routine Discharge)
Date of Disposition: 07/10/25
Time of Disposition: 16:17
Patient with high blood pressure during this ER visit?: Yes
Condition: Good
Discharge Problem:
Midline catheter exchnage
Instructions: How to care for a midline IV catheter, Midline IV catheter insertion
Prescriptions:
No Action
vitamin B complex Capsule
1 cap PO DAILY
rosuvastatin 10 mg Tablet
10 mg PO DAILY
chondroitin sulfate A sodium 400 mg Capsule
400 mg PO DAILY
ascorbic acid (vitamin C) [Vitamin C] 500 mg Tablet
500 mg PO DAILY
Ertapenem [Invanz] 1000 MG
0.9% Sodium Chloride [Nss] 50 ML
120 mls/hr IV Q24H
Ordered By: Corinna Dahl MD
Last Taken: Unknown
Saccharomyces boulardii [Florastor] 250 mg Capsule
500 mg PO BID
tamsulosin [Flomax] 0.4 mg Capsule
0.4 mg PO DAILY
Referrals:
Tank Mascorro MD [Active, Urology] - Keep scheduled appt
David Murray DO [Active, Infectious Diseases] - Keep scheduled appt
Activity Restrictions/Additional Instructions:
RETURN TO THE EMERGENCY DEPARTMENT ANY FEVER, CHILLS, SIGNIFICANT REDNESS OR PAIN AROUND MIDLINE CATHETER SITE, BLEEDING FROM SITE, OR ANY OTHER CONCERNS
- As discussed, your midline catheter was exchanged while in the emergency department today. Please complete course of antibiotics as directed.
- Follow-up with infectious disease and urology as scheduled for further evaluation and/or management
Monitor your symptoms closely and return to the emergency department with any acute worsening/new symptoms or any other concerns
Interventions
Interventions:
*Risk Screen - Suicide Last Done: 07/10/25 14:24
*Neglect/Abuse Screening Last Done: 07/10/25 14:24
*Nursing Disposition Last Done: 07/10/25 16:21
Discharge Date and Time
Discharge Date/Time: 07/10/25 16:21
Print Language: ROMANIAN
== END 2025-07-10 16:21 | disposition home or self-care (01) ==
LOC: EMR 14:19
PROVIDERS: EMERGENCY PHYSICIAN Student in an Organized Health Care Education/Training Program; FAMILY PHYSICIAN Internal Medicine
DX: Z45.2 Encounter for adjustment and management of vascular access device (principal); N45.3 Epididymo-orchitis; Z79.2 Long term (current) use of antibiotics
CPT/HCPCS: 36584; 99283

== ENCOUNTER 2025-07-18 06:28 | Outpatient (RCR) | payer OTHER, SELFPAY | END 2025-07-18 23:59 | disposition home or self-care (01) | LOC: RPT 06:28 | PROVIDERS: ATTENDING PHYSICIAN Internal Medicine | DX: R53.1 Weakness (principal); Z73.6 Limitation of activities due to disability; R53.83 Other fatigue; M79.652 Pain in left thigh; R20.0 Anesthesia of skin; M54.9 Dorsalgia, unspecified | CPT/HCPCS: 97110; 97163 ==

== ENCOUNTER 2025-07-20 09:07 | Outpatient (RCR) | payer OTHER, SELFPAY ==
[2025-06-23 07:58] VITALS: BP 119/82; BMI 24.3
[2025-06-23] MEDS: INVANZ 60 MG IV (08:07)
[2025-06-24 07:35] VITALS: BP 114/75
[2025-06-24] MEDS: INVANZ 60 MG IV (07:40)
[2025-06-25 10:49] VITALS: BP 111/76
[2025-06-25] MEDS: INVANZ 60 MG IV (11:00)
[2025-06-25 11:02] LABS: Hematocrit 39.9 % (39.0-52.0); Hemoglobin 13.3 g/dL (13.0-18.0); Mean Corp Hgb Conc. 33.3 g/dL (33.0-37.0); Mean Corpuscular Volume 80.9 fL (80.0-94.0); Platelet Count 283 10^3/uL (130-400); Red Cell Dist. Width 13.1 % (11.5-14.5)
[2025-06-25 11:59] LABS: Blood Urea Nitrogen 15 mg/dl (9-20); Calcium 9.3 mg/dl (8.4-10.2); Carbon Dioxide 25 mmol/L (22-30); Chloride 104 mmol/L (98-107); Estimated Creatinine Clearance 68 ml/min; Glucose 98 mg/dl (70-99); Potassium 4.4 mmol/L (3.5-5.1); Sodium 137 mmol/L (135-145); eGFR > 60.00
[2025-06-26 11:35] VITALS: BP 114/66
[2025-06-26] MEDS: INVANZ 60 MG IV (11:50)
[2025-06-27] MEDS: INVANZ 60 MG IV (09:36)
[2025-06-27 09:39] VITALS: BP 121/71
[2025-06-28 10:10] VITALS: BP 125/75
[2025-06-28] MEDS: INVANZ 60 MG IV (10:19)
[2025-06-29] MEDS: INVANZ 60 MG IV (09:36)
[2025-06-30] MEDS: INVANZ 60 MG IV (07:47)
[2025-06-30 07:50] VITALS: BP 123/77
[2025-07-01] MEDS: INVANZ 60 MG IV (07:55)
[2025-07-01 07:57] VITALS: BP 116/78
[2025-07-02 09:45] VITALS: BP 118/80
[2025-07-02 09:46] LABS: Hematocrit 39.8 % (39.0-52.0); Hemoglobin 13.0 g/dL (13.0-18.0); Mean Corp Hgb Conc. 32.7 g/dL (33.0-37.0); Mean Corpuscular Volume 80.4 fL (80.0-94.0); Platelet Count 205 10^3/uL (130-400); Red Cell Dist. Width 13.1 % (11.5-14.5)
[2025-07-02] MEDS: INVANZ 60 MG IV (09:47)
[2025-07-02 10:30] LABS: Blood Urea Nitrogen 13 mg/dl (9-20); Calcium 9.1 mg/dl (8.4-10.2); Carbon Dioxide 24 mmol/L (22-30); Chloride 104 mmol/L (98-107); Estimated Creatinine Clearance 68 ml/min; Glucose 113 mg/dl (70-99); Potassium 4.1 mmol/L (3.5-5.1); Sodium 136 mmol/L (135-145); eGFR > 60.00
[2025-07-03 09:30] VITALS: BP 121/77
[2025-07-03] MEDS: INVANZ 60 MG IV (09:32)
[2025-07-04 10:08] VITALS: BP 111/73
[2025-07-04] MEDS: INVANZ 60 MG IV (10:15)
[2025-07-05 10:45] VITALS: BP 118/71
[2025-07-05] MEDS: INVANZ 60 MG IV (11:08)
[2025-07-06 10:26] VITALS: BP 113/66
[2025-07-06] MEDS: INVANZ 60 MG IV (10:38)
[2025-07-07] MEDS: INVANZ 60 MG IV (07:53)
[2025-07-07 08:01] VITALS: BP 129/70
[2025-07-08 07:20] VITALS: BP 126/78
[2025-07-08] MEDS: INVANZ 60 MG IV (07:30)
[2025-07-09] MEDS: INVANZ 60 MG IV (09:53)
[2025-07-09 10:02] VITALS: BP 137/81
[2025-07-10] MEDS: INVANZ 60 MG IV (11:00)
[2025-07-10 11:01] VITALS: BP 145/66
[2025-07-11 10:25] VITALS: BP 134/76
[2025-07-11] MEDS: INVANZ 60 MG IV (10:48)
[2025-07-12 10:58] VITALS: BP 133/77
[2025-07-12] MEDS: INVANZ 60 MG IV (11:06)
[2025-07-13 10:18] VITALS: BP 125/73
[2025-07-13] MEDS: INVANZ 60 MG IV (10:21)
[2025-07-14 07:32] VITALS: BP 99/64
[2025-07-14] MEDS: INVANZ 60 MG IV (07:46)
[2025-07-15 07:30] VITALS: BP 118/77
[2025-07-15] MEDS: INVANZ 60 MG IV (07:30)
[2025-07-16] MEDS: INVANZ 60 MG IV (10:24)
[2025-07-16 10:33] LABS: Hematocrit 39.6 % (39.0-52.0); Hemoglobin 13.1 g/dL (13.0-18.0); Mean Corp Hgb Conc. 33.1 g/dL (33.0-37.0); Mean Corpuscular Volume 80.3 fL (80.0-94.0); Platelet Count 215 10^3/uL (130-400); Red Cell Dist. Width 13.0 % (11.5-14.5)
[2025-07-16 11:01] LABS: Blood Urea Nitrogen 19 mg/dl (9-20); Calcium 8.9 mg/dl (8.4-10.2); Carbon Dioxide 26 mmol/L (22-30); Chloride 104 mmol/L (98-107); Estimated Creatinine Clearance 68 ml/min; Glucose 89 mg/dl (70-99); Potassium 4.4 mmol/L (3.5-5.1); Sodium 136 mmol/L (135-145); eGFR > 60.00
[2025-07-17 09:15] VITALS: BP 116/68
[2025-07-17] MEDS: INVANZ 60 MG IV (09:29)
[2025-07-18 10:27] VITALS: BP 133/71
[2025-07-18] MEDS: INVANZ 60 MG IV (10:37)
[2025-07-19] MEDS: INVANZ 60 MG IV (07:05)
[2025-07-19 07:31] VITALS: BP 113/65
[2025-07-20 09:27] VITALS: BP 123/78
[2025-07-20] MEDS: INVANZ 60 MG IV (09:32)
== END 2025-07-22 23:59 | disposition home or self-care (01) ==
LOC: OID 09:07
PROVIDERS: ATTENDING PHYSICIAN Internal Medicine Infectious Disease
DX: N45.3 Epididymo-orchitis (principal)
CPT/HCPCS: 96365; 36415; 80048; 85025; J1335

== ENCOUNTER → 2025-07-26 13:40 | Outpatient (REF) | payer OTHER, SELFPAY | LOC: RCS 13:40 | PROVIDERS: ATTENDING PHYSICIAN Internal Medicine Cardiovascular Disease; FAMILY PHYSICIAN Internal Medicine; OTHER PHYSICIAN Specialist; REFERRING PHYSICIAN Internal Medicine Infectious Disease | DX: R06.02 Shortness of breath (principal) | CPT/HCPCS: 93017; 93350 ==

== ENCOUNTER 2025-07-28 02:46 | Inpatient (IN) | payer OTHER, SELFPAY ==
[2025-07-27 22:29] VITALS: BP 132/78
[2025-07-27 22:40] LABS: Urine Character Clear (Clear)
[2025-07-27 22:50] LABS: Urine Squamous Cell 0-2 /LPF (Few)
[2025-07-27 22:51] LABS: Urine White Cell >100 /HPF (0-5)
[2025-07-28] VITALS (7 sets, daily range): BP systolic 111–127; BP diastolic 61–85; BMI 25.0
[2025-07-28 00:51] LABS: Hematocrit 42.2 % (39.0-52.0); Hemoglobin 14.1 g/dL (13.0-18.0); Mean Corp Hgb Conc. 33.4 g/dL (33.0-37.0); Mean Corpuscular Volume 78.9 fL (80.0-94.0); Nucleated Red Blood Cells % 0 % (-); Platelet Count 210 10^3/uL (130-400); Red Cell Dist. Width 13.7 % (11.5-14.5)
[2025-07-28 01:15] LABS: ALT (SGPT) 37 U/L (0-50); AST (SGOT) 32 U/L (17-59); Albumin 5.0 g/dl (3.5-5.0); Alkaline Phosphatase 82 U/L (38-126); Blood Urea Nitrogen 14 mg/dl (9-20); Calcium 9.4 mg/dl (8.4-10.2); Carbon Dioxide 26 mmol/L (22-30); Chloride 102 mmol/L (98-107); Glucose 113 mg/dl (70-99); Magnesium 1.8 mg/dl (1.6-2.3); Potassium 4.3 mmol/L (3.5-5.1); Sodium 137 mmol/L (135-145); Total Protein 8.3 g/dl (6.3-8.2); eGFR > 60.00
--- NOTE | 2025-07-28 02:06 | ED.GENMED ---
History of Present Illness
General
Chief Complaint: Male Genito-Urinary Symptoms
Source: patient
Exam Limitations: none
Time Seen by Provider: 07/27/25 23:47
Nursing documentation reviewed up to this point in time: agreed with
History of Present Illness
History of Present Illness:
Patient with history of sepsis secondary to bacterial prostatitis, requiring 6 weeks of antibiotics, last dose taken 1 week ago, presents to ED secondary to sudden onset of chills sensation this evening. Denies fever. Denies nausea or vomiting.
Denies coughing. Denies diarrhea. Denies vomiting. Denies recent change in medications or diet.
Review of Systems
Review of Systems
Allergies reviewed?: Yes
All Other Systems: ROS reviewed and negative except as documented in HPI and ROS
Constitutional: Reports chills
Respiratory: Reports no symptoms
Cardiac: Reports no symptoms
ABD/GI: Reports no symptoms; Denies vomiting or diarrhea
: Reports no symptoms
Musculoskeletal: Reports no symptoms
Skin: Reports no symptoms
Neurological: Reports no symptoms
Phy Exam
Physical Exam
Physical Exam:
Physical Exam
General: mild distress, not acutely ill. afebrile
Head: nc/at. eomi
Neck: supple. no meningeal signs.
Heart: s1/s2 regular rhythm but tachycardic
Lungs: no acute respiratory distress. clear bilaterally
Abdomen: normal bowel sounds. not tender. no distention.
Neuro: alert and oriented x 3. no focal neurological deficits
Skin: no rash
Psychiatric: well kept. interactive and cooperative
Extremities: no edema. no calf tenderness.
Course
Orders/Labs/Results
Orders:
Orders
07/27/25 22:34
Urinalysis Reflex To Culture Urgent
Date Specimen was Collected: 07/27/25
Time Specimen was Collected: 22:33
Urine Microscopic Reflex Cult Urgent
Chlamydia/GC by PCR Urgent
MORALES Source: U
Specimen Description:
Source:: URINE
Date Specimen was Collected: 07/27/25
Time Specimen was Collected: 22:33
Comment: Add on per Adore Krueger MD on 07/28/2025
Urine Culture Urgent
MORALES Source: U
Specimen Description:
Date Specimen was Collected: 07/27/25
Time Specimen was Collected: 22:33
07/28/25 00:41
Complete Blood Count/With Diff Urgent
Comprehensive Metabolic Panel Urgent
Lactic Acid Q4H
Comment: CANCEL 2nd LACTIC ACID IF 1st LACTIC ACID IS LESS THAN 2
Magnesium Urgent
Blood Culture Q30M
MORALES Source: Blood/Venous
Specimen Description:
Blood Culture Q30M
MORALES Source: Blood/Venous
Specimen Description:
07/28/25 02:03
Ertapenem [Invanz] 1,000 mg 0.9% Sodium Chloride [Nss] 50 ml IV NOW
07/28/25 02:32
Ondansetron Injectable [Zofran] 4 mg IV Q6HPRN PRN
07/28/25 02:34
COVID-19 Antigen Urgent
Source: Nasal Swab
Influenza A+B Rapid Molecular Urgent
MORALES Source: Nasal Swab
Specimen Description:
07/28/25 02:35
Admit/Transfer Patient As Directed
Co-Sign Provider:
Level of Care: Inpatient admission
Assign to:: Medical/Surgical
Physician / Group: David
Diagnosis: Recurrent Prostatitis
Reason for Hospitalization: Recurrent prostatitis
Expected length of stay greater than two midnights?: Yes
ELOS- Estimated Length of Stay in days: 2
I certify the patient meets the requirements for IP care: Yes
07/28/25 02:36
PRN Pain Medication Management As Directed
May give lesser potent ordered pain med per pt: Yes
preference::
Protocol:: Medication orders for pain may be administered in a
manner that supports deferring to patient preference
when the pt is:
- Requesting an ordered lesser potent pain medication.
Least to most potent pain medications are defined
as: acetaminophen < NSAID < tramadol < opioids
(morphine, oxycodone, hydromorphone).
- Requesting a lesser dose of the same medication IF
ORDERED.
- Requesting a less intrusive route of administration
if both routes are prescribed by the provider (PO <
IV).
07/28/25 02:38
Code Status As Directed
Resuscitation Status: Full Code
07/28/25 03:00
0.9% Sodium Chloride 500 ml [Nss] 500 ml IV 100 mls/hr
07/28/25 03:36
Acetaminophen [Tylenol] 650 mg PO Q4HPRN PRN
Bisacodyl [Dulcolax] 10 mg RECTAL [id number] PRN
Docusate W/Senna [Senokot-S] 1 tablet PO BIDPRN PRN
Ketorolac [Toradol] 10 mg IV Q6HPRN PRN
Polyethylene Glycol Powder [Miralax] 17 grams PO DAILYPRN PRN
07/28/25 03:36
Consult Notification Routine
Specialty to Notify: Infectious Disease
Date consulting provider notified: 07/28/25
Time consulting provider notified: 11:31
Notified:: Provider
Comment: tt sent
INFECTIOUS DISEASE CONSULT Routine
Consulting Provider: Adore Krueger
Was physician already notified: No
Reason for consult: recurrent uti/prostatitis ESBL ecoli s/p 6wks ivanz
Activity As Directed
Activity Level: With Assistance
Vital Signs As Directed
Frequency: Per unit guidelines
Pulse Ox/spot Check [RESP] Routine
Quantity: 1
DX Deep Vein Thrombosis Video Routine
07/28/25 Breakfast
Cholesterol Lowering
At Your Request: Full Participation
Does patient need a safe tray?: No
Cholesterol Lowering: Sodium, 2 Gram
07/28/25 07:07
Basic Metabolic Panel IN AM
Complete Blood Count/No Diff IN AM
07/28/25 08:00
Rosuvastatin Calcium [Crestor] 10 mg PO DAILY
Saccharomyces Boulardii [Florastor] 500 mg PO BID
Tamsulosin [Flomax] 0.4 mg PO DAILY
07/28/25 18:00
Enoxaparin Sodium [Lovenox] 40 mg SC QPM
07/29/25 02:30
Ertapenem [Invanz] 1,000 mg 0.9% Sodium Chloride [Nss] 50 ml IV Q24H
Abnormal Lab Results
07/27/25 07/28/25
22:34 00:41
WBC 15.3 H 10^3/uL
(4.8-10.8)
MCV 78.9 L fL
(80.0-94.0)
MCH 26.4 L pg
(27.0-31.0)
Abs Immat Gran (auto) 0.1 H 10^3/uL
(0-0.05)
Absolute Neuts (auto) 13.5 H 10^3/uL
(1.4-6.5)
Absolute Lymphs (auto) 0.9 L 10^3/uL
(1.2-3.4)
Absolute Monos (auto) 0.8 H 10^3/uL
(0.1-0.6)
Neutrophils % 88.2 H %
(42.2-75.2)
Lymphocytes % 5.6 L %
(20.5-51.1)
Glucose 113 H mg/dl
(70-99)
Total Bilirubin 1.4 H mg/dl
(0.2-1.3)
Total Protein 8.3 H g/dl
(6.3-8.2)
Urine Ketones 1+ A
(Negative)
Ur Occult Blood Reflex 3+ A
(Negative)
Urine Nitrite (Reflex) Positive A
(Negative)
Leukocyte Esterase Rfl 2+ A
(Negative)
Urine RBC 7-10 A /HPF
(0-2)
Urine WBC (Reflex) >100 A /HPF
(0-5)
Urine Bacteria (Reflex) Many A
(Negative)
Urine Albumin (Reflex) 1+ A
(Neg - Trace)
07/28/25 00:41
07/28/25 00:41
Vital Signs
Initial and Last Documented VS:
Initial Vital Signs
Temp Pulse Resp BP Pulse Ox
98.8 F 129 18 132/78 96
07/27/25 22:29 07/27/25 22:29 07/27/25 22:29 07/27/25 22:29 07/27/25 22:29
Last Documented Vital Signs
Temp Pulse Resp BP Pulse Ox
97.8 F 81 18 117/69 98
07/28/25 15:18 07/28/25 15:18 07/28/25 15:18 07/28/25 15:18 07/28/25 15:18
MDM/Problems Addressed
MDM/Problems Addressed:
History, exam, along with blood work as well as urinalysis, concerning for recurrent sepsis, secondary to UTI. Urine culture from May reviewed, significant for multidrug-resistant ESBL. Patient will be admitted for IV antibiotics. Patient may
benefit from ID consultation, as he may need prolonged course of IV antibiotics.
*Pulse Oximetry
SaO2: 95
Oxygen Mode of Delivery: Room air
Patient hypoxic: no
*Critical Care Note
Total Time (30-74mins, 75-104mins- exclusive of procedures): Not Applicable
ED Attending Note
-
Portions of this chart may have been created with voice recognition software.� Occasional wrong word or��sound alike� substitutions may have occurred due to the inherent limitations of voice recognition software.
Discharge Plan
Departure
Patient Disposition: Admit
Date of Disposition: 07/28/25
Time of Disposition: 02:09
Presentation/result/management discussed w/ accepting MD/DO: Hospitalist
Discharge Problem:
Sepsis, Acute UTI
Interventions
Interventions:
*Risk Screen - Suicide Last Done: 07/27/25 22:29
*General Assessment Last Done: 07/27/25 22:29
*Neglect/Abuse Screening Last Done: 07/27/25 22:29
*ED COVID-19 Vaccine History Last Done: 07/28/25 00:08
*ED Influenza Vaccine History Last Done: 07/28/25 00:08
[facility] Fall Risk Assessment Tool Last Done: 07/28/25 00:08
*Nursing Disposition Last Done: 07/28/25 03:33
ED-Male Genitourinary Assessment Last Done: 07/28/25 00:05
Discharge Date and Time
Discharge Date/Time: 07/28/25 03:37
--- NOTE | 2025-07-28 02:12 | HPS.HSE ---
Family Physician
-
Family Physician: Andre Washburn
Chief Complaint
-
Chills and shortness of breath
History of Present Illness
This is a 65-year-old male with past medical history significant for BPH, prostatitis in the setting of Biopsy of the prostate with resulting sepsis, recurrent infection with epididymoorchitis in May status post prolonged course of ertapenem
when he presented to the emergency department with chills and some shortness of breath.
Patient reported that he finished his treatment with ertapenem (6 weeks) on July 20. He reports that he has been symptom-free and doing well since then. He then suddenly developed onset of chills just prior to coming to the emergency
department. He says he has some incontinence but denies any other urinary symptoms such as urgency frequency flank pain any nausea or vomiting. He did say he was nauseous while I was discussing with him in the emergency department. He denies
having any recent hematuria. He denies history of kidney stones. He denies any red fevers. Patient denies any recent instrumentation. He denies any cough.
In the emergency department he was afebrile similar to his prior episode of sepsis with a temp of 98.8, blood pressure was 127/61 with a pulse rate of 95 and oxygen saturation of 95% on room air.
He had a white count of 15, hemoglobin platelets were normal. His electrolytes BUN and creatinine were normal. Glucose was normal. UA is again markedly positive with nitrites, leukocyte esterase, and many bacteria.
Medical History
Past Medical History
Past Medical History: Reports Other
Additional Past Medical History:
BPH
Septic Shock s/p Prostate Biopsy, MDR ESBL E coli (04/2025)
Past Surgical History: Reports Other
Additional Past Surgical History:
Prostate Biopsy (05/18/25)
[place] [place] Surgery R Ankle
Bilateral Inguinal Hernia Repairs
Social History
Tobacco: Non-smoker
Alcohol: Occasional
Drug: None
Family History
Family History: Not pertinent
Allergies / Home Medications
Allergies reflects when Allergies were last updated in [employer].
Home Medications with original date entered in [employer]
Allergy/Medication List:
Allergies
Allergy/AdvReac Type Severity Reaction Status Date / Time
diazepam (From Valium) Allergy Unknown Verified 07/20/25 09:41
Home Medications
ascorbic acid (vitamin C) 500 mg tablet (Vitamin C) 500 mg PO DAILY Supplement 06/10/25
chondroitin sulfate A sodium 400 mg capsule 400 mg PO DAILY Supplement 06/10/25
rosuvastatin 10 mg tablet 10 mg PO DAILY High Cholesterol 06/10/25
vitamin B complex 1 cap PO DAILY Supplement 06/10/25
Ertapenem [Invanz] 1,000 mg 120 mls/hr IV Q24H 06/13/25
Saccharomyces boulardii 250 mg capsule (Florastor) 500 mg PO BID 06/20/25
tamsulosin 0.4 mg capsule 0.4 mg PO DAILY 07/05/25
Review of Systems
-
History Source: Patient
A 12 point ROS was completed and negative except as noted: Yes
Constitutional: Reports Chills; Denies Fever or Fatigue
Respiratory: Reports Trouble Breathing; Denies Cough
Cardiac: Denies Chest Pain or Palpitations
Abdomen/GI: Denies Abdominal Pain, Nausea, Vomiting or Diarrhea
: Reports Other (R testicle pain and swelling.); Denies Dysuria, Frequency, Flank Pain, Incontinence, Difficulty Voiding, Bleeding or Discharge
Neurological: Denies Dizzy or Headache
Psych: Denies Depression or Anxiety
Physical Exam
Vital Signs
Vital Signs
Temp Pulse Resp BP Pulse Ox
98.8 F 95 22 127/61 95
07/27/25 22:29 07/28/25 01:30 07/28/25 01:30 07/28/25 01:00 07/28/25 02:09
Physical Exam
General: No Apparent Distress
HEENT: Moist mucous membranes and PERRLA
Respiratory: Clear; No Wheezes, Rales or Rhonchi
Cardiac: S1/S2 and Regular Rhythm; No Murmur
GI: Soft, Non Tender, Non Distended and Normal Bowel Sounds
Genito-urinary: No costovertebral tender
Musculoskeletal: No Clubbing, No Cyanosis and No Edema
Neuro: AO x 3 and Nonfocal/grossly intact
Psych: Calm
Laboratory Results
-
07/28/25 00:41
07/28/25 00:41
Laboratory Results
Lactic Acid Cancelled 07/28/25 04:30
Total Bilirubin 1.4 mg/dl (0.2-1.3) H 07/28/25 00:41
AST 32 U/L (17-59) 07/28/25 00:41
ALT 37 U/L (0-50) 07/28/25 00:41
Alkaline Phosphatase 82 U/L (38-126) 07/28/25 00:41
Data Reviewed
-
Lab Data: Labs Reviewed by me
Old Records: Reviewed
Impression/Plan
-
IMPRESSION:
65-year-old with past medical history of BPH, prior sepsis in the setting of prostatitis from a biopsy, prior epididymoorchitis, ESBL E. coli genitourinary infection status post prolonged ertapenem for epididymoorchitis who now presents again to the
emergency department with chills and found to have a markedly positive urinalysis concerning for recurrent urinary tract infection. He had prior imaging with a CT scan in May showing no evidence of abscess, a follow-up MRI on June 12 showed
no evidence of prostatic abscess but scrotal cellulitis and right sided epididymoorchitis.
PLAN:
Complicated urinary tract infection -recurrent prostatitis versus recurrent orchitis. It has been suggested that if the patient has recurrent infection he is a candidate for surgical approach with prostatectomy versus orchiectomy.
� Admit to [facility]
� Urine cultures
� Blood cultures
� Will start on IV ertapenem
� Pain control and antiemetics
� ID consultation
� Urology consultation
DVT prophylaxis�Lovenox subcu
CODE STATUS�full code
[2025-07-28] MEDS: INVANZ 60 MG IV (02:39)
[2025-07-28] MEDS: NSS 500 IV (02:40)
[2025-07-28 03:04] LABS: COVID-19 Antigen Negative (Negative)
--- NOTE | 2025-07-28 04:00 | PTCARENOTE ---
Pt arrived to [address] from ED, ambulates with x1 standby assist. AAOx3, no pain, VSS. Pt oriented to room, call tinoco in reach, bed alarm in place. Plan of care reviewed with pt.
--- NOTE | 2025-07-28 05:43 | PTCARENOTE ---
Pt refusing any further IVFs, stating 'I've been drinking fluids. I don't want to get overloaded. I was told I would get a midline placed and go home tomorrow'. JACOBY Quevedo notified, no change in orders and will encourage pt to reconsider starting
IVFs.
[2025-07-28] MEDS: FLORASTOR 500 MG PO (08:10)
[2025-07-28] MEDS: CRESTOR 10 MG PO (08:11)
[2025-07-28] MEDS: NSS IV ×2 (08:11→12:27)
[2025-07-28 08:17] LABS: Hematocrit 38.5 % (39.0-52.0); Hemoglobin 12.8 g/dL (13.0-18.0); Mean Corp Hgb Conc. 33.2 g/dL (33.0-37.0); Mean Corpuscular Volume 80.0 fL (80.0-94.0); Platelet Count 209 10^3/uL (130-400); Red Cell Dist. Width 13.7 % (11.5-14.5)
[2025-07-28 08:48] LABS: Blood Urea Nitrogen 13 mg/dl (9-20); Calcium 8.6 mg/dl (8.4-10.2); Carbon Dioxide 25 mmol/L (22-30); Chloride 103 mmol/L (98-107); Estimated Creatinine Clearance 75 ml/min; Glucose 95 mg/dl (70-99); Potassium 3.7 mmol/L (3.5-5.1); Sodium 135 mmol/L (135-145); eGFR > 60.00
--- NOTE | 2025-07-28 11:37 | W.PN.HOSP.TC ---
Today's Communication/Plan
-
Feels better, requests to discharge today
Assessment / Plan
Assessment / Plan
65M w/ BPH, h/o septic shock 2/2 prostatitis after a prostate biopsy with ESBL E. coli bacteremia, recurrent ESBL infection with epididymoorchitis s/p 6 weeks IV or ertapenem, p/w chills and recurrent urinary tract infection.
Complicated urinary tract infection
Concern for recurrent prostatitis versus recurrent orchitis. It has been suggested that if the patient has recurrent infection he is a candidate for surgical approach with prostatectomy versus orchiectomy. Urology has been consulted. Patient
tells me he does not want that kind of surgery at this time, he wants to try antibiotics again. Patient requested discharge today.
Leukocytosis improving. Mildly elevated T. bili noted, no abdominal complaints.
� Urine cultures pending, added fosfomycin sensitivity
� Blood cultures pending
� Empiric IV ertapenem
� Pain control and antiemetics
� ID consultation, D/W on-call physician
� Urology consultation, D/W on-call physician. Flomax ordered.
DVT PPx
SCDs
Anticipated Discharge: Today
Subjective/Interval History
-
Date of Service: July 28, 2025
Patient states he feels well, denies further chills, no dysuria, no fever, states his scrotal swelling from last admit is much improved. His s/o is at bedside.
Objective Data
-
Labs:
Laboratory Results
07/28/25 07/28/25
00:41 07:07
WBC 15.3 H 13.7 H
Hgb 14.1 12.8 L
Hct 42.2 38.5 L
Plt Count 210 209
Sodium 137 135
Potassium 4.3 3.7
Chloride 102 103
Carbon Dioxide 26 25
BUN 14 13
Creatinine 1.1 1.0
Glucose 113 H 95
Calcium 9.4 8.6
Total Bilirubin 1.4 H
AST 32
ALT 37
Alkaline Phosphatase 82
Vital Signs:
Vital Signs
Temp Pulse Resp BP Pulse Ox
98.6 F 94 18 112/69 95
07/28/25 07:20 07/28/25 07:20 07/28/25 07:20 07/28/25 07:20 07/28/25 07:20
I&O
07/27/25 07/28/25 07/29/25
06:59 06:59 06:59
Intake Total 1160 / 1160
Balance 1160 / 1160
Review of Systems
-
History Source: Patient
All other systems: Reviewed and negative
Physical Exam
-
General: No Apparent Distress
HEENT: Moist Mucous Membranes, Anicteric and PERRLA
Respiratory: Clear to Auscultation; Negative Wheezes, Rales or Rhonchi
Cardiac: Regular Rhythm and S1/S2; Negative Murmur, Rub or Gallop
GI: Soft, Nontender, Nondistended and Normal Bowel Sounds
Musculoskeletal: No Edema
Skin: Warm and Dry; Negative Rash, Ulcers or Lesions
Neuro: Awake and AO x 3
Hematologic / Lymphatic: No Lymphadenopathy
Psych: Calm
--- NOTE | 2025-07-28 12:19 | CON.ID ---
Consultation
-
Date/Time Consultation Requested: 07/28/25 3:36
Date/Time Consultation Performed: 07/28/25 12:19
Requesting Provider: Dr Hernandez
Performing Provider: Dr Krueger
Reason for Consultation: recurrent uti/prostatitis ESBL ecoli s/p 6wks ivanz
Chief Complaint / Past History
Chief Complaint
Chills and shortness of breath
History of Present Illness
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 he was seen 05/18 for a transrectal prostate biopsy with prophylactic cefdinir and tobramycin during the procedure, later presented to the ER with rigors, perineal pain, CT a/p mild colitis of the
transverse colon no prostate abscess, blood and urine cultures with ESBL E coli and he was treated with meropenem/ertapenem 05/19- 06/03/25. He completed that course then about 06/08, 5 days after the course he developed right scrotal discomfort and
chills but no red fevers or dysuria. He was referred to the ER where US showed R epididymo-orchitis, 06/12 he underwent MRI pelvis with and w/o showing no prostate abscess, right epididymis thickened and enhancing, testicle enhancing, he was
restarted on ertapenem. He completed 6 weeks of ertapenem 07/20 - 9 days ago - with full resolution of swelling, dysuria, and no pain with defecation. He has been sexually active with his , they are monogamous and do not practice insertive
anal intercourse. He has never had a STI. Then yesterday he was at [facility] and he had abrupt onset of shaking chills. He left the theather. He came to the ER, he had no urgency, dysuria, flank pain. Some nausea but no vomiting.
Had a bit of dripping after completing his stream. No hematuria or renal stones.
Since arrival this visit he has been afebrile, bp stable, wbc initially 15 increased from 4.1 last admission, wbc today 13.7, hbg 12.8, plt 209, there was left shift on arrival, na 137, cr 1.1 at his baseline, glucose 113, t bili 1.4 , ast 32, alt
37, alk phos 82, UA >100 WBC/hpf, 7-10 rbcs, many bacteria, covid ag negative, urine culture in progress, no imaging done thus far, 06/10 urine GC chlamydia PCR negative
Past History
Additional Past Medical History:
BPH
Septic Shock s/p Prostate Biopsy, MDR ESBL E coli (04/2025)
Additional Past Surgical History:
Prostate Biopsy (05/18/25)
[facility] Surgery R Ankle
Bilateral Inguinal Hernia Repairs
Allergy History:
diazepam (From Valium) Allergy (Intermediate, Verified 07/28/25 03:53)
Unknown
Medications Reviewed: Yes
Social History
Tobacco: Non-Smoker
Alcohol: Occasional
Drug: None
Family History
Family History: Not Pertinent
Review of Systems
Review of Systems
A 12 point ROS was completed and negative except as noted: Yes
Constitutional: Reports Chills; Denies Fever or Fatigue
Respiratory: Reports Trouble Breathing; Denies Cough
Cardiac: Denies Chest Pain or Palpitations
Abdomen/GI: Denies Abdominal Pain, Nausea, Vomiting or Diarrhea
: Reports Other (R testicle pain and swelling.); Denies Dysuria, Frequency, Flank Pain, Incontinence, Difficulty Voiding, Bleeding or Discharge
Neurological: Denies Dizzy or Headache
Psych: Denies Depression or Anxiety
Vital Signs
Temp Pulse Resp BP Pulse Ox
98.6 F 94 18 112/69 95
07/28/25 07:20 07/28/25 07:20 07/28/25 07:20 07/28/25 07:20 07/28/25 07:20
Physical Exam
Physical Exam
Constitutional: No Acute Distress
Cardiovascular: Regular Rate and S1/S2; Negative Murmur or Rub
Pulmonary: Clear and Symmetric; Negative Wheezes, Rales or Rhonchi
Gastrointestinal: Soft, Non Tender, Non Distended and Normal Bowel Sounds
Genito-Urinary: Other (mild tenderness over the posterior aspect of the R testicle, L testicle nontender, no swelling of either testicle; prostate enlarged but not boggy and no tenderness)
Skin: Warm and Dry; Negative Rash or Jaundice
Lab / Diagnostic Study Results
07/28/25 07:07
07/28/25 07:07
Abs Immat Gran (auto) 0.1 10^3/uL (0-0.05) H 07/28/25 00:41
Absolute Neuts (auto) 13.5 10^3/uL (1.4-6.5) H 07/28/25 00:41
Absolute Lymphs (auto) 0.9 10^3/uL (1.2-3.4) L 07/28/25 00:41
Absolute Monos (auto) 0.8 10^3/uL (0.1-0.6) H 07/28/25 00:41
Absolute Basos (auto) 0.0 10^3/uL (0-0.2) 07/28/25 00:41
Immature Gran % 0.5 % (0-0.5) 07/28/25 00:41
Neutrophils % 88.2 % (42.2-75.2) H 07/28/25 00:41
Lymphocytes % 5.6 % (20.5-51.1) L 07/28/25 00:41
Monocytes % 5.4 % (1.7-9.3) 07/28/25 00:41
Eosinophils % 0.0 % (0-6) 07/28/25 00:41
Basophils % 0.3 % (0-2) 07/28/25 00:41
Lactic Acid Cancelled 07/28/25 04:30
Ur Squamous Epith Cells 0-2 /LPF (Few) 07/27/25 22:34
Microbiology Results
Micro:
07/28/25 02:34 Influenza Types A & B (DESTINI) - Final
Nasal Swab Negative for Influenza A & B, NAAT
Negative results must be combined with clinical observations
and patient history.
Nucleic Acid Amplification test (NAAT)performed on the
[employer] platform.
07/28/25 00:41 Blood Culture - Pending
Blood/Venous
07/28/25 00:41 Blood Culture - Pending
Blood/Venous
07/27/25 22:34 Urine Culture - Pending
Urine
Assessment / Plan
Suspected Relapse of Prostatitis
History of Prostatitis and epididymoorchitis due to ESBL E coli
- blood cultures x2 are in progress
- UA with gross pyuria, urine culture in progress
- add on GC/chlyamia PCR, note this was negative 06/10
- additional workup if urine culture is negative to be considered
- CT a/p with IV contrast ([employer] tech not available on the weekend)
- can start fosfomycin today, repeat dosing Q72 hours x14 doses
- patient would like script sent to his [facility]
- I sent additonal script to [facility] rx coupon provided to patient for [facility] as cost is substantially cheaper
- ID service will follow up urine culture when available
[2025-07-28] MEDS: MONUROL 3 GM PO (14:06)
--- NOTE | 2025-07-28 15:01 | W.DCSUMMARY ---
Discharge Summary
Discharge Data
Date of Admission: 07/28/25
Date of Discharge: 07/28/25
Total time spent discharging patient (in min): 35
-
Pending Results: Yes (Urine Cx, blood culture, CT a/p report)
Hospital Course
Attending physician on day of discharge:
Esther Santamaria MD
Discharge diagnosis:
UTI
Consultations:
ID
Urology
Procedures:
None
Hospital course:
65M w/ BPH, h/o septic shock 2/2 prostatitis after a prostate biopsy with ESBL E. coli bacteremia, recurrent ESBL infection with epididymoorchitis s/p 6 weeks IV ertapenem, p/w chills and recurrent urinary tract infection. He had leukocytosis but
was afebrile and his symptoms resolved. He was started on IV ertapenem. He was seen by ID who changed him to oral fosfomycin, 1 dose given inpatient, Rx for 3 mg every 72 hours times 14 doses sent to his pharmacy. Fosfomycin sensitivities were
added to urine culture. CT abdomen pelvis was performed as well. ID will follow-up as outpatient for antibiotic management. Urology was also consulted however patient stated that he did was not interested in prostatectomy/orchiectomy, wanted to
try medical management first.
Physical exam on discharge:
See note
Discharge disposition:
Home
Discharge Plan
-
Patient Disposition: Home (Routine Discharge)
Discharge Diagnosis/Procedures: UTI
Diet: Regular
Activity: As tolerated
Referrals:
Tank Mascorro MD [Active, Urology]
Adnre Washburn MD [Family Provider, Internal Medicine]
Adore Krueger MD [Active, Infectious Diseases]
Prescriptions:
New
fosfomycin tromethamine 3 gram packet
3 g PO Q3D Qty: 14 0RF
Continued
vitamin B complex Capsule
1 cap PO DAILY
rosuvastatin 10 mg Tablet
10 mg PO DAILY
chondroitin sulfate A sodium 400 mg Capsule
400 mg PO DAILY
ascorbic acid (vitamin C) [Vitamin C] 500 mg Tablet
500 mg PO DAILY
Saccharomyces boulardii [Florastor] 250 mg Capsule
500 mg PO BID
Discontinued
Ertapenem [Invanz] 1000 MG
0.9% Sodium Chloride [Nss] 50 ML
120 mls/hr IV Q24H
Ordered By: Corinna Dahl MD
Last Taken: Unknown
Discharge Orders:
Discharge Patient (As Directed); Ordered 07/28/25
Ordered By: Esther Santamaria
Discharge Date and Time
Print Language: CUBAN
--- NOTE | 2025-07-28 16:34 | CM ---
Patient seen at bedside x2. Patient lives with in a 2 story home. Patient plan is for discharge home with no needs. CM provided information about advance directives and patient plan is for discharge home to discuss with patient . PCP is "José Miguel"Wu and he uses the [facility] in [place]. CM will continue to follow for discharge planning needs.
Plan; home with no needs at this time
== END 2025-07-28 17:11 | disposition home or self-care (01) | DRG 690 ==
LOC: 4 WEST ACU 02:46
PROVIDERS: ADMITTING PHYSICIAN Internal Medicine; ATTENDING PHYSICIAN Internal Medicine; CONSULT PHYSICIAN Student in an Organized Health Care Education/Training Program; EMERGENCY PHYSICIAN Emergency Medicine; FAMILY PHYSICIAN Internal Medicine
DX: N39.0 Urinary tract infection, site not specified (principal); N40.0 Benign prostatic hyperplasia without lower urinary tract symptoms; N41.9 Inflammatory disease of prostate, unspecified; Z87.440 Personal history of urinary (tract) infections; Z11.52 Encounter for screening for COVID-19
CPT/HCPCS: 74177; 80048; 80053; 81003; 81015; 83605; 83735; 85025; 85027; 87040; 87077; 87086; 87181; 87186; 87491; 87502; 87591; 87811; 96365; 99284; J1335; Q9967

== ENCOUNTER → 2025-08-13 15:00 | Outpatient (REF) | payer OTHER, SELFPAY | LOC: RCS 15:00 | PROVIDERS: ATTENDING PHYSICIAN Internal Medicine Cardiovascular Disease; FAMILY PHYSICIAN Internal Medicine | DX: R06.02 Shortness of breath (principal) | CPT/HCPCS: 93306 ==

== ENCOUNTER 2025-08-22 07:17 | Outpatient (RCR) | payer OTHER, SELFPAY | END 2025-08-22 23:59 | disposition home or self-care (01) | LOC: RPT 07:17 | PROVIDERS: ATTENDING PHYSICIAN Internal Medicine | DX: R53.1 Weakness (principal); Z73.6 Limitation of activities due to disability; R53.83 Other fatigue; M79.652 Pain in left thigh; R20.0 Anesthesia of skin; M54.9 Dorsalgia, unspecified; Z87.440 Personal history of urinary (tract) infections | CPT/HCPCS: 97110 ==